=== PATIENT | male | born 1965 | race Hispanic/Latino ===

== ENCOUNTER 2019-06-24 09:41 | Outpatient (CLI) | payer BC ==
--- NOTE | 2019-06-24 11:56 | MRI ---
MRI LEFT SHOULDER PERFORMED WITHOUT CONTRAST ENHANCEMENT: Date: 06/24/19 HISTORY: Left shoulder pain. FINDINGS: There is mild arthrosis of the AC joint. There is a lower grade far anterior supraspinatus tendon tear and a very low grade undersurface tear near the junction of the supra and infraspinatus tendons. There is some mild tendinosis of the supras pinatus tendon also seen. Subscapularis muscle and tendon are normal. The biceps tendon is normal in position within the bicipi charisma groove. Slightly truncate appearance to the posterior and inferior labrum which may represent some mild degen erative fraying. There is some minimal increased signal change within the rotator cuff interval and a xillary pouch regions. This could suggest the presence of a mild capsulitis. IMPRESSION: 1. Low grade far anterior undersurface tear of the supraspinatus tendon, also with low grade undersu rface tearing near the junction of the supra and infraspinatus tendons. 2. Findings would suggest the possibility of a mild capsulitis. 3. Slightly truncate appearance to the posterior and inferior labrum. This could be on the basis of some degenerative fraying in this area. POS: TPC
== END 2019-06-24 09:42 | disposition home or self-care (01) ==
LOC: TBSIIMAG 09:41
PROVIDERS: ATTEND Orthopaedic Surgery
DX: M75.42 Impingement syndrome of left shoulder (principal); S46.812A Strain of other muscles, fascia and tendons at shoulder and upper arm level, left arm, initial encounter

== ENCOUNTER 2020-07-03 18:53 | Inpatient (IN) | payer BC ==
[~2020-07-03 18:53] MED LIST: Iopamidol-370 76% 500 ML 1 ML ONE
[2020-07-03 19:27] LABS: #Lymphocytes 1.1 thou/uL (1.20-3.40); #Monocytes 0.4 thou/uL (0.11-0.59); #Neutrophils 15.2 thou/uL (1.40-6.50); %Basophils 0.1 % (0.0-1.0); %Lymphocytes 6.4 % (21.0-51.0); %Monocytes 2.1 % (0.0-10.0); %Neutrophils 91.3 % (42.0-75.0); Hemoglobin 15.4 g/dL (14.0-18.0); Mean Corpuscular Hemoglobin 31.7 pg (27.0-31.0); Mean Corpuscular Volume 93.2 fL (78.0-98.0); Mean Platelet Volume 7.9 fL (7.4-10.4); Platelet Count 345 thou/uL (130-400); RBC Distribution Width 12.4 % (11.5-14.5); Red Blood Cell (RBC) Count 4.84 mill/uL (4.70-6.10); White Blood Cell (WBC) Count 16.7 thou/uL (4.8-10.8)
[2020-07-03 19:35] LABS: PTT 28.5 sec (22.9-36.1); Prothrombin Time 13.1 sec (12.0-14.7)
[2020-07-03 19:36] LABS: D-Dimer Test 1.93 *mcg/mL (0.27-0.43)
[2020-07-03 19:45] LABS: ALT (SGPT) 46 U/L (8-55); AST (SGOT) 33 U/L (5-34); Albumin 3.7 g/dL (3.5-5.0); Alkaline Phosphatase 212 U/L (40-110); Anion Gap 27 mmol/L (10-20); BUN (Urea Nitrogen) 49 mg/dL (8.4-25.7); Bilirubin, Total 0.4 mg/dL (0.2-1.2); Calc. Creatinine Clearance 0 mL/min (70-130); Calcium 9.1 mg/dL (7.8-10.44); Carbon Dioxide 19 mmol/L (22-29); Chloride 86 mmol/L (98-107); Globulin 5.5 g/dL (2.4-3.5); Glucose 547 mg/dL (70-105); Potassium 3.9 mmol/L (3.5-5.1); Protein, Total 9.2 g/dL (6.0-8.3); Sodium 128 mmol/L (136-145)
--- NOTE | 2020-07-03 20:14 | RAD ---
PORTABLE CHEST: Date: 07-03-2020 PROVIDED CLINICAL HISTORY: Shortness of breath, Covid positive. FINDINGS: Lungs are hyperinflated, limiting evaluation. The cardiac silhouette appears enlarged, like ly at least partially on the basis of portable technique. There is bilateral perihilar airspace disea se, left greater than right. No pleural fluid or pneumothorax apparent. IMPRESSION: Bilateral perihilar parenchymal opacity, changes can be seen in the setting of Covid pneumonia, but i s not specific. POS: RALPH
[2020-07-03] MEDS ORDERED: Cefepime 2 GM VIAL ONE (20:37)
--- NOTE | 2020-07-03 21:20 | CT ---
CT PULMONARY ANGIOGRAM WITH IV CONTRAST AND 3D MIP RECONSTRUCTIONS: Date: 07-03-2020 PROVIDED CLINICAL HISTORY: Shortness of breath FINDINGS: There is no evidence for central or segmental pulmonary embolus. There is fairly diffuse bilateral ground glass opacities. There is no consolidation, pleural fluid or pneumothorax apparent. The airway appears patent. There is no evidence for thoracic lymph node appar ent. Findings of fatty infiltration of the liver is demonstrated. The visualized portions of the upper abd omen appear otherwise unremarkable. The osseous structures demonstrate no concerning lytic or blastic lesions. IMPRESSION: 1. No evidence for central or segmental pulmonary embolus. 2. Diffuse bilateral ground glass opacities, compatible with inflammatory or atypical infectious pneu monitis. POS: RALPH
[2020-07-03] MEDS ORDERED: Metoclopramide HCl 10 MG/2 ML VIAL ONE (21:54)
[2020-07-03 22:19] LABS: Lactic Acid 1.9 mmol/L (0.5-2.2)
[2020-07-03 22:27] LABS: Troponin I Less than 0.010 ng/mL (< 0.028)
--- NOTE | 2020-07-03 22:41 | PDOC.FM ---
- Subjective Subjective: 54 yo M with HTN and DM here for worsening sxs. Sxs started 06/26. Tested positive on 06/28 at outside facility. No contacts or recent out of state toradol. Had fevers, chills, loss of taste and smell initially but since then those sxs have resolved. Due to worsening breathing and intractable hiccups for past two days he came into ER. He was placed on nasal cannula and is non hypoxic on 4L [place] - Objective Result Diagrams: 07/03/20 19:07 07/03/20 19:07 Dx/Plan (1) COVID-19 Code(s): U07.1 - COVID-19 Status: Acute (2) Diabetes Code(s): E11.9 - TYPE 2 DIABETES MELLITUS WITHOUT COMPLICATIONS Status: Acute (3) Hypertension Code(s): I10 - ESSENTIAL (PRIMARY) HYPERTENSION Status: Acute - Plan Plan: #Acute Hypoxic respiratory failure 2/2 COVID PNA -Sxs started 06/26, COVID+ on 06/28 -Requiring 4L O2 to maintain 95% saturation, mildly tachpneic, clinically stable otherwise -CTA neg for PE, but diffuse b/l ground glass opacities -Given vanc & cefepime in ER, will continue abx pending procal -Decadron, remdesivir & convalescent plasma -Admit to floor, monitor #Hyponatremia -2/2 WYATT vs. CKD -128, no changes in mentation -could be 2/2 renal injury, transient SIADH from acute process -Physiologic fluid resuscitation, recheck in AM #Intractable hiccups -Gabapentin, renally dosed #WYATT vs. CKD -baseline unknown but pt denies h/o this -Cr 3.11, gfr 21, electrolytes stable -Hold metformin & lisinopril -Will obtain urine studies -bolus & maintenance fluids, recheck in AM #Elevated lactic acid -3.4, downtrended to 1.9 #HTN -hold lisinopril, monitor BPs, can add PRNs if needed #DM2 -well controlled per patient, will check a1c -hold metformin due to WYATT/CKD -sliding scale pcp: ana admit: medical/inpt dvt ppx: 40 lovenox daily abx: none dispo: >48 hours
[2020-07-03] MEDS ORDERED: Dextrose 5% in Water 1,000 ML IV PRN (23:23)
[2020-07-03] MEDS ORDERED: Lactated Ringer's 1,000 ML IV SCH (23:30)
[2020-07-03] MEDS ORDERED: Dexamethasone 4 mg/ml Vial SLOW IVP SCH (23:30)
[2020-07-03] MEDS ORDERED: Dexamethasone 10 MG/ML VIAL ONE (23:46)
[2020-07-03] MEDS ORDERED: Gabapentin 300 MG CAP PO SCH (23:47)
[2020-07-03] MEDS ORDERED: Gabapentin 300 MG CAP PO PRN (23:48)
--- NOTE | 2020-07-03 23:55 | PDOC.FPRHP ---
- History of Present Illness Chief Complaint: breathing History of Present Illness: 54 yo M with HTN and DM here for worsening sxs. Sxs started 06/26. Tested positive on 06/28 at outside facility. No contacts or recent out of state toradol. Had fevers, chills, loss of taste and smell initially but since then those sxs have resolved. Due to worsening breathing and intractable hiccups for past two days he came into ER. He was placed on nasal cannula and is non hypoxic on 4L [place] ED Course: Given vanc, cefepime & reglan - Allergies/Adverse Reactions Allergies Allergy/AdvReac Type Severity Reaction Status Date / Time No Known Drug Allergies Allergy Verified 07/04/20 18:12 - History PMHx:DM2, HTN PSHx: denies FHx:n/c Social: Denies TAD - Review of Systems General: reports: fever/chills, weight/appetite/sleep changes ENT: denies: nasal congestion, rhinorrhea Respiratory: reports: cough, shortness of breath Cardiovascular: denies: chest pain Gastrointestinal: denies: nausea, vomiting, diarrhea, abdominal pain Skin: denies: rashes, lesions Musculoskeletal: denies: pain, tenderness Neurological: reports: weakness. denies: numbness, syncope, seizure - Vital signs BP: 139/88, MAP: 105, Pulse: 103, Resp: 24, Pain: 0, O2 sat: 93 on (4L Oxygen), Time: 07/03/2020 23:04. Wt: 104kg - Physical Exam Constitutional: NAD, awake, alert and oriented HEENT: normocephalic and atraumatic, EOMI, conjunctiva clear, MMM Neck: supple, FROM, trachea midline Chest: no-tender to palpation, no lesions Heart: normal S1/S2, no murmurs/rubs/gallops -Heart: tachycardic Lungs: no respiratory distress, good air movement, no wheezing -Lungs: mild bibasilar crackles Abdomen: soft, non-tender, bowel sounds present Musculoskeletal: normal structure, normal tone, ROM grossly normal Neurological: no focal deficit, CN II-XII intact Skin: no rash/lesions, good turgor, capillary refill <2 seconds Heme/Lymphatic: no unusual bruising or bleeding, no purpura Psychiatric: normal mood and affect, good judgment and insight FMR H&P: Results - Labs Result Diagrams: 07/04/20 05:43 07/04/20 05:43 Lab results: WBC 16.7 thou/uL (4.8-10.8) H 07/03/20 19:07 Hgb 15.4 g/dL (14.0-18.0) 07/03/20 19:07 Hct 45.2 % (42.0-52.0) 07/03/20 19:07 MCV 93.2 fL (78.0-98.0) 07/03/20 19:07 Plt Count 345 thou/uL (130-400) 07/03/20 19:07 Neutrophils % 91.3 % (42.0-75.0) H 07/03/20 19:07 Sodium 128 mmol/L (136-145) L 07/03/20 19:07 Potassium 3.9 mmol/L (3.5-5.1) 07/03/20 19:07 Chloride 86 mmol/L (98-107) L 07/03/20 19:07 Carbon Dioxide 19 mmol/L (22-29) L 07/03/20 19:07 BUN 49 mg/dL (8.4-25.7) H 07/03/20 19:07 Creatinine 3.11 mg/dL (0.7-1.3) H 07/03/20 19:07 Glucose 547 mg/dL (70-105) H 07/03/20 19:07 Lactic Acid 1.9 mmol/L (0.5-2.2) 07/03/20 21:49 Calcium 9.1 mg/dL (7.8-10.44) 07/03/20 19:07 Total Bilirubin 0.4 mg/dL (0.2-1.2) 07/03/20 19:07 AST 33 U/L (5-34) 07/03/20 19:07 ALT 46 U/L (8-55) 07/03/20 19:07 Alkaline Phosphatase 212 U/L (40-110) H 07/03/20 19:07 Serum Total Protein 9.2 g/dL (6.0-8.3) H 07/03/20 19:07 Albumin 3.7 g/dL (3.5-5.0) 12/28/20 19:07 - Radiology Interpretation Chest x-ray Status: image reviewed by me, report reviewed by me Additional comment: b/l perihilar parenchymal opacity CT scan - chest Status: report reviewed by me Additional comment: diffuse b/l ground glass opacities, no PE FMR H&P: A/P - Problem List (1) COVID-19 Current Visit: Yes Status: Acute Code(s): U07.1 - COVID-19 (2) Diabetes Current Visit: Yes Status: Acute Code(s): E11.9 - TYPE 2 DIABETES MELLITUS WITHOUT COMPLICATIONS (3) Hypertension Current Visit: Yes Status: Acute Code(s): I10 - ESSENTIAL (PRIMARY) HYPERTENSION - Plan #Acute Hypoxic respiratory failure 2/2 COVID PNA -Sxs started 06/26, COVID+ on 06/28 -Requiring 4L O2 to maintain 95% saturation, mildly tachpneic, clinically stable otherwise -CTA neg for PE, but diffuse b/l ground glass opacities -Given vanc & cefepime in ER, will continue abx pending procal -Decadron, remdesivir & convalescent plasma -Admit to floor, monitor #Hyponatremia -2/2 WYATT vs. CKD -128, no changes in mentation -could be 2/2 renal injury, transient SIADH from acute process -Physiologic fluid resuscitation, recheck in AM #Intractable hiccups -Gabapentin, renally dosed #WYATT vs. CKD -baseline unknown but pt denies h/o this -Cr 3.11, gfr 21, electrolytes stable -Hold metformin & lisinopril -Will obtain urine studies -bolus & maintenance fluids, recheck in AM #Elevated lactic acid -3.4, downtrended to 1.9 #HTN -hold lisinopril, monitor BPs, can add PRNs if needed #DM2 -well controlled per patient, will check a1c -hold metformin due to WYATT/CKD -sliding scale pcp: ana admit: medical/inpt dvt ppx: 40 lovenox daily abx: none dispo: >48 hours FMR H&P: Upper Level - Plan Date/Time: 07/03/20 3683 I, [], have evaluated this patient and agree with findings/plan as outlined by multicultural internship resident. Pertinent changes/additions are listed here. Addendum - Attending - Attending Attestation Date/Time: 07/04/202046 I personally evaluated the patient and discussed the management with Dr. Maradiaga and Clay last night in the ER. I agree with the History, Examination, Assessment and Plan documented above with any addition or exceptions noted below.
[2020-07-04] MEDS: Lactated Ringer's 1,000 ML IV SCH ×4 (00:59→20:57)
[2020-07-04 01:16] LABS: Hemoglobin A1c 10.6 % (4.0-6.0)
[2020-07-04 01:35] LABS: Troponin I Less than 0.010 ng/mL (< 0.028)
--- NOTE | 2020-07-04 05:42 | PDOC.FPRHP ---
- Allergies/Adverse Reactions Allergies Allergy/AdvReac Type Severity Reaction Status Date / Time No Known Drug Allergies Allergy Unverified 07/03/20 20:49 - History PMHx: PSHx: FHx: Social: - Vital signs BP: [] HR: [] RR: [] Tmax: [] Pox: []% on [] Wt: [] FMR H&P: Results - Labs Result Diagrams: 07/03/20 19:07 07/03/20 19:07 Lab results: WBC 16.7 thou/uL (4.8-10.8) H 07/03/20 19:07 Hgb 15.4 g/dL (14.0-18.0) 07/03/20 19:07 Hct 45.2 % (42.0-52.0) 07/03/20 19:07 MCV 93.2 fL (78.0-98.0) 07/03/20 19:07 Plt Count 345 thou/uL (130-400) 07/03/20 19:07 Neutrophils % 91.3 % (42.0-75.0) H 07/03/20 19:07 Sodium 128 mmol/L (136-145) L 07/03/20 19:07 Potassium 3.9 mmol/L (3.5-5.1) 07/03/20 19:07 Chloride 86 mmol/L (98-107) L 07/03/20 19:07 Carbon Dioxide 19 mmol/L (22-29) L 07/03/20 19:07 BUN 49 mg/dL (8.4-25.7) H 07/03/20 19:07 Creatinine 3.11 mg/dL (0.7-1.3) H 07/03/20 19:07 Glucose 547 mg/dL (70-105) H 07/03/20 19:07 Lactic Acid 1.9 mmol/L (0.5-2.2) 07/03/20 21:49 Calcium 9.1 mg/dL (7.8-10.44) 07/03/20 19:07 Total Bilirubin 0.4 mg/dL (0.2-1.2) 07/03/20 19:07 AST 33 U/L (5-34) 07/03/20 19:07 ALT 46 U/L (8-55) 07/03/20 19:07 Alkaline Phosphatase 212 U/L (40-110) H 07/03/20 19:07 C-Reactive Protein 30.44 mg/dL (= or < 0.5) H 07/04/20 00:55 Serum Total Protein 9.2 g/dL (6.0-8.3) H 07/03/20 19:07 Albumin 3.7 g/dL (3.5-5.0) 07/03/20 19:07 FMR H&P: A/P - Problem List (1) Acute respiratory failure with hypoxia Current Visit: Yes Status: Acute Code(s): J96.01 - ACUTE RESPIRATORY FAILURE WITH HYPOXIA (2) COVID-19 Current Visit: Yes Status: Acute Code(s): U07.1 - COVID-19 (3) Diabetes Current Visit: Yes Status: Acute Code(s): E11.9 - TYPE 2 DIABETES MELLITUS WITHOUT COMPLICATIONS (4) Hypertension Current Visit: Yes Status: Acute Code(s): I10 - ESSENTIAL (PRIMARY) HYPERTENSION - Plan #Acute Hypoxic respiratory failure 2/2 COVID PNA -Sxs started 06/26, COVID+ on 06/28 -Requiring 4L O2 to maintain 95% saturation, mildly tachpneic, clinically stable otherwise -CTA neg for PE, but diffuse b/l ground glass opacities -Given vanc & cefepime in ER, will continue abx as procal positive -Decadron, remdesivir & convalescent plasma -Admitted to medical, monitor #Hyponatremia -2/2 WYATT vs. CKD -128, no changes in mentation -could be 2/2 renal injury, transient SIADH from acute process -Physiologic fluid resuscitation #Intractable hiccups -Gabapentin, renally dosed #WYATT vs. CKD -baseline unknown but pt denies h/o this -Cr 3.11, gfr 21, electrolytes stable -Hold metformin & lisinopril -urine studies pending -bolus & maintenance fluids, recheck in AM #Elevated lactic acid -3.4, downtrended to 1.9 #HTN -hold lisinopril, monitor BPs, can add PRNs if needed #DM2 -A1C 10.6 -hold metformin due to WYATT/CKD -sliding scale pcp: ana admit: medical/inpt dvt ppx: 40 lovenox daily abx: none dispo: >48 hours FMR H&P: Upper Level - Plan Date/Time: 07/04/20 6095 I, [], have evaluated this patient and agree with findings/plan as outlined by internal controls manager resident. Pertinent changes/additions are listed here.
[2020-07-04 06:03] LABS: #Basophils 0.1 thou/uL (0.0-0.2); #Lymphocytes 0.5 thou/uL (1.20-3.40); #Monocytes 0.2 thou/uL (0.11-0.59); #Neutrophils 11.4 thou/uL (1.40-6.50); %Basophils 0.9 % (0.0-1.0); %Eosinophils 0.1 % (0.0-10.0); %Lymphocytes 4.4 % (21.0-51.0); %Monocytes 1.9 % (0.0-10.0); %Neutrophils 92.7 % (42.0-75.0); Hemoglobin 13.2 g/dL (14.0-18.0); Mean Corpuscular HGB CONC 32.5 g/dL (32.0-36.0); Mean Corpuscular Volume 92.3 fL (78.0-98.0); Mean Platelet Volume 7.5 fL (7.4-10.4); Platelet Count 365 thou/uL (130-400); RBC Distribution Width 12.3 % (11.5-14.5); Red Blood Cell (RBC) Count 4.39 mill/uL (4.70-6.10); White Blood Cell (WBC) Count 12.3 thou/uL (4.8-10.8)
[2020-07-04] MEDS ORDERED: HumaLOG 300 UNITS/3 ML VIAL ONE (06:04)
[2020-07-04 06:16] LABS: ALT (SGPT) 38 U/L (8-55); AST (SGOT) 31 U/L (5-34); Alkaline Phosphatase 153 U/L (40-110); Anion Gap 19 mmol/L (10-20); BUN (Urea Nitrogen) 45 mg/dL (8.4-25.7); Bilirubin, Total 0.4 mg/dL (0.2-1.2); Calc. Creatinine Clearance 0 mL/min (70-130); Calcium 8.2 mg/dL (7.8-10.44); Carbon Dioxide 21 mmol/L (22-29); Chloride 96 mmol/L (98-107); Globulin 4.5 g/dL (2.4-3.5); Glucose 459 mg/dL (70-105); Potassium 4.1 mmol/L (3.5-5.1); Protein, Total 7.5 g/dL (6.0-8.3); Sodium 132 mmol/L (136-145)
[2020-07-04] MEDS: HumaLOG 300 UNITS/3 ML VIAL SC PRN ×4 (06:25→20:08)
--- NOTE | 2020-07-04 06:53 | PDOC.FM ---
- Subjective Subjective: Patient reports that he feels better on the high flow than when he came in. He reports that his original symptoms improved and then worsened. - Objective Result Diagrams: 07/04/20 05:43 07/04/20 05:43 Phys Exam - Physical Examination Constitutional: NAD HEENT: moist MMs, sclera anicteric Neck: supple, full ROM Respiratory: no wheezing tachycardic Cardiovascular: RRR, no significant murmur Gastrointestinal: soft, non-tender Musculoskeletal: no edema, pulses present Neurological: non-focal, moves all 4 limbs Psychiatric: normal affect Skin: no rash Dx/Plan (1) Acute respiratory failure with hypoxia Code(s): J96.01 - ACUTE RESPIRATORY FAILURE WITH HYPOXIA Status: Acute (2) COVID-19 Code(s): U07.1 - COVID-19 Status: Acute (3) Diabetes Code(s): E11.9 - TYPE 2 DIABETES MELLITUS WITHOUT COMPLICATIONS Status: Acute (4) Hypertension Code(s): I10 - ESSENTIAL (PRIMARY) HYPERTENSION Status: Acute - Plan Plan: #Acute Hypoxic respiratory failure 2/2 COVID PNA -Sxs started 06/26, COVID+ on 06/28 -Reports improved COVID symptoms and then worsening, suspect possible bacterial super-infection -Requiring 40L @ 70% HFNC, mildly tachpneic, clinically stable otherwise -CTA neg for PE, but diffuse b/l ground glass opacities -Given vanc & cefepime in ER, will continue rocephin and azithro as procal positive -Decadron & convalescent plasma -No remdesivir due to kidney function -Admitted to medical, monitor #Hyponatremia, improved -2/2 WYATT vs. CKD -128 >132, no changes in mentation -could be 2/2 renal injury, transient SIADH from acute process -Physiologic fluid resuscitation appears to be helping #Intractable hiccups -Gabapentin, renally dosed #WYATT vs. CKD -baseline unknown but pt denies h/o this; reports decreased PO intake over the last several days due to coughing -Cr 3.11, GFR 21 > Cr 2.29, GFR 30; electrolytes stable -Hold metformin & lisinopril -urine studies pending -bolus & maintenance fluids, recheck in AM #Anion gap metabolic acidosis, improved -gap 23>15 -elevated lactic acid 3.4>1.9 -will continue to monitor with fluid resuscitation and glucose management #HTN -hold lisinopril, monitor BPs, can add PRNs if needed #DM2 -A1C 10.6 -hold metformin due to WYATT/CKD; reports he takes trulicity weekly, "maximum dose"; will med-rec -sliding scale, will add long-acting in am pending sliding scale requirements pcp: ana admit: medical/inpt dvt ppx: 40 lovenox daily dispo: >48 hours Addendum - Attending - Attending Attestation Date/Time: 07/04/20 [id number] I personally evaluated the patient and discussed the management with Dr. Cavazos. I agree with the History, Examination, Assessment and Plan documented above with any addition or exceptions noted below. Patient somewhat improved. Continue COVID care. Glucose control. Will initiate abx at this time given suspicion for possible superimposed bacterial infection.
[2020-07-04] MEDS ORDERED: Enoxaparin Sodium 40 MG/0.4 ML SYRINGE ONE (08:10)
[2020-07-04] MEDS ORDERED: Dexamethasone 10 MG/ML VIAL ONE (08:10)
[2020-07-04] MEDS: Enoxaparin Sodium 40 MG/0.4 ML SYRINGE SC SCH (08:21)
[2020-07-04 08:33] LABS: SARS-CoV-2 MS2 Positive; SARS-CoV-2 N Gene Positive; SARS-CoV-2 S Gene Positive; SARS-CoV-2 by NAA DETECTED (NotDetected); SARS-CoV-2 orf1ab Positive
[2020-07-04] MEDS ORDERED: Azithromycin 250 MG TAB PO SCH (09:00)
[2020-07-04] MEDS ORDERED: Enoxaparin Sodium 30 MG/0.3 ML SYRINGE SC SCH ×2 (09:00)
[2020-07-04] MEDS ORDERED: Dexamethasone 4 mg/ml Vial SLOW IVP SCH (09:00)
[2020-07-04] MEDS ORDERED: Azithromycin 500 MG in Sodium Chloride 0.9% 250 ML 250 ML IVPB SCH (09:30)
[2020-07-04] MEDS ORDERED: cefTRIAXone\\ROCEPHIN 1 GM VIAL ONE (10:57)
[2020-07-04] MEDS ORDERED: Azithromycin 250 MG TAB ONE (10:57)
[2020-07-04] MEDS: cefTRIAXone\\ROCEPHIN 1 GM in Sodium Chloride 0.9% 100 ML IVPB SCH (11:17)
[2020-07-04 18:12] LABS: Creatinine, Urine 49.3 mg/dL (63-166)
[2020-07-04 18:17] VITALS: BMI 33.8
[2020-07-04] MEDS: Mometasone 100 MCG/Formoterol 5 MCG 120 PUFF INHALER INH SCH (20:04)
[2020-07-05] MEDS ORDERED: Metoclopramide HCl 10 MG TAB PO SCH (00:15)
[2020-07-05] MEDS: guaiFENesin ER 600 MG TAB PO SCH ×3 (00:39→20:15)
[2020-07-05] MEDS: Mometasone 100 MCG/Formoterol 5 MCG 120 PUFF INHALER INH SCH ×2 (05:21→18:15)
[2020-07-05] MEDS: Benzonatate 100 MG CAP PO SCH ×3 (05:21→20:15)
[2020-07-05] MEDS: HumaLOG 300 UNITS/3 ML VIAL SC PRN ×4 (05:22→20:16)
[2020-07-05] MEDS: Lactated Ringer's 1,000 ML IV SCH ×3 (05:24→20:16)
--- NOTE | 2020-07-05 06:18 | PDOC.FM ---
- Subjective Subjective: Patient doing well this morning, reports his breathing has improved. States he was up all night with hiccups which makes his breathing more labored and makes it difficult to sleep. Endorses having an appetite this morning. - Objective Vital Signs & Weight: Vital Signs (12 hours) Temp Pulse Pulse Resp BP BP Pulse Ox 07/05/20 04:00 98.0 F 59 L 15 128/77 94 L 07/04/20 23:53 98.0 F 90 19 131/75 93 L 07/04/20 22:00 98.3 F 65 24 H 129/74 07/04/20 20:00 92 L 07/04/20 19:50 98 F 68 24 H 131/70 07/04/20 19:35 97.9 F 71 18 145/77 H Weight Weight 104 kg I&O: 07/03/20 07/04/20 07/05/20 06:59 06:59 06:59 Intake Total 840 Output Total 600 Balance 240 Result Diagrams: 07/05/20 07:47 07/05/20 07:47 Phys Exam - Physical Examination Constitutional: NAD HEENT: moist MMs, sclera anicteric Neck: supple, full ROM Respiratory: no wheezing decreased breath sounds throughout Cardiovascular: RRR, no significant murmur Gastrointestinal: soft, positive bowel sounds Musculoskeletal: no edema Neurological: non-focal, moves all 4 limbs Psychiatric: normal affect Skin: no rash, normal turgor Dx/Plan (1) Acute respiratory failure with hypoxia Code(s): J96.01 - ACUTE RESPIRATORY FAILURE WITH HYPOXIA Status: Acute (2) COVID-19 Code(s): U07.1 - COVID-19 Status: Acute (3) Diabetes Code(s): E11.9 - TYPE 2 DIABETES MELLITUS WITHOUT COMPLICATIONS Status: Acute (4) Hypertension Code(s): I10 - ESSENTIAL (PRIMARY) HYPERTENSION Status: Acute - Plan Plan: #Acute Hypoxic respiratory failure 2/2 COVID PNA -Sxs started 06/26, COVID+ on 06/28 -Reports improved COVID symptoms and then worsening, suspect possible bacterial super-infection -Despite nursing documentation overnight, patient still requiring HFNC, 30L @ 75%; will continue to wean as possible -CTA neg for PE, but diffuse b/l ground glass opacities -Given vanc & cefepime in ER, will continue rocephin and azithro as procal positive -Continue Decadron, + protonix for GI support -S/P convalescent plasma -No remdesivir due to kidney function -Admitted to medical, monitor #Hyponatremia, improved -2/2 WYATT vs. CKD -128 >132>135, no changes in mentation -could be 2/2 renal injury, transient SIADH from acute process -Physiologic fluid resuscitation appears to be helping #Intractable hiccups -will try to michi gabapentin today as this has helped with hiccups, and reglan prn (both renally dosed) #WYATT on CKD -baseline unknown but pt denies h/o this; reports decreased PO intake over the last several days due to coughing -Cr 3.11, GFR 21 > Cr 2.29, GFR 30 > Cr 1.69, GFR 43; electrolytes stable -Hold metformin & lisinopril -urine studies demonstrate an intrinsic disease process -maintenance fluids, will wean today as patient increases po intake #Anion gap metabolic acidosis, improved -gap 23>15 -elevated lactic acid 3.4>1.9 -will continue to monitor with fluid resuscitation and glucose management #HTN -hold lisinopril, monitor BPs, can add PRNs if needed #DM2 -A1C 10.6 -hold metformin due to WYATT/CKD; reports he takes trulicity weekly, "maximum dose"; will med-rec -sliding scale, will start 25u lantus this am and titrate accordingly pcp: ana admit: medical/inpt dvt ppx: 40 lovenox daily dispo: >48 hours, respiratory support and DM management Addendum - Attending - Attending Attestation Date/Time: 07/05/20 5619 I personally evaluated the patient and discussed the management with Dr. Cavazos. I agree with the History, Examination, Assessment and Plan documented above with any addition or exceptions noted below.
[2020-07-05] MEDS: Azithromycin 250 MG TAB PO SCH (08:16)
[2020-07-05] MEDS: Enoxaparin Sodium 40 MG/0.4 ML SYRINGE SC SCH (08:17)
[2020-07-05] MEDS: Gabapentin 300 MG CAP PO SCH ×2 (08:19→20:15)
[2020-07-05 08:44] LABS: #Lymphocytes 0.9 thou/uL (1.20-3.40); #Monocytes 0.7 thou/uL (0.11-0.59); #Neutrophils 10.9 thou/uL (1.40-6.50); %Basophils 0.1 % (0.0-1.0); %Eosinophils 0.1 % (0.0-10.0); %Lymphocytes 7.5 % (21.0-51.0); %Monocytes 5.2 % (0.0-10.0); %Neutrophils 87.2 % (42.0-75.0); Hemoglobin 12.3 g/dL (14.0-18.0); Mean Corpuscular HGB CONC 33.5 g/dL (32.0-36.0); Mean Corpuscular Hemoglobin 30.7 pg (27.0-31.0); Mean Corpuscular Volume 91.6 fL (78.0-98.0); Mean Platelet Volume 7.5 fL (7.4-10.4); Platelet Count 397 thou/uL (130-400); RBC Distribution Width 12.2 % (11.5-14.5); Red Blood Cell (RBC) Count 4.01 mill/uL (4.70-6.10); White Blood Cell (WBC) Count 12.6 thou/uL (4.8-10.8)
[2020-07-05 08:57] LABS: ALT (SGPT) 31 U/L (8-55); AST (SGOT) 20 U/L (5-34); Alkaline Phosphatase 138 U/L (40-110); Anion Gap 19 mmol/L (10-20); BUN (Urea Nitrogen) 42 mg/dL (8.4-25.7); Bilirubin, Total 0.3 mg/dL (0.2-1.2); Calc. Creatinine Clearance 75 mL/min (70-130); Carbon Dioxide 22 mmol/L (22-29); Chloride 98 mmol/L (98-107); Globulin 3.1 g/dL (2.4-3.5); Glucose 457 mg/dL (70-105); Potassium 3.8 mmol/L (3.5-5.1); Protein, Total 6.1 g/dL (6.0-8.3); Sodium 135 mmol/L (136-145)
[2020-07-05] MEDS ORDERED: Azithromycin 250 MG in Sodium Chloride 0.9% 250 ML 250 ML IVPB SCH (09:00)
[2020-07-05] MEDS ORDERED: Insulin Glargine 25 UNITS in Pre-Filled Syringe 1 EACH SC SCH (09:00)
[2020-07-05] MEDS ORDERED: Insulin Glargine 20 UNITS in Pre-Filled Syringe 1 EACH SC SCH (09:00)
[2020-07-05] MEDS: Dexamethasone 4 MG TAB PO SCH (09:43)
[2020-07-05] MEDS: cefTRIAXone\\ROCEPHIN 1 GM in Sodium Chloride 0.9% 100 ML IVPB SCH (11:49)
[2020-07-05] MEDS: Prochlorperazine Maleate 5 MG TAB PO SCH ×3 (11:49→22:31)
[2020-07-05] MEDS: Melatonin 3 MG TAB PO PRN ×2 (20:15→22:31)
[2020-07-06] MEDS: Mometasone 100 MCG/Formoterol 5 MCG 120 PUFF INHALER INH SCH ×2 (05:15→17:03)
[2020-07-06] MEDS: HumaLOG 300 UNITS/3 ML VIAL SC PRN ×4 (05:15→20:39)
[2020-07-06] MEDS: Prochlorperazine Maleate 5 MG TAB PO SCH ×4 (05:15→20:26)
--- NOTE | 2020-07-06 05:58 | PDOC.FM ---
- Subjective Subjective: Patient reports he feels better this morning. Still continues to cough, but hiccups were greatly improved yesterday. - Objective Vital Signs & Weight: Vital Signs (12 hours) Temp Pulse Resp BP Pulse Ox 07/06/20 05:02 98.0 F 75 18 136/87 93 L 07/06/20 00:00 98.3 F 72 18 130/76 92 L 07/05/20 22:45 89 L 07/05/20 20:00 98.3 F 83 18 137/82 Weight Admit Weight 104.009 kg Weight 104 kg I&O: 07/04/20 07/05/20 07/06/20 06:59 06:59 06:59 Intake Total 3140 Output Total 600 Balance 2540 Result Diagrams: 07/06/20 05:56 07/06/20 05:56 Phys Exam - Physical Examination Constitutional: NAD HEENT: moist MMs, sclera anicteric Neck: supple, full ROM decreased breath sounds LIZETH Cardiovascular: RRR, no significant murmur Gastrointestinal: soft, non-tender Musculoskeletal: no edema, pulses present Neurological: non-focal, moves all 4 limbs Psychiatric: normal affect Skin: no rash, normal turgor Dx/Plan (1) Acute respiratory failure with hypoxia Code(s): J96.01 - ACUTE RESPIRATORY FAILURE WITH HYPOXIA Status: Acute (2) COVID-19 Code(s): U07.1 - COVID-19 Status: Acute (3) Diabetes Code(s): E11.9 - TYPE 2 DIABETES MELLITUS WITHOUT COMPLICATIONS Status: Acute (4) Hypertension Code(s): I10 - ESSENTIAL (PRIMARY) HYPERTENSION Status: Acute - Plan Plan: #Acute Hypoxic respiratory failure 2/2 COVID PNA -Sxs started 06/26, COVID+ on 06/28 -Reports improved COVID symptoms and then worsening, suspect possible bacterial super-infection -Despite nursing documentation overnight, patient still requiring HFNC, 30L @ 73% but was satting mid-80s this morning and will likely require an increase today (called nursing to contact RT); will continue to wean as possible -CTA neg for PE, but diffuse b/l ground glass opacities -Given vanc & cefepime in ER, will continue rocephin (07/04) and azithro (07/04) as procal positive -procal 2.42>0.35 -Continue Decadron, + protonix for GI support -S/P convalescent plasma -No remdesivir due to kidney function -Admitted to medical, monitor #Hyponatremia, improved -2/2 WYATT vs. CKD -128 >132>135, no changes in mentation -could be 2/2 renal injury, transient SIADH from acute process -Physiologic fluid resuscitation appears to be helping #Intractable hiccups -Continue michi gabapentin -Compazine michi and this appears to help, will increase to 10mg #WYATT on CKD, improved -baseline unknown but pt denies h/o this; reports decreased PO intake over the last several days due to coughing -Cr 3.11, GFR 21 > Cr 1.44, GFR 52 electrolytes stable -Hold metformin & lisinopril -urine studies demonstrate an intrinsic disease process -maintenance fluids, will wean today as patient increases po intake #Hypokalemia -potassium 3.3 -will replete and recheck #Anion gap metabolic acidosis, resolved -gap 23>10 -elevated lactic acid 3.4>1.9 -will continue to monitor with fluid resuscitation and glucose management #HTN -hold lisinopril, monitor BPs, can add PRNs if needed #DM2 -A1C 10.6 -hold metformin due to WYATT/CKD; reports he takes trulicity weekly, "maximum dose"; will med-rec -sliding scale, will increase lantus to 40u this am and titrate accordingly pcp: ana admit: medical/inpt dvt ppx: 40 lovenox daily dispo: >48 hours, respiratory support and DM management Addendum - Attending - Attending Attestation Date/Time: 07/06/20 1327 I personally evaluated the patient and discussed the management with Dr. Cavazos. I agree with the History, Examination, Assessment and Plan documented above with any addition or exceptions noted below. Patient improved. Continue HFNC and usual COVID therapy. His hiccups are improved on Compazine. Continue that as it leads to improved respiration.
[2020-07-06 06:36] LABS: #Lymphocytes 0.9 thou/uL (1.20-3.40); #Monocytes 0.8 thou/uL (0.11-0.59); #Neutrophils 13.4 thou/uL (1.40-6.50); %Basophils 0.1 % (0.0-1.0); %Lymphocytes 6.2 % (21.0-51.0); %Monocytes 5.2 % (0.0-10.0); %Neutrophils 88.5 % (42.0-75.0); Hemoglobin 11.8 g/dL (14.0-18.0); Mean Corpuscular HGB CONC 33.3 g/dL (32.0-36.0); Mean Corpuscular Hemoglobin 30.6 pg (27.0-31.0); Mean Platelet Volume 7.2 fL (7.4-10.4); Platelet Count 346 thou/uL (130-400); RBC Distribution Width 11.9 % (11.5-14.5); Red Blood Cell (RBC) Count 3.85 mill/uL (4.70-6.10); White Blood Cell (WBC) Count 15.1 thou/uL (4.8-10.8)
[2020-07-06 07:03] LABS: ALT (SGPT) 26 U/L (8-55); AST (SGOT) 20 U/L (5-34); Albumin 2.9 g/dL (3.5-5.0); Alkaline Phosphatase 124 U/L (40-110); Anion Gap 13 mmol/L (10-20); BUN (Urea Nitrogen) 37 mg/dL (8.4-25.7); Bilirubin, Total 0.3 mg/dL (0.2-1.2); Calc. Creatinine Clearance 88 mL/min (70-130); Calcium 8.1 mg/dL (7.8-10.44); Carbon Dioxide 25 mmol/L (22-29); Chloride 100 mmol/L (98-107); Globulin 3.7 g/dL (2.4-3.5); Glucose 319 mg/dL (70-105); Potassium 3.3 mmol/L (3.5-5.1); Protein, Total 6.6 g/dL (6.0-8.3); Sodium 135 mmol/L (136-145)
[2020-07-06] MEDS: Dexamethasone 4 MG TAB PO SCH (08:37)
[2020-07-06] MEDS: Benzonatate 100 MG CAP PO SCH ×3 (08:38→20:23)
[2020-07-06] MEDS: Gabapentin 300 MG CAP PO SCH ×2 (08:38→20:23)
[2020-07-06] MEDS: guaiFENesin ER 600 MG TAB PO SCH ×2 (08:38→20:23)
[2020-07-06] MEDS: Enoxaparin Sodium 40 MG/0.4 ML SYRINGE SC SCH (08:38)
[2020-07-06] MEDS: Azithromycin 250 MG TAB PO SCH (08:38)
[2020-07-06] MEDS ORDERED: Prochlorperazine Maleate 5 MG TAB PO SCH (08:45)
[2020-07-06] MEDS ORDERED: Potassium Chloride 20 MEQ TAB PO SCH (09:00)
[2020-07-06] MEDS ORDERED: Insulin Glargine 40 UNITS in Pre-Filled Syringe 1 EACH SC SCH (09:00)
[2020-07-06] MEDS: cefTRIAXone\\ROCEPHIN 1 GM in Sodium Chloride 0.9% 100 ML IVPB SCH (10:17)
[2020-07-07] MEDS: Prochlorperazine Maleate 5 MG TAB PO SCH ×5 (02:20→23:30)
[2020-07-07] MEDS: HumaLOG 300 UNITS/3 ML VIAL SC PRN ×4 (05:27→20:34)
[2020-07-07] MEDS: Mometasone 100 MCG/Formoterol 5 MCG 120 PUFF INHALER INH SCH ×2 (05:47→18:14)
[2020-07-07] MEDS ORDERED: Insulin Glargine 60 UNITS in Pre-Filled Syringe 1 EACH SC SCH ×2 (05:48→09:00)
--- NOTE | 2020-07-07 05:54 | PDOC.FM ---
- Subjective Subjective: Patient doing okay this morning, reports his symptoms are about the same. States medications help with his hiccups but wear off quickly. Continues to have cough. - Objective Vital Signs & Weight: Vital Signs (12 hours) Temp Pulse Resp BP BP Pulse Ox 07/07/20 05:29 79 20 151/76 H 95 07/07/20 01:46 93 L 07/07/20 01:10 20 154/80 H 93 L 07/06/20 20:30 98.2 F 81 18 145/84 H 87 L Weight Admit Weight 104.009 kg Weight 104 kg I&O: 07/05/20 07/06/20 07/07/20 06:59 06:59 06:59 Intake Total 3140 Output Total 600 Balance 2540 Result Diagrams: 07/07/20 06:08 07/07/20 06:08 Phys Exam - Physical Examination Constitutional: NAD HEENT: moist MMs, sclera anicteric Neck: supple, full ROM coarse breath sounds throughout Cardiovascular: RRR, no significant murmur Gastrointestinal: soft, no distention Musculoskeletal: no edema Neurological: non-focal, moves all 4 limbs Psychiatric: normal affect Skin: no rash Dx/Plan (1) Acute respiratory failure with hypoxia Code(s): J96.01 - ACUTE RESPIRATORY FAILURE WITH HYPOXIA Status: Acute (2) COVID-19 Code(s): U07.1 - COVID-19 Status: Acute (3) Diabetes Code(s): E11.9 - TYPE 2 DIABETES MELLITUS WITHOUT COMPLICATIONS Status: Acute (4) Hypertension Code(s): I10 - ESSENTIAL (PRIMARY) HYPERTENSION Status: Acute - Plan Plan: #Acute Hypoxic respiratory failure 2/2 COVID PNA -Sxs started 06/26, COVID+ on 06/28 -Reports improved COVID symptoms and then worsening, suspect possible bacterial super-infection -Required increasing HFNC yesterday to 60L @ 60%; will continue to wean as pos sible -Controlling hiccups appears to help with respiratory function -CTA neg for PE, but diffuse b/l ground glass opacities -Given vanc & cefepime in ER, will continue rocephin (07/04) and azithro (07/04) (today is day 4) as procal positive -procal 2.42>0.35>0.27 -Continue Decadron, + protonix for GI support -S/P convalescent plasma -No remdesivir due to kidney function -Admitted to medical, monitor #Hyponatremia, improved -2/2 WYATT vs. CKD -128 >132>135, no changes in mentation -could be 2/2 renal injury, transient SIADH from acute process -Physiologic fluid resuscitation appears to be helping #Intractable hiccups -Continue michi gabapentin -Compazine michi and this appears to help #WYATT on CKD, likely resolved -baseline unknown but pt denies h/o this; reports decreased PO intake over the last several days due to coughing -Cr 3.11, GFR 21 > Cr 1.12, GFR 69 -Hold metformin -urine studies demonstrate an intrinsic disease process -maintenance fluids, will wean today as patient increases po intake #Hypokalemia -potassium 3.4 -will replete and recheck #Anion gap metabolic acidosis, resolved -gap 23>10 -elevated lactic acid 3.4>1.9 -will continue to monitor with fluid resuscitation and glucose management #HTN -will restart lisinopril/HCTZ #DM2 -A1C 10.6 -hold metformin due to WYATT/CKD; reports he takes trulicity weekly, "maximum dose"; will med-rec -sliding scale, will increase lantus to 60u this am and titrate accordingly pcp: ana admit: medical/inpt dvt ppx: 40 lovenox daily dispo: >48 hours, respiratory support and DM management Addendum - Attending - Attending Attestation Date/Time: 07/07/20 1111 I personally evaluated the patient and discussed the management with Dr. Cavazos. I agree with the History, Examination, Assessment and Plan documented above with any addition or exceptions noted below. Patient overall stable. Escalating insulin regimen to help with glycemic control. Increase Compazine for his hiccups that are a large cause of his respiratory decompensation. Continue to wean HFNC as tolerated.
[2020-07-07 06:35] LABS: #Basophils 0.1 thou/uL (0.0-0.2); #Lymphocytes 1.2 thou/uL (1.20-3.40); #Monocytes 0.5 thou/uL (0.11-0.59); #Neutrophils 13.5 thou/uL (1.40-6.50); %Basophils 0.8 % (0.0-1.0); %Eosinophils 0.3 % (0.0-10.0); Hemoglobin 12.5 g/dL (14.0-18.0); Mean Corpuscular Hemoglobin 31.3 pg (27.0-31.0); Mean Platelet Volume 7.2 fL (7.4-10.4); Platelet Count 240 thou/uL (130-400); RBC Distribution Width 11.9 % (11.5-14.5); White Blood Cell (WBC) Count 15.3 thou/uL (4.8-10.8)
[2020-07-07 07:02] LABS: ALT (SGPT) 27 U/L (8-55); AST (SGOT) 21 U/L (5-34); Albumin 2.9 g/dL (3.5-5.0); Alkaline Phosphatase 118 U/L (40-110); Anion Gap 17 mmol/L (10-20); BUN (Urea Nitrogen) 24 mg/dL (8.4-25.7); Bilirubin, Total 0.6 mg/dL (0.2-1.2); Calc. Creatinine Clearance 113 mL/min (70-130); Calcium 7.9 mg/dL (7.8-10.44); Carbon Dioxide 22 mmol/L (22-29); Chloride 99 mmol/L (98-107); Globulin 3.4 g/dL (2.4-3.5); Glucose 195 mg/dL (70-105); Potassium 3.4 mmol/L (3.5-5.1); Protein, Total 6.3 g/dL (6.0-8.3); Sodium 135 mmol/L (136-145)
[2020-07-07] MEDS ORDERED: Potassium Chloride 20 MEQ TAB PO SCH (08:45)
[2020-07-07] MEDS: Dexamethasone 4 MG TAB PO SCH (09:25)
[2020-07-07] MEDS: Enoxaparin Sodium 40 MG/0.4 ML SYRINGE SC SCH (09:26)
[2020-07-07] MEDS: Azithromycin 250 MG TAB PO SCH (09:26)
[2020-07-07] MEDS: guaiFENesin ER 600 MG TAB PO SCH ×2 (09:26→20:33)
[2020-07-07] MEDS: Benzonatate 100 MG CAP PO SCH ×3 (09:26→20:33)
[2020-07-07] MEDS: Gabapentin 300 MG CAP PO SCH (09:26)
[2020-07-07] MEDS: cefTRIAXone\\ROCEPHIN 1 GM in Sodium Chloride 0.9% 100 ML IVPB SCH (12:12)
[2020-07-07] MEDS: Lisinopril/Hydrochlorothiazide 20/25 mg Tablet PO SCH (12:13)
--- NOTE | 2020-07-08 05:37 | PDOC.FM ---
- Subjective Subjective: Doing okay this morning. Oxygen 99% while on his stomach, then desats when he sits up. Hiccups have improved greatly since increasing the compazine. - Objective Vital Signs & Weight: Vital Signs (12 hours) Temp Pulse Resp BP BP Pulse Ox 07/08/20 04:59 97.7 F 81 18 143/89 H 86 L 07/08/20 00:25 83 20 147/85 H 89 L 07/08/20 00:06 92 L 07/07/20 21:05 98.1 F 87 18 144/83 H 92 L Weight Admit Weight 104.009 kg Weight 104 kg I&O: 07/06/20 07/07/20 07/08/20 06:59 06:59 06:59 Intake Total 500 Output Total 650 Balance -150 Result Diagrams: 07/08/20 05:50 07/08/20 05:50 Phys Exam - Physical Examination Constitutional: NAD HEENT: moist MMs, sclera anicteric Neck: supple, full ROM Respiratory: no wheezing distant breath sounds Cardiovascular: RRR, no significant murmur Gastrointestinal: soft, no distention Musculoskeletal: no edema Neurological: non-focal, moves all 4 limbs Psychiatric: normal affect Skin: no rash Dx/Plan (1) Acute respiratory failure with hypoxia Code(s): J96.01 - ACUTE RESPIRATORY FAILURE WITH HYPOXIA Status: Acute (2) COVID-19 Code(s): U07.1 - COVID-19 Status: Acute (3) Diabetes Code(s): E11.9 - TYPE 2 DIABETES MELLITUS WITHOUT COMPLICATIONS Status: Acute (4) Hypertension Code(s): I10 - ESSENTIAL (PRIMARY) HYPERTENSION Status: Acute - Plan Plan: #Acute Hypoxic respiratory failure 2/2 COVID PNA -Sxs started 06/26, COVID+ on 06/28 -Reports improved COVID symptoms and then worsening, suspect possible bacterial super-infection -Required increasing HFNC yesterday to 60L @ 73% (does well when proned); will continue to wean as possible -Controlling hiccups appears to help with respiratory function -CTA neg for PE, but diffuse b/l ground glass opacities -Given vanc & cefepime in ER, will continue rocephin (07/04) and azithro (07/04) (today is day 5) as procal positive -procal 2.42>0.35>0.27 -Continue Decadron, + protonix for GI support -S/P convalescent plasma -No remdesivir due to kidney function -Admitted to medical, monitor #Hyponatremia, improved -2/2 WYATT vs. CKD -128 >132>135>130, no changes in mentation -could be 2/2 renal injury, transient SIADH from acute process #Intractable hiccups -Continue michi gabapentin -Compazine michi and this appears to help #WYATT on CKD, likely resolved -baseline unknown but pt denies h/o this; reports decreased PO intake over the last several days due to coughing -Cr 3.11, GFR 21 > Cr 1.24, GFR 61 -Hold metformin -urine studies demonstrate an intrinsic disease process -maintenance fluids, will wean today as patient increases po intake #Hypokalemia, resolved -potassium 3.4>3,8 -will replete and recheck #Anion gap metabolic acidosis, resolved -gap 23>10 -elevated lactic acid 3.4>1.9 -will continue to monitor with fluid resuscitation and glucose management #HTN -will restart lisinopril/HCTZ #DM2 -A1C 10.6 -hold metformin due to WYATT/CKD; reports he takes trulicity weekly, "maximum dose"; will med-rec -sliding scale, will increase lantus to 70u this am and titrate accordingly pcp: ana admit: medical/inpt dvt ppx: 40 lovenox daily dispo: respiratory support and DM management Addendum - Attending - Attending Attestation Date/Time: 07/08/20 9343 I personally evaluated the patient and discussed the management with Dr. Cavazos. I agree with the History, Examination, Assessment and Plan documented above with any addition or exceptions noted below. Patient overall stable. Hiccups improved, continue Compazine. Continue to wean from HFNC as tolerated. Will repeat CXR today. Needs to increase ambulation. Increasing insulin regimen for his uncontrolled T2DM.
[2020-07-08] MEDS: Mometasone 100 MCG/Formoterol 5 MCG 120 PUFF INHALER INH SCH ×2 (05:42→18:01)
[2020-07-08] MEDS: Prochlorperazine Maleate 5 MG TAB PO SCH ×3 (05:42→18:01)
[2020-07-08] MEDS: HumaLOG 300 UNITS/3 ML VIAL SC PRN ×3 (06:05→21:17)
[2020-07-08 06:12] LABS: #Lymphocytes 0.9 thou/uL (1.20-3.40); #Monocytes 0.5 thou/uL (0.11-0.59); #Neutrophils 13.8 thou/uL (1.40-6.50); %Basophils 0.1 % (0.0-1.0); %Eosinophils 0.3 % (0.0-10.0); %Lymphocytes 5.6 % (21.0-51.0); %Monocytes 3.5 % (0.0-10.0); %Neutrophils 90.6 % (42.0-75.0); Hemoglobin 12.2 g/dL (14.0-18.0); Mean Corpuscular HGB CONC 32.9 g/dL (32.0-36.0); Mean Corpuscular Hemoglobin 30.3 pg (27.0-31.0); Mean Corpuscular Volume 92.1 fL (78.0-98.0); Mean Platelet Volume 8.1 fL (7.4-10.4); Platelet Count 255 thou/uL (130-400); RBC Distribution Width 11.8 % (11.5-14.5); Red Blood Cell (RBC) Count 4.02 mill/uL (4.70-6.10); White Blood Cell (WBC) Count 15.3 thou/uL (4.8-10.8)
[2020-07-08 06:36] LABS: ALT (SGPT) 42 U/L (8-55); AST (SGOT) 19 U/L (5-34); Albumin 2.8 g/dL (3.5-5.0); Alkaline Phosphatase 115 U/L (40-110); Anion Gap 16 mmol/L (10-20); BUN (Urea Nitrogen) 24 mg/dL (8.4-25.7); Bilirubin, Total 0.5 mg/dL (0.2-1.2); Calc. Creatinine Clearance 103 mL/min (70-130); Calcium 8.1 mg/dL (7.8-10.44); Carbon Dioxide 23 mmol/L (22-29); Chloride 95 mmol/L (98-107); Globulin 3.7 g/dL (2.4-3.5); Glucose 407 mg/dL (70-105); Potassium 3.8 mmol/L (3.5-5.1); Protein, Total 6.5 g/dL (6.0-8.3); Sodium 130 mmol/L (136-145)
[2020-07-08] MEDS ORDERED: Gabapentin 300 MG CAP PO SCH (08:39)
[2020-07-08] MEDS ORDERED: Insulin Glargine 70 UNITS in Pre-Filled Syringe 1 EACH SC SCH (09:00)
[2020-07-08] MEDS: Benzonatate 100 MG CAP PO SCH ×3 (09:19→21:17)
[2020-07-08] MEDS: Dexamethasone 4 MG TAB PO SCH (09:19)
[2020-07-08] MEDS: Lisinopril/Hydrochlorothiazide 20/25 mg Tablet PO SCH (09:19)
[2020-07-08] MEDS: Azithromycin 250 MG TAB PO SCH (09:19)
[2020-07-08] MEDS: guaiFENesin ER 600 MG TAB PO SCH ×2 (09:20→21:17)
[2020-07-08] MEDS: Enoxaparin Sodium 40 MG/0.4 ML SYRINGE SC SCH (09:21)
[2020-07-08] MEDS: cefTRIAXone\\ROCEPHIN 1 GM in Sodium Chloride 0.9% 100 ML IVPB SCH (09:54)
--- NOTE | 2020-07-08 14:40 | RAD ---
Chest one view HISTORY: COVID pneumonia. Follow-up. COMPARISON: 07/03/2020. FINDINGS: Cardiac silhouette is magnified by projection and partially obscured by increasingly dense bilateral infiltrates scattered throughout each lung. Shallow inspiration accentuates pulmonary markings. Vasculature engorged. No evidence of pneumothorax. IMPRESSION : Radiographic worsening of bilateral infiltrates, consistent with COVID pneumonia.
--- NOTE | 2020-07-08 16:57 | EKG ---
Test Reason : Blood Pressure : / mmHG Vent. Rate : 137 BPM Atrial Rate : 137 BPM P-R Int : 134 ms QRS Dur : 090 ms QT Int : 280 ms P-R-T Axes : 041 -48 064 degrees QTc Int : 422 ms Sinus tachycardia Left anterior fascicular block Abnormal ECG Confirmed by MAHENDRA COLLINS ([id number]), make up editor YOU CLARK ([id number]) on 07/08/2020 4:56:41 PM Referred By: Confirmed By:MAHENDRA Fonseca
[2020-07-09] MEDS ORDERED: Benzonatate 100 MG CAP PO SCH (03:45)
[2020-07-09] MEDS ORDERED: hydrOXYzine 10 MG TAB PO SCH ×2 (03:45→09:33)
[2020-07-09] MEDS ORDERED: Insulin Glargine 80 UNITS in Pre-Filled Syringe 1 EACH SC SCH (05:44)
[2020-07-09] MEDS: Mometasone 100 MCG/Formoterol 5 MCG 120 PUFF INHALER INH SCH ×2 (05:45→18:06)
[2020-07-09] MEDS: Prochlorperazine Maleate 5 MG TAB PO SCH ×5 (05:45→23:25)
[2020-07-09] MEDS: HumaLOG 300 UNITS/3 ML VIAL SC PRN ×4 (05:45→21:31)
--- NOTE | 2020-07-09 05:52 | PDOC.FM ---
- Subjective Subjective: Patient did not sleep much last night due to coughing. Reports his hiccups are much better. Has been trying to sleep on his stomach. Reports that he has had some issues with urinary retention, and will have the urge to urinate but not be able to go. - Objective Vital Signs & Weight: Vital Signs (12 hours) Temp Pulse Resp BP Pulse Ox 07/09/20 03:43 98.1 F 92 42 H 125/80 94 L 07/08/20 23:45 98.2 F 88 40 H 161/98 H 94 L 07/08/20 19:41 97.6 F 90 42 H 147/88 H 94 L Weight Admit Weight 104.009 kg Weight 104 kg I&O: 07/07/20 07/08/20 07/09/20 06:59 06:59 06:59 Intake Total 500 1200 1240 Output Total 650 1700 1750 Balance -150 -500 -510 Result Diagrams: 07/09/20 05:41 07/09/20 05:41 Phys Exam - Physical Examination Constitutional: NAD HEENT: moist MMs, sclera anicteric Neck: supple, full ROM shallow breathing, tachypnea, coarse breath sounds throughout Cardiovascular: RRR, no significant murmur Gastrointestinal: soft, no distention Musculoskeletal: no edema Neurological: non-focal, moves all 4 limbs Psychiatric: normal affect Skin: no rash Dx/Plan (1) Acute respiratory failure with hypoxia Code(s): J96.01 - ACUTE RESPIRATORY FAILURE WITH HYPOXIA Status: Acute (2) COVID-19 Code(s): U07.1 - COVID-19 Status: Acute (3) Diabetes Code(s): E11.9 - TYPE 2 DIABETES MELLITUS WITHOUT COMPLICATIONS Status: Acute (4) Hypertension Code(s): I10 - ESSENTIAL (PRIMARY) HYPERTENSION Status: Acute - Plan Plan: #Acute Hypoxic respiratory failure 2/2 COVID PNA -Sxs started 06/26, COVID+ on 06/28 -Reports improved COVID symptoms and then worsening, suspected possible bacterial super-infection -Required increasing HFNC to 60L @ 73% (does well when proned); will continue to wean as possible -Controlling hiccups appears to help with respiratory function -CTA neg for PE, but diffuse b/l ground glass opacities -CXR 1/2 demonstrates worsening COVID pna and vascular congestion -Given vanc & cefepime in ER, continued rocephin (07/04-07/08) and azithro (07/04- 07/08) as procal positive -procal 2.42>0.35>0.27>1.1, will re-evaluate in the am for need for further abx -Continue Decadron, + protonix for GI support -S/P convalescent plasma -No remdesivir due to kidney function -Admitted to medical, monitor #Hyponatremia, improved -2/2 WYATT vs. CKD -128 >132>135>130>132, no changes in mentation -could be 2/2 renal injury, transient SIADH from acute process #Intractable hiccups -Continue michi gabapentin -Compazine michi and this appears to help #WYATT on CKD, likely resolved -baseline unknown but pt denies h/o this; reports decreased PO intake over the last several days due to coughing -Cr 3.11, GFR 21 > Cr 1.03, GFR 76 -Hold metformin -urine studies demonstrate an intrinsic disease process -maintenance fluids, will wean today as patient increases po intake #Hypokalemia -potassium 3.3 -will replete and recheck #Anion gap metabolic acidosis, resolved -gap 23>10 -elevated lactic acid 3.4>1.9 -will continue to monitor with fluid resuscitation and glucose management #HTN -will restart lisinopril/HCTZ #DM2 -A1C 10.6 -hold metformin due to WYATT/CKD; reports he takes trulicity weekly, "maximum dose"; will med-rec -sliding scale, will increase lantus to 80u + 3u humalog TID this am and titrate accordingly pcp: ana admit: medical/inpt dvt ppx: 40 lovenox daily dispo: respiratory support and DM management Addendum - Attending - Attending Attestation Date/Time: 07/09/20 7486 I personally evaluated the patient and discussed the management with Dr. Cavazos. I agree with the History, Examination, Assessment and Plan documented above with any addition or exceptions noted below. Patient overall stable. CXR showed worsening of infiltrates related to COVID, this is likely why he is not making much progress. Continues on HFNC. Continues on steroids, has completed Remdesevir and plasma. Continue insulin augmentation for his uncontrolled DM that is made worse by steroid use.
[2020-07-09 06:24] LABS: #Basophils 0.1 thou/uL (0.0-0.2); #Eosinphils 0.1 thou/uL (0.0-0.7); #Monocytes 0.6 thou/uL (0.11-0.59); %Basophils 0.4 % (0.0-1.0); %Eosinophils 0.3 % (0.0-10.0); %Lymphocytes 6.4 % (21.0-51.0); %Monocytes 4.1 % (0.0-10.0); %Neutrophils 88.8 % (42.0-75.0); Hemoglobin 12.6 g/dL (14.0-18.0); Mean Corpuscular HGB CONC 31.5 g/dL (32.0-36.0); Mean Corpuscular Hemoglobin 28.7 pg (27.0-31.0); Mean Corpuscular Volume 91.3 fL (78.0-98.0); Mean Platelet Volume 8.2 fL (7.4-10.4); Platelet Count 372 thou/uL (130-400); RBC Distribution Width 12.2 % (11.5-14.5); White Blood Cell (WBC) Count 15.7 thou/uL (4.8-10.8)
[2020-07-09 06:51] LABS: ALT (SGPT) 32 U/L (8-55); AST (SGOT) 14 U/L (5-34); Alkaline Phosphatase 116 U/L (40-110); Anion Gap 15 mmol/L (10-20); BUN (Urea Nitrogen) 23 mg/dL (8.4-25.7); Bilirubin, Total 0.4 mg/dL (0.2-1.2); Calc. Creatinine Clearance 123 mL/min (70-130); Calcium 8.5 mg/dL (7.8-10.44); Carbon Dioxide 26 mmol/L (22-29); Chloride 94 mmol/L (98-107); Globulin 4.1 g/dL (2.4-3.5); Glucose 197 mg/dL (70-105); Potassium 3.3 mmol/L (3.5-5.1); Protein, Total 7.1 g/dL (6.0-8.3); Sodium 132 mmol/L (136-145)
[2020-07-09] MEDS ORDERED: Furosemide 20 MG/2 ML VIAL SLOW IVP SCH (09:15)
[2020-07-09] MEDS: Tamsulosin HCl 0.4 MG CAP PO SCH (09:31)
[2020-07-09] MEDS: Dexamethasone 4 MG TAB PO SCH (09:31)
[2020-07-09] MEDS: Benzonatate 100 MG CAP PO SCH ×3 (09:31→21:32)
[2020-07-09] MEDS: Lisinopril/Hydrochlorothiazide 20/25 mg Tablet PO SCH (09:31)
[2020-07-09] MEDS: guaiFENesin ER 600 MG TAB PO SCH ×2 (09:31→21:43)
[2020-07-09] MEDS: HumaLOG 300 UNITS/3 ML VIAL SC SCH ×3 (09:32→16:55)
[2020-07-09] MEDS: Enoxaparin Sodium 40 MG/0.4 ML SYRINGE SC SCH (09:33)
[2020-07-09] MEDS: Potassium Chloride 20 MEQ TAB PO SCH ×2 (09:33→15:49)
[2020-07-09] MEDS ORDERED: Potassium Bicarbonate/Cit Ac 20 MEQ TAB PO SCH (16:15)
[2020-07-09] MEDS ORDERED: guaiFENesin/DM ER PO SCH ×2 (21:30→22:00)
[2020-07-10] MEDS: Mometasone 100 MCG/Formoterol 5 MCG 120 PUFF INHALER INH SCH ×2 (05:10→16:56)
[2020-07-10] MEDS: Acetaminophen 325 MG TAB PO PRN ×2 (05:10→08:16)
[2020-07-10] MEDS: Prochlorperazine Maleate 5 MG TAB PO SCH ×3 (05:10→16:58)
[2020-07-10] MEDS: HumaLOG 300 UNITS/3 ML VIAL SC PRN ×4 (05:11→21:32)
--- NOTE | 2020-07-10 05:26 | PDOC.FM ---
- Subjective Subjective: Patient reports his breathing is better this morning and is no longer having urinary hesitancy. Continues to have episodes of anxiety. - Objective Vital Signs & Weight: Vital Signs (12 hours) Temp Pulse Resp BP Pulse Ox 07/10/20 03:39 97.9 F 93 44 H 129/86 95 07/09/20 23:32 97.9 F 99 40 H 129/86 95 07/09/20 19:41 97.5 F L 107 H 42 H 125/76 96 Weight Admit Weight 104.009 kg Weight 104 kg I&O: 07/08/20 07/09/20 07/10/20 06:59 06:59 06:59 Intake Total 1200 2450 2480 Output Total 1700 3200 3225 Balance -003 -136 -713 Result Diagrams: 07/10/20 06:38 07/10/20 14:25 Phys Exam - Physical Examination Constitutional: NAD HEENT: moist MMs, sclera anicteric Neck: supple, full ROM Respiratory: no wheezing, no rales shallow breathing Cardiovascular: RRR, no significant murmur Gastrointestinal: soft, non-tender Musculoskeletal: no edema Neurological: non-focal, moves all 4 limbs Psychiatric: normal affect Skin: no rash Dx/Plan (1) Acute respiratory failure with hypoxia Code(s): J96.01 - ACUTE RESPIRATORY FAILURE WITH HYPOXIA Status: Acute (2) COVID-19 Code(s): U07.1 - COVID-19 Status: Acute (3) Diabetes Code(s): E11.9 - TYPE 2 DIABETES MELLITUS WITHOUT COMPLICATIONS Status: Acute (4) Hypertension Code(s): I10 - ESSENTIAL (PRIMARY) HYPERTENSION Status: Acute - Plan Plan: #Acute Hypoxic respiratory failure 2/2 COVID PNA -Sxs started 06/26, COVID+ on 06/28 -Reports improved COVID symptoms and then worsening, suspected possible bacterial super-infection -Able to decrease HFNC to 55L @ 70% (does well when proned); will continue to wean as possible -Controlling hiccups appears to help with respiratory function -CTA neg for PE, but diffuse b/l ground glass opacities -CXR 07/08 demonstrates worsening COVID pna and vascular congestion, added one dose 20mg lasix IV 07/09 -Given vanc & cefepime in ER, continued rocephin (07/04-07/08) and azithro (07/04- 07/08) as procal positive -procal 2.42>0.35>0.27>1.1>0.63, as procal is downtrending will hold off on additional abx at this time -Continue Decadron, + protonix for GI support -S/P convalescent plasma -No remdesivir due to kidney function -Admitted to medical, monitor #Hyponatremia, improved -2/2 WYATT vs. CKD -128 >133, no changes in mentation -could be 2/2 renal injury, transient SIADH from acute process #Intractable hiccups -Continue michi gabapentin -Compazine michi and this appears to help #WYATT on CKD, likely resolved -baseline unknown but pt denies h/o this; reports decreased PO intake over the last several days due to coughing -Cr 3.11, GFR 21 > Cr 1.22, GFR 62 -Hold metformin -urine studies demonstrate an intrinsic disease process -maintenance fluids, will wean today as patient increases po intake #Hypokalemia -potassium 3.3>3.0; patient refused potassium yesterday -will replete and recheck #Anion gap metabolic acidosis, resolved -gap 23>10 -elevated lactic acid 3.4>1.9 -will continue to monitor with fluid resuscitation and glucose management #HTN -continue lisinopril/HCTZ #DM2 -A1C 10.6 -hold metformin due to WYATT/CKD; reports he takes trulicity weekly, "maximum dose" -sliding scale, will increase lantus to 80u + 6u humalog TID this am and titrate accordingly pcp: ana admit: medical/inpt dvt ppx: 40 lovenox daily dispo: respiratory support and DM management Addendum - Attending - Attending Attestation Date/Time: 07/10/20 0751 I personally evaluated the patient and discussed the management with Dr. Louis I agree with the History, Examination, Assessment and Plan documented above with any addition or exceptions noted below. 54 yo male admitted for acute respiratory failure due to COVID PNA Slowly improving. O2 sats continue to improve with prone positioning and O2 support. Continue to trend Na/K. Repeat ddimer in am. Repeat procal in AM. If continues to be less than 1 stop tr ending. No need to add back antibx. ABrayMD
[2020-07-10] MEDS ORDERED: hydrOXYzine 10 MG TAB PO SCH (05:30)
[2020-07-10 07:11] LABS: #Basophils 0.1 thou/uL (0.0-0.2); #Eosinphils 0.2 thou/uL (0.0-0.7); #Lymphocytes 1.4 thou/uL (1.20-3.40); #Monocytes 0.7 thou/uL (0.11-0.59); %Basophils 0.3 % (0.0-1.0); %Eosinophils 1.2 % (0.0-10.0); %Lymphocytes 9.5 % (21.0-51.0); Hemoglobin 12.6 g/dL (14.0-18.0); Mean Corpuscular Hemoglobin 29.3 pg (27.0-31.0); Mean Corpuscular Volume 91.7 fL (78.0-98.0); Mean Platelet Volume 7.8 fL (7.4-10.4); Platelet Count 440 thou/uL (130-400); RBC Distribution Width 12.1 % (11.5-14.5); White Blood Cell (WBC) Count 14.3 thou/uL (4.8-10.8)
[2020-07-10 07:23] LABS: ALT (SGPT) 29 U/L (8-55); AST (SGOT) 15 U/L (5-34); Alkaline Phosphatase 88 U/L (40-110); Anion Gap 15 mmol/L (10-20); BUN (Urea Nitrogen) 25 mg/dL (8.4-25.7); Bilirubin, Total 0.5 mg/dL (0.2-1.2); Calc. Creatinine Clearance 104 mL/min (70-130); Calcium 8.4 mg/dL (7.8-10.44); Carbon Dioxide 29 mmol/L (22-29); Chloride 92 mmol/L (98-107); Globulin 3.7 g/dL (2.4-3.5); Glucose 138 mg/dL (70-105); Protein, Total 6.7 g/dL (6.0-8.3); Sodium 133 mmol/L (136-145)
[2020-07-10] MEDS: Tamsulosin HCl 0.4 MG CAP PO SCH (08:17)
[2020-07-10] MEDS: Lisinopril/Hydrochlorothiazide 20/25 mg Tablet PO SCH (08:17)
[2020-07-10] MEDS: Dexamethasone 4 MG TAB PO SCH (08:17)
[2020-07-10] MEDS: Benzonatate 100 MG CAP PO SCH ×3 (08:17→21:30)
[2020-07-10] MEDS: guaiFENesin/DM ER PO SCH ×2 (08:17→21:31)
[2020-07-10] MEDS: HumaLOG 300 UNITS/3 ML VIAL SC SCH ×3 (08:18→16:54)
[2020-07-10] MEDS: Enoxaparin Sodium 40 MG/0.4 ML SYRINGE SC SCH (08:18)
[2020-07-10] MEDS: Insulin Glargine 40 UNITS in Pre-Filled Syringe 1 EACH SC SCH (08:19)
--- NOTE | 2020-07-10 08:54 | RAD ---
Chest one view HISTORY: Pneumonia. Follow-up. COMPARISON: 07/08/2020. FINDINGS: Cardiac silhouette is magnified by projection. Partially obscured by dense bilateral airspa ce disease. Shallow inspiration accentuates pulmonary markings. Vasculature is engorged. No evidence of pneumothorax. IMPRESSION : Dense bilateral infiltrates and other findings are stable.
[2020-07-10] MEDS ORDERED: Potassium Chloride 20 MEQ TAB PO SCH (09:15)
[2020-07-10] MEDS ORDERED: hydrOXYzine 25 MG TAB PO SCH (09:15)
[2020-07-10 14:52] LABS: Phosphorus 4.6 mg/dL (2.3-4.7)
[2020-07-10 14:54] LABS: Anion Gap 16 mmol/L (10-20); BUN (Urea Nitrogen) 28 mg/dL (8.4-25.7); Calc. Creatinine Clearance 96 mL/min (70-130); Calcium 8.5 mg/dL (7.8-10.44); Carbon Dioxide 27 mmol/L (22-29); Chloride 95 mmol/L (98-107); Glucose 230 mg/dL (70-105); Magnesium 1.5 mg/dL (1.6-2.6); Potassium 3.9 mmol/L (3.5-5.1); Sodium 134 mmol/L (136-145)
[2020-07-10] MEDS: Melatonin 3 MG TAB PO PRN (21:30)
[2020-07-10] MEDS: Magnesium Oxide 400 MG TAB PO SCH (21:30)
[2020-07-11] MEDS: Prochlorperazine Maleate 5 MG TAB PO SCH ×4 (00:11→17:39)
[2020-07-11] MEDS: Acetaminophen 325 MG TAB PO PRN ×4 (02:23→21:42)
[2020-07-11] MEDS: Mometasone 100 MCG/Formoterol 5 MCG 120 PUFF INHALER INH SCH ×2 (06:13→17:39)
[2020-07-11] MEDS: HumaLOG 300 UNITS/3 ML VIAL SC PRN ×2 (06:14→16:54)
[2020-07-11 07:02] LABS: Anion Gap 16 mmol/L (10-20); BUN (Urea Nitrogen) 27 mg/dL (8.4-25.7); Calc. Creatinine Clearance 113 mL/min (70-130); Calcium 8.7 mg/dL (7.8-10.44); Carbon Dioxide 27 mmol/L (22-29); Chloride 95 mmol/L (98-107); Glucose 172 mg/dL (70-105); Magnesium 1.5 mg/dL (1.6-2.6); Potassium 3.6 mmol/L (3.5-5.1); Sodium 134 mmol/L (136-145)
[2020-07-11] MEDS: Dexamethasone 4 MG TAB PO SCH (08:12)
[2020-07-11] MEDS: Tamsulosin HCl 0.4 MG CAP PO SCH (08:12)
[2020-07-11] MEDS: Lisinopril/Hydrochlorothiazide 20/25 mg Tablet PO SCH (08:12)
[2020-07-11] MEDS: Magnesium Oxide 400 MG TAB PO SCH (08:12)
[2020-07-11] MEDS: Benzonatate 100 MG CAP PO SCH ×3 (08:12→21:42)
[2020-07-11] MEDS: guaiFENesin/DM ER PO SCH ×2 (08:13→21:42)
[2020-07-11] MEDS: HumaLOG 300 UNITS/3 ML VIAL SC SCH ×3 (08:15→16:55)
[2020-07-11] MEDS: Insulin Glargine 40 UNITS in Pre-Filled Syringe 1 EACH SC SCH ×2 (09:13→09:14)
--- NOTE | 2020-07-11 09:31 | PDOC.FM ---
- Subjective Subjective: Patient doing well this morning. Reports his breathing is improved from yesterday. His coughing and hiccups have improved. - Objective Vital Signs & Weight: Vital Signs (12 hours) Temp Pulse Resp BP Pulse Ox 07/11/20 08:12 89 07/11/20 08:00 97.8 F 64 20 132/81 100 07/11/20 03:39 97.5 F L 89 44 H 136/87 93 L 07/11/20 00:20 97.5 F L 85 44 H 131/81 94 L Weight Admit Weight 104.009 kg Weight 104 kg I&O: 07/10/20 07/11/20 07/12/20 06:59 06:59 06:59 Intake Total 2480 750 Output Total 3225 2450 Balance -745 -1700 Result Diagrams: 07/10/20 06:38 07/11/20 06:05 Phys Exam - Physical Examination Constitutional: NAD HEENT: moist MMs, sclera anicteric Neck: supple, full ROM shallow breathing Cardiovascular: RRR, no significant murmur Gastrointestinal: soft, non-tender Musculoskeletal: no edema, pulses present Neurological: non-focal, moves all 4 limbs Psychiatric: normal affect Skin: no rash Dx/Plan (1) Acute respiratory failure with hypoxia Code(s): J96.01 - ACUTE RESPIRATORY FAILURE WITH HYPOXIA Status: Acute (2) COVID-19 Code(s): U07.1 - COVID-19 Status: Acute (3) Diabetes Code(s): E11.9 - TYPE 2 DIABETES MELLITUS WITHOUT COMPLICATIONS Status: Acute (4) Hypertension Code(s): I10 - ESSENTIAL (PRIMARY) HYPERTENSION Status: Acute - Plan Plan: #Acute Hypoxic respiratory failure 2/2 COVID PNA -Sxs started 06/26, COVID+ on 06/28 -Reports improved COVID symptoms and then worsening, suspected possible bacterial super-infection -Able to decrease HFNC to 50L @ 50%; will continue to wean as possible -Controlling hiccups appears to help with respiratory function -CTA neg for PE, but diffuse b/l ground glass opacities -CXR 07/08 demonstrates worsening COVID pna and vascular congestion, added one dose 20mg lasix IV 07/09 -Given vanc & cefepime in ER, continued rocephin (07/04-07/08) and azithro (07/04- 07/08) as procal positive -procal 2.42>0.35>0.27>1.1>0.63>0.3, as procal is downtrending will hold off on additional abx at this time -Continue Decadron, + protonix for GI support -S/P convalescent plasma -No remdesivir due to kidney function -Admitted to medical, monitor #Hyponatremia, improved -2/2 WYATT vs. CKD -128 >134, no changes in mentation -could be 2/2 renal injury, transient SIADH from acute process #Intractable hiccups -Continue michi gabapentin -Compazine michi and this appears to help #WYATT on CKD, likely resolved -baseline unknown but pt denies h/o this; reports decreased PO intake over the last several days due to coughing -Cr 3.11, GFR 21 > Cr 1.12, GFR 69 -Hold metformin -urine studies demonstrate an intrinsic disease process -maintenance fluids, will wean today as patient increases po intake #Hypokalemia, resolved -potassium 3.3>3.0; patient refused potassium yesterday -will replete and recheck #Hypomagnesemia -mag 1.5, will replete and monitor #Anion gap metabolic acidosis, resolved -gap 23>10 -elevated lactic acid 3.4>1.9 -will continue to monitor with fluid resuscitation and glucose management #HTN -continue lisinopril/HCTZ #DM2 -A1C 10.6 -hold metformin due to WYATT/CKD; reports he takes trulicity weekly, "maximum dose" -sliding scale, will increase lantus to 80u + 8u humalog TID this am and titrate accordingly pcp: ana admit: medical/inpt dvt ppx: 40 lovenox daily dispo: respiratory support and DM management Addendum - Attending - Attending Attestation Date/Time: 07/11/20 1212 I personally evaluated the patient and discussed the management with Dr. Cavazos. I agree with the History, Examination, Assessment and Plan documented above with any addition or exceptions noted below. Patient reports feeling improved today. He is actually eager to get out of bed and to chair, which he did during my encounter. Reports shortness of breath with exertion, but improved. His sats are improved on diminished HFNC settings. Continue steroids and wean HFNC as tolerated. He has completed other therapies for COVID. Increase ambulation.
[2020-07-11] MEDS ORDERED: Magnesium 2 GM/50 ML 2 GM in Premix Bag 1 BAG IVPB SCH (09:45)
[2020-07-11] MEDS: Enoxaparin Sodium 40 MG/0.4 ML SYRINGE SC SCH (10:13)
[2020-07-11] MEDS ORDERED: hydrOXYzine 25 MG TAB PO SCH ×2 (15:02→16:45)
[2020-07-11] MEDS: Melatonin 3 MG TAB PO PRN (21:42)
[2020-07-12] MEDS: Prochlorperazine Maleate 5 MG TAB PO SCH ×5 (01:20→23:43)
[2020-07-12] MEDS: Acetaminophen 325 MG TAB PO PRN (05:11)
[2020-07-12] MEDS: Mometasone 100 MCG/Formoterol 5 MCG 120 PUFF INHALER INH SCH ×2 (05:53→18:25)
--- NOTE | 2020-07-12 06:17 | PDOC.FM ---
- Objective Vital Signs & Weight: Vital Signs (12 hours) Temp Pulse Resp BP Pulse Ox 07/11/20 20:00 97.9 F 75 20 120/72 98 Weight Admit Weight 104.009 kg Weight 104 kg I&O: 07/10/20 07/11/20 07/12/20 06:59 06:59 06:59 Intake Total 2480 750 Output Total 3225 2450 1250 Balance -015 -6096 -1250 Result Diagrams: 07/10/20 06:38 07/11/20 06:05 Dx/Plan (1) Acute respiratory failure with hypoxia Code(s): J96.01 - ACUTE RESPIRATORY FAILURE WITH HYPOXIA Status: Acute (2) COVID-19 Code(s): U07.1 - COVID-19 Status: Acute (3) Diabetes Code(s): E11.9 - TYPE 2 DIABETES MELLITUS WITHOUT COMPLICATIONS Status: Acute (4) Hypertension Code(s): I10 - ESSENTIAL (PRIMARY) HYPERTENSION Status: Acute - Plan Plan: #Acute Hypoxic respiratory failure 2/2 COVID PNA -Sxs started 06/26, COVID+ on 06/28 -Reports improved COVID symptoms and then worsening, suspected possible bacterial super-infection -Able to decrease HFNC to 45L @ 47%; will continue to wean as possible -Controlling hiccups appears to help with respiratory function -CTA neg for PE, but diffuse b/l ground glass opacities -CXR 07/08 demonstrates worsening COVID pna and vascular congestion, added one dose 20mg lasix IV 07/09 -Given vanc & cefepime in ER, continued rocephin (07/04-07/08) and azithro (07/04- 07/08) as procal positive -procal 2.42>0.35>0.27>1.1>0.63>0.3, as procal is downtrending will hold off on additional abx at this time -Continue Decadron, + protonix for GI support -S/P convalescent plasma -No remdesivir due to kidney function -Admitted to medical, monitor #Hyponatremia, improved -2/2 WYATT vs. CKD -128 >134, no changes in mentation -could be 2/2 renal injury, transient SIADH from acute process #Intractable hiccups -Continue michi gabapentin -Compazine michi and this appears to help #WYATT on CKD, likely resolved -baseline unknown but pt denies h/o this; reports decreased PO intake over the last several days due to coughing -Cr 3.11, GFR 21 > Cr 1.12, GFR 69 -Hold metformin -urine studies demonstrate an intrinsic disease process -maintenance fluids, will wean today as patient increases po intake #Hypokalemia, resolved -potassium 3.3>3.0; patient refused potassium yesterday -will replete and recheck #Hypomagnesemia -mag 1.5, will replete and monitor #Anion gap metabolic acidosis, resolved -gap 23>10 -elevated lactic acid 3.4>1.9 -will continue to monitor with fluid resuscitation and glucose management #HTN -continue lisinopril/HCTZ #DM2 -A1C 10.6 -hold metformin due to WYATT/CKD; reports he takes trulicity weekly, "maximum dose" -sliding scale, continue lantus to 80u + 8u humalog TID this am and titrate accordingly pcp: ana admit: medical/inpt dvt ppx: 40 lovenox daily dispo: respiratory support and DM management
[2020-07-12 07:04] LABS: #Eosinphils 0.2 thou/uL (0.0-0.7); #Lymphocytes 1.7 thou/uL (1.20-3.40); #Neutrophils 10.2 thou/uL (1.40-6.50); %Basophils 0.1 % (0.0-1.0); %Eosinophils 1.7 % (0.0-10.0); %Lymphocytes 13.1 % (21.0-51.0); %Monocytes 7.8 % (0.0-10.0); %Neutrophils 77.2 % (42.0-75.0); Hemoglobin 12.3 g/dL (14.0-18.0); Mean Corpuscular HGB CONC 33.1 g/dL (32.0-36.0); Mean Corpuscular Hemoglobin 30.8 pg (27.0-31.0); Platelet Count 589 thou/uL (130-400); RBC Distribution Width 12.2 % (11.5-14.5); Red Blood Cell (RBC) Count 3.99 mill/uL (4.70-6.10); White Blood Cell (WBC) Count 13.2 thou/uL (4.8-10.8)
[2020-07-12 07:26] LABS: Anion Gap 14 mmol/L (10-20); BUN (Urea Nitrogen) 21 mg/dL (8.4-25.7); Calc. Creatinine Clearance 113 mL/min (70-130); Calcium 8.4 mg/dL (7.8-10.44); Carbon Dioxide 27 mmol/L (22-29); Chloride 97 mmol/L (98-107); Glucose 191 mg/dL (70-105); Magnesium 1.7 mg/dL (1.6-2.6); Phosphorus 4.2 mg/dL (2.3-4.7); Potassium 3.6 mmol/L (3.5-5.1); Sodium 134 mmol/L (136-145)
--- NOTE | 2020-07-12 07:56 | PDOC.FM ---
- Subjective Subjective: Mr. Celaya has felt increasingly short of breath at time. Nursing staff notes this is often associated with anxiety. He reports good PO intake, normal urine output. Denies fever, chills. Is feeling well apart from dyspnea. - Objective Vital Signs & Weight: Vital Signs (12 hours) Temp Pulse Resp BP Pulse Ox 07/11/20 20:00 97.9 F 75 20 120/72 98 Weight Admit Weight 104.009 kg Weight 104 kg I&O: 07/11/20 07/12/20 07/13/20 06:59 06:59 06:59 Intake Total 750 Output Total 2450 1250 Balance -1700 -1250 Result Diagrams: 07/12/20 06:18 07/12/20 06:18 Phys Exam - Physical Examination Constitutional: NAD HEENT: moist MMs good air movement in all lung zabala, mild wheeze Cardiovascular: no significant murmur tachycardic Gastrointestinal: soft, non-tender Musculoskeletal: no edema Neurological: non-focal Psychiatric: normal affect Skin: normal turgor Dx/Plan - Plan Plan: #Acute Hypoxic respiratory failure 2/2 COVID PNA -Sxs started 06/26, COVID+ on 06/28 -Reports improved COVID symptoms and then worsening -Able to decrease HFNC to 50L @ 50%; will continue to wean as possible -Controlling hiccups appears to help with respiratory function -CTA neg for PE, but diffuse b/l ground glass opacities -CXR 07/08 demonstrates worsening COVID pna and vascular congestion, added one dose 20mg lasix IV 07/09 -Given vanc & cefepime in ER, given rocephin (07/04-07/08) and azithro (07/04- 07/08). -procal 2.42>0.35>0.27>1.1>0.63>0.3, as procal downtrended, abx discontinued -Continue Decadron, + protonix for GI support -S/P convalescent plasma, No remdesivir due to kidney function -Admitted to medical, monitor #Anxiety - attributing to intermittent tachycardia, added hydroxyzine prn, considered low dose benzo prn if not well controlled #Hyponatremia, improved -2/2 WYATT vs. CKD -128 >134, no changes in mentation -could be 2/2 renal injury, transient SIADH from acute process #Intractable hiccups -Continue michi gabapentin -Compazine michi and this appears to help #WYATT on CKD, likely resolved -baseline unknown but pt denies h/o this; reports decreased PO intake over the last several days due to coughing -Cr 3.11, GFR 21 > Cr 1.12, GFR 69 -Hold metformin -urine studies demonstrate an intrinsic disease process #Hypokalemia, resolved #Hypomagnesemia, resolved #Anion gap metabolic acidosis, resolved -gap 23>10 -elevated lactic acid 3.4>1.9 -will continue to monitor with fluid resuscitation and glucose management #HTN -continue lisinopril/HCTZ #DM2 -A1C 10.6 -hold metformin due to WYATT/CKD; reports he takes trulicity weekly, "maximum dose" -sliding scale, will increase lantus to 85u + 8u humalog TID this am and titrate accordingly pcp: ana admit: medical/inpt dvt ppx: 40 lovenox daily dispo: continue respiratory support with HFNC Addendum - Attending - Attending Attestation Date/Time: 07/12/20 9498 I personally evaluated the patient and discussed the management with Dr. Patel. I agree with the History, Examination, Assessment and Plan documented above with any addition or exceptions noted below. Patient overall stable. Continue to wean HFNC as tolerated. Increase and encourage ambulation. Glycemic control improved.
[2020-07-12] MEDS: Dexamethasone 4 MG TAB PO SCH (09:02)
[2020-07-12] MEDS: Benzonatate 100 MG CAP PO SCH ×3 (09:03→20:09)
[2020-07-12] MEDS: Tamsulosin HCl 0.4 MG CAP PO SCH (09:03)
[2020-07-12] MEDS: HumaLOG 300 UNITS/3 ML VIAL SC SCH ×3 (09:04→16:33)
[2020-07-12] MEDS: Enoxaparin Sodium 40 MG/0.4 ML SYRINGE SC SCH ×2 (09:05→18:26)
[2020-07-12] MEDS: Lisinopril/Hydrochlorothiazide 20/25 mg Tablet PO SCH (09:05)
[2020-07-12] MEDS: Insulin Glargine 40 UNITS in Pre-Filled Syringe 1 EACH SC SCH ×2 (09:05→09:08)
[2020-07-12] MEDS: hydrOXYzine 25 MG TAB PO PRN ×3 (09:07→23:43)
[2020-07-12] MEDS: guaiFENesin/DM ER PO SCH ×2 (09:10→20:09)
[2020-07-12] MEDS ORDERED: Lorazepam 0.5 MG TAB PO PRN (13:39)
[2020-07-12] MEDS: Lorazepam 0.5 MG TAB PO PRN ×2 (13:46→20:46)
[2020-07-12] MEDS: Melatonin 3 MG TAB PO PRN (20:46)
[2020-07-13] MEDS: Lorazepam 0.5 MG TAB PO PRN ×3 (03:35→20:47)
[2020-07-13] MEDS: Acetaminophen 325 MG TAB PO PRN ×2 (04:39→10:20)
[2020-07-13] MEDS: Prochlorperazine Maleate 5 MG TAB PO SCH ×4 (05:33→23:22)
[2020-07-13] MEDS: Mometasone 100 MCG/Formoterol 5 MCG 120 PUFF INHALER INH SCH ×2 (06:21→18:07)
--- NOTE | 2020-07-13 06:27 | PDOC.FM ---
- Subjective Subjective: Patient was resting comfortably, eating breakfast at the time of evaluation. Patient denied any acute overnight events, particularly with regard to chest pain, SOB or worsening anxiety or palpitations. No acute overnight events were reported by the Resident Night Team or Nursing Staff. - Objective Vital Signs & Weight: Vital Signs (12 hours) Temp Pulse Resp BP Pulse Ox 07/13/20 04:00 98.4 F 99 20 104/70 96 07/13/20 00:00 98 20 96 07/12/20 21:56 97 07/12/20 20:00 98.0 F 113 H 22 H 156/94 H 97 Weight Admit Weight 104.009 kg Weight 104 kg I&O: 07/11/20 07/12/20 07/13/20 06:59 06:59 06:59 Intake Total 750 1890 Output Total 2450 1250 2245 Balance -1700 -1250 -355 Result Diagrams: 07/12/20 06:18 07/12/20 06:18 Phys Exam - Physical Examination Constitutional: NAD HEENT: moist MMs Neck: supple, full ROM Respiratory: no wheezing, no rales, no rhonchi, clear to auscultation bilateral Cardiovascular: RRR, no significant murmur, no rub Gastrointestinal: soft, non-tender, no distention, positive bowel sounds Musculoskeletal: no edema, pulses present Neurological: moves all 4 limbs Psychiatric: normal affect Dx/Plan (1) CKD (chronic kidney disease) Code(s): N18.9 - CHRONIC KIDNEY DISEASE, UNSPECIFIED Status: Chronic (2) Acute respiratory failure with hypoxia Code(s): J96.01 - ACUTE RESPIRATORY FAILURE WITH HYPOXIA Status: Acute (3) COVID-19 Code(s): U07.1 - COVID-19 Status: Acute (4) Diabetes Code(s): E11.9 - TYPE 2 DIABETES MELLITUS WITHOUT COMPLICATIONS Status: Chronic (5) Hypertension Code(s): I10 - ESSENTIAL (PRIMARY) HYPERTENSION Status: Chronic - Plan Plan: Patient is a 54 y/o male who presented to the ER for evaluation of SOB. #Acute Hypoxic Respiratory Failure 2/2 COVID-19 PNA -Patient reports fluctuating symptoms that started on 06/26 - COVID(+) test on 06/28 -CXR: Worsening COVID PNA with vascular congestion -CTA: Negative for PE, but diffuse ground glass opacities noted -Currently on HFNC with RT to wean as tolerated - 45/45 on 07/13 -Dexamethasone 6 mg IV daily -s/p Convalescent Plasma - unable to give Remdesivir due to CKD -Lovenox 40 mg SC QAM for anticoagulation -s/p Vanc & Cefepime in ER, Ceftriaxone (07/04-07/08) and Azithromycin (07/04-07/08) -Procal: 2.42 > 0.3 - ABx were dc'd as Procal downtrended -D-Dimer: 1.93 > 6.2 on 07/11 -Anti-Factor Xa: Pending #Anxiety -Like due to SOB - manifests with intermittent tachycardia and feelings of air hunger - much improved since addition of PRN medications -Hydroxyzine PRN -Lorazepam PRN #Hyponatremia, improved -Likely 2/2 WYATT on CKD, although transient SIADH is possible -Na: 128 > 134, no changes in mentation or evidence of seizure activity -Will continue to monitor closely with AM Labs #Intractable Hiccups, improving -Gabapentin RADHA -Compazine RADHA #WYATT on CKD, likely resolved -Baseline unknown but patient denies known Hx of CKD - reports decreased PO inta ke over the last several days due to coughing -Cr: 3.11 > 1.12 -GFR: 21 > 69 -Currently holding Metformin -Urine studies demonstrate an intrinsic disease process #Hypokalemia, resolved -K: 3.0 > 3.6 #Hypomagnesemia, resolved -M.5 > 1.7 #AG Metabolic Acidosis, resolved -Gap: 23 > 10 -Lactic Acid: 3.4 > 1.9 -Will continue to monitor #HTN -Continue Lisinopril/HCTZ #DM2 -A1C: 10.6 -Currently holding Metformin due to WYATT/CKD; reports he takes trulicity weekly, "maximum dose" -Lantus 85 u SC -Humalog 8u SC TID - will increase to 10u SC PCP: Claude Code: Full Diet: Consistent Carb w/ Glucerna Shakes Activity: Ad burke VTE PPx: Lovenox 40 mg SC QAM Dispo: Patient is currently stable and admitted to the Medical Floor for ongoing treatment of AHRF due to COVID-19 PNA. Patient is currently s/p Convalescent Plasma - will continue steroids and anticoagulation as per above with possible titration based on Anti-Factor Xa Assay. Will continue to monitor patient's POC Glucose readings and adjust insulin regimen as required. Expected LOS > 48H. Addendum - Attending - Attending Attestation Date/Time: 07/13/20 6722 I personally evaluated the patient and discussed the management with Dr. Pinto. I agree with the History, Examination, Assessment and Plan documented above with any addition or exceptions noted below. Patient overall making slow improvements. His O2 status is improved on lower levels of HFNC, wean as tolerated. Continue steroids and glycemic control. Hopeful for trial of NC in the coming days.
[2020-07-13] MEDS: Dexamethasone 4 MG TAB PO SCH (09:05)
[2020-07-13] MEDS: HumaLOG 300 UNITS/3 ML VIAL SC SCH ×3 (09:06→16:30)
[2020-07-13] MEDS: Benzonatate 100 MG CAP PO SCH ×3 (09:06→20:47)
[2020-07-13] MEDS: guaiFENesin/DM ER PO SCH ×2 (09:08→20:49)
[2020-07-13] MEDS: Lisinopril/Hydrochlorothiazide 20/25 mg Tablet PO SCH (09:08)
[2020-07-13] MEDS: Tamsulosin HCl 0.4 MG CAP PO SCH (09:08)
[2020-07-13] MEDS: Insulin Glargine 40 UNITS in Pre-Filled Syringe 1 EACH SC SCH (09:09)
[2020-07-13] MEDS: Insulin Glargine 45 UNITS in Pre-Filled Syringe 1 EACH SC SCH (09:09)
[2020-07-13] MEDS: Enoxaparin Sodium 40 MG/0.4 ML SYRINGE SC SCH (09:10)
[2020-07-13] MEDS: hydrOXYzine 25 MG TAB PO PRN ×2 (18:07→23:22)
[2020-07-13] MEDS: Melatonin 3 MG TAB PO PRN (20:47)
[2020-07-13] MEDS: HumaLOG 300 UNITS/3 ML VIAL SC PRN (20:48)
[2020-07-14] MEDS: Lorazepam 0.5 MG TAB PO PRN ×4 (03:20→20:04)
[2020-07-14] MEDS: Acetaminophen 325 MG TAB PO PRN ×2 (03:30→15:12)
[2020-07-14] MEDS: Prochlorperazine Maleate 5 MG TAB PO SCH ×4 (05:42→23:35)
[2020-07-14] MEDS: hydrOXYzine 25 MG TAB PO PRN ×3 (06:00→17:41)
--- NOTE | 2020-07-14 06:29 | PDOC.FM ---
- Subjective Subjective: Patient was resting in the prone position at the time of evaluation. Patient continued to endorse SOB with movement, but stated that he was otherwise comfortable. No acute overnight events were reported by the Resident Night Team or Nursing Staff. - Objective Vital Signs & Weight: Vital Signs (12 hours) Temp Pulse Resp BP Pulse Ox 07/14/20 04:00 92 20 94 L 07/14/20 00:00 88 20 95 07/13/20 20:26 94 L 07/13/20 20:16 98.5 F 91 17 135/83 94 L Weight Admit Weight 104.009 kg Weight 104 kg I&O: 07/12/20 07/13/20 07/14/20 06:59 06:59 06:59 Intake Total 1890 650 Output Total 1250 3995 1100 Balance -1250 -355 -450 Result Diagrams: 07/12/20 06:18 07/12/20 06:18 Phys Exam - Physical Examination Constitutional: NAD Neck: supple, full ROM Respiratory: no wheezing, no rales, no rhonchi, clear to auscultation bilateral Cardiovascular: RRR, no significant murmur, no rub Gastrointestinal: soft, non-tender, positive bowel sounds Musculoskeletal: no edema, pulses present Neurological: moves all 4 limbs Psychiatric: normal affect Dx/Plan (1) CKD (chronic kidney disease) Code(s): N18.9 - CHRONIC KIDNEY DISEASE, UNSPECIFIED Status: Chronic (2) Acute respiratory failure with hypoxia Code(s): J96.01 - ACUTE RESPIRATORY FAILURE WITH HYPOXIA Status: Acute (3) COVID-19 Code(s): U07.1 - COVID-19 Status: Acute (4) Diabetes Code(s): E11.9 - TYPE 2 DIABETES MELLITUS WITHOUT COMPLICATIONS Status: Chronic (5) Hypertension Code(s): I10 - ESSENTIAL (PRIMARY) HYPERTENSION Status: Chronic - Plan Plan: Patient is a 54 y/o male who presented to the ER for evaluation of SOB. #Acute Hypoxic Respiratory Failure 2/2 COVID-19 PNA -Patient reports fluctuating symptoms that started on 06/26 - COVID(+) test on 06/28 -CXR: Worsening COVID PNA with vascular congestion -CTA: Negative for PE, but diffuse ground glass opacities noted -Currently on 4L O2 via NC after down-titration from HFNC - will continue to wean as tolerated and encourage physical activity -Dexamethasone 6 mg IV daily -s/p Convalescent Plasma - unable to give Remdesivir due to WYATT/CKD -Will increase anticoagulation to Lovenox 40 mg SC BID based on Anti-Factor Xa and improved renal function -s/p Vanc & Cefepime in ER, Ceftriaxone (07/04-07/08) and Azithromycin (07/04-07/08) -Procal: 2.42 > 0.3 - ABx were dc'd as Procal downtrended -D-Dimer: 1.93 > 6.2 on 07/11 -Anti-Factor Xa: <0.1 #Anxiety -Like due to SOB - manifests with intermittent tachycardia and feelings of air hunger - much improved since addition of PRN medications -Hydroxyzine PRN -Lorazepam PRN #Hyponatremia, improved -Likely 2/2 WYATT on CKD, although transient SIADH is possible -Na: 128 > 134, no changes in mentation or evidence of seizure activity -Will continue to monitor closely with AM Labs #Intractable Hiccups, improving -Gabapentin RADHA -Compazine RADHA #WYATT on CKD, likely resolved -Baseline unknown but patient denies known Hx of CKD - reports decreased PO intake over the last several days due to coughing -Cr: 3.11 > 1.12 -GFR: 21 > 69 -Currently holding Metformin -Urine studies demonstrate an intrinsic disease process #Hypokalemia, resolved -K: 3.0 > 3.6 #Hypomagnesemia, resolved -M.5 > 1.7 #AG Metabolic Acidosis, resolved -Gap: 23 > 10 -Lactic Acid: 3.4 > 1.9 -Will continue to monitor #HTN -BP currently at goal -Continue Lisinopril/HCTZ #DM2 -A1C: 10.6 -Currently holding Metformin due to WYATT/CKD; reports he takes trulicity weekly, "maximum dose" -Lantus 85 u SC -Humalog 10u SC TID - will increase to 12u SC -Steroids are likely contributing to elevated POC Glucose readings -Will DC with weight-based long-acting insulin and encourage close follow-up with PCP in order to titrate appropriately following dc of steroids PCP: Claude Code: Full Diet: Consistent Carb w/ Glucerna Shakes Activity: Ad burke VTE PPx: Lovenox 40 mg SC BID Dispo: Patient is currently stable and admitted to the Medical Floor for ongoing treatment of AHRF due to COVID-19 PNA. Patient is currently s/p Convalescent Plasma - will continue steroids and anticoagulation as per above. Will continue to monitor patient's POC Glucose readings and continue to adjust insulin regimen as required. As patient's respiratory status is improving, will consult Case Management for assistance with home O2 which may aid in DC. Expected LOS < 48H. Addendum - Attending - Attending Attestation Date/Time: 07/14/20 1102 I personally evaluated the patient and discussed the management with Dr. Pinot. I agree with the History, Examination, Assessment and Plan documented above with any addition or exceptions noted below. Patient improved. He is now having good sats on NC. Continue to wean as tolerated. Continue steroids. Continue glycemic control. If doing well today and tomorrow, hopefully nearing discharge with likely outpatient O2 therapy.
[2020-07-14] MEDS: Mometasone 100 MCG/Formoterol 5 MCG 120 PUFF INHALER INH SCH ×2 (06:35→18:13)
[2020-07-14] MEDS: Dexamethasone 4 MG TAB PO SCH (08:09)
[2020-07-14] MEDS: Lisinopril/Hydrochlorothiazide 20/25 mg Tablet PO SCH (08:09)
[2020-07-14] MEDS: Benzonatate 100 MG CAP PO SCH ×3 (08:09→20:04)
[2020-07-14] MEDS: Tamsulosin HCl 0.4 MG CAP PO SCH (08:09)
[2020-07-14] MEDS: HumaLOG 300 UNITS/3 ML VIAL SC SCH ×3 (08:11→17:31)
[2020-07-14] MEDS: Enoxaparin Sodium 40 MG/0.4 ML SYRINGE SC SCH ×2 (08:28→20:03)
[2020-07-14] MEDS: Insulin Glargine 40 UNITS in Pre-Filled Syringe 1 EACH SC SCH (09:33)
[2020-07-14] MEDS: Insulin Glargine 45 UNITS in Pre-Filled Syringe 1 EACH SC SCH (09:33)
[2020-07-14] MEDS: guaiFENesin/DM ER PO SCH ×2 (09:33→20:04)
[2020-07-14] MEDS: Melatonin 3 MG TAB PO PRN (20:04)
[2020-07-14] MEDS: HumaLOG 300 UNITS/3 ML VIAL SC PRN (20:05)
[2020-07-14] MEDS ORDERED: Lorazepam 1 MG TAB PO SCH (23:30)
[2020-07-15] MEDS: hydrOXYzine 25 MG TAB PO PRN ×2 (02:15→08:55)
[2020-07-15] MEDS ORDERED: Melatonin 3 MG TAB PO PRN (02:53)
[2020-07-15] MEDS ORDERED: hydrOXYzine 25 MG TAB PO SCH ×3 (03:00→11:00)
[2020-07-15] MEDS: Mometasone 100 MCG/Formoterol 5 MCG 120 PUFF INHALER INH SCH ×2 (05:09→18:30)
[2020-07-15] MEDS: Prochlorperazine Maleate 5 MG TAB PO SCH ×4 (05:09→23:54)
[2020-07-15] MEDS: Acetaminophen 325 MG TAB PO PRN ×4 (05:10→23:50)
--- NOTE | 2020-07-15 06:07 | PDOC.FM ---
- Subjective Subjective: Upon arrival to the room, patient is sitting up in bed repeating "Don't leave me alone" and appears anxious. He reports increased anxiety and says he cannot get in a comfortable position. He was encouraged to lay supine due to improved O2 saturation but will only remain in place for ~30 seconds before saying it is too uncomfortable. O2 sats were initially 75% on 4L with tachypnea. Breathing techniques were practiced with the patient and saturations improved to 93% on 4L. Tachypnea resolved. Patient was also tachycardic with HR 140s that improved to 100s. Patient reported improvement of anxiety and appeared more calm. + SOB during anxiety episode that resolved. Patient agreed to starting daily anti- anxiety medication in addition to current regimen. Denies headache, vision changes, chest pain, nausea and abdominal pain. - Objective MAR Reviewed: Yes Vital Signs & Weight: Vital Signs (12 hours) Temp Pulse Resp BP Pulse Ox 07/15/20 05:47 98.1 F 99 20 119/77 98 07/15/20 00:01 97.4 F L 123 H 20 123/80 96 07/14/20 21:00 98.7 F 117 H 20 128/80 97 07/14/20 20:00 98.2 F 107 H 20 124/80 97 Weight Admit Weight 104.009 kg Weight 104 kg I&O: 07/13/20 07/14/20 07/15/20 06:59 06:59 06:59 Intake Total 1890 650 480 Output Total 2245 1100 600 Balance -355 -450 -120 Result Diagrams: 07/12/20 06:18 07/12/20 06:18 Phys Exam - Physical Examination Constitutional: NAD HEENT: moist MMs, sclera anicteric Neck: full ROM Respiratory: no wheezing, no rales, no rhonchi, clear to auscultation bilateral Saturing 75% on 4L, improved to 93% after breathing techniques Cardiovascular: RRR, no significant murmur Gastrointestinal: soft, non-tender, positive bowel sounds Musculoskeletal: no edema Neurological: non-focal Deviation from normal: Anxious upon arrival to room, more calm when leaving Skin: no rash Dx/Plan - Plan Plan: Patient is a 54 y/o male who presented to the ER for evaluation of SOB. #Acute Hypoxic Respiratory Failure 2/2 COVID-19 PNA -Patient reports fluctuating symptoms that started on 06/26 - COVID(+) test on 06/28 -CXR: Worsening COVID PNA with vascular congestion -CTA: Negative for PE, but diffuse ground glass opacities noted -Dexamethasone 6 mg IV daily -s/p Convalescent Plasma - unable to give Remdesivir due to WYATT/CKD -Continue anticoagulation at Lovenox 40 mg SC BID based on Anti-Factor Xa and improved renal function -s/p Vanc & Cefepime in ER, Ceftriaxone (07/04-07/08) and Azithromycin (07/04-07/08) -Procal: 2.42 > 0.3 - ABx were dc'd as Procal downtrended -Currently on 4L O2 via NC after down-titration from HFNC - will continue to wean as tolerated and encourage physical activity #Anxiety Manifests with intermittent tachycardia and feelings of air hunger - improved since addition of anxiety medications. Likely due to feelings of isolation and SOB related to COVID infection. -Hydroxyzine 25mg Q6H PRN -> 50mg Q6H scheduled -Lorazepam 0.5 mg Q6H PRN -> 0.5mg Q6H scheduled -Start fluoxetine 20mg daily #Hyponatremia, improved -Likely 2/2 WYATT on CKD, although transient SIADH is possible -Na: 128 > 134, no changes in mentation or evidence of seizure activity -Will continue to monitor closely with AM Labs #Intractable Hiccups, resolved -Gabapentin RADHA -Compazine RADHA #WYATT on CKD, likely resolved -Baseline unknown but patient denies known Hx of CKD - reports decreased PO intake over the several days prior to admission due to coughing -Cr: 3.11 > 1.12 -GFR: 21 > 69 -Currently holding Metformin -Urine studies demonstrate an intrinsic disease process #Hypokalemia, resolved -K: 3.0 > 3.6 #Hypomagnesemia, resolved -M.5 > 1.7 #AG Metabolic Acidosis, resolved -Gap: 23 > 10 -Lactic Acid: 3.4 > 1.9 -Will continue to monitor #HTN -BP currently at goal -Continue Lisinopril/HCTZ #DM2 -A1C: 10.6 -Currently holding Metformin due to WYATT/CKD; reports he takes trulicity weekly, "maximum dose" -Lantus 40 in am, 45 in pm -Humalog 12 u TID -Steroids are likely contributing to elevated POC Glucose readings -Will DC with weight-based long-acting insulin and encourage close follow-up with PCP in order to titrate appropriately following dc of steroids PCP: Claude Code: Full Diet: Consistent Carb w/ Glucerna Shakes Activity: Ad burke VTE PPx: Lovenox 40 mg SC BID Dispo: Patient is currently stable and admitted to the Medical Floor for ongoing treatment of AHRF due to COVID-19 PNA. Patient is currently s/p Convalescent Plasma - will continue steroids and anticoagulation as per above. Will continue to monitor patient's POC Glucose readings and continue to adjust insulin regimen as required. As patient's respiratory status is improving, will consult Case Management for assistance with home O2 which may aid in DC Addendum - Attending - Attending Attestation Date/Time: 07/15/20 0608 I personally evaluated the patient and discussed the management with Dr. Randolph I agree with the History, Examination, Assessment and Plan documented above with any addition or exceptions noted below.Patient with marked anxiety reassurance schedule rx advance activity as tolerated.
[2020-07-15] MEDS: Lorazepam 0.5 MG TAB PO PRN (06:24)
[2020-07-15] MEDS: Lisinopril/Hydrochlorothiazide 20/25 mg Tablet PO SCH (08:45)
[2020-07-15] MEDS: Enoxaparin Sodium 40 MG/0.4 ML SYRINGE SC SCH ×2 (08:45→19:45)
[2020-07-15] MEDS: Dexamethasone 4 MG TAB PO SCH (08:45)
[2020-07-15] MEDS: Insulin Glargine 45 UNITS in Pre-Filled Syringe 1 EACH SC SCH (08:46)
[2020-07-15] MEDS: Benzonatate 100 MG CAP PO SCH ×3 (08:46→19:48)
[2020-07-15] MEDS: Insulin Glargine 40 UNITS in Pre-Filled Syringe 1 EACH SC SCH (08:46)
[2020-07-15] MEDS: Tamsulosin HCl 0.4 MG CAP PO SCH (08:46)
[2020-07-15] MEDS: guaiFENesin/DM ER PO SCH ×2 (08:46→19:48)
[2020-07-15] MEDS: HumaLOG 300 UNITS/3 ML VIAL SC SCH ×3 (08:47→16:36)
[2020-07-15] MEDS: Lorazepam 0.5 MG TAB PO SCH ×3 (10:21→21:02)
[2020-07-15] MEDS: hydrOXYzine 25 MG TAB PO SCH ×2 (14:32→19:49)
[2020-07-16] MEDS: Lorazepam 0.5 MG TAB PO SCH ×2 (03:23→08:53)
[2020-07-16] MEDS: hydrOXYzine 25 MG TAB PO SCH ×4 (03:23→20:40)
[2020-07-16] MEDS: Prochlorperazine Maleate 5 MG TAB PO SCH ×3 (05:16→18:20)
[2020-07-16] MEDS: Acetaminophen 325 MG TAB PO PRN (05:16)
--- NOTE | 2020-07-16 06:17 | PDOC.FM ---
- Subjective Subjective: Per nursing report, patient was anxious upon entering the room this am with tachycardia, tachypnea and sat in 80s. Patient was increased to 6L then transitioned to NRB with reported resolution of his anxiety. During morning rounds, patient reported improvement of SOB compared to yesterday. Denies headache, chest pain, palpitations, abdominal pain and edema. Reported improvement of anxiety with scheduled medications. MIRIAM FRIAS called at 0930. Upon arrival, patient was tachycardic (HR 180s), tachypneic, hypotensive (BP 90s/60s), hypoxic (sat 80s). Reported severe anxiety. Given 1mg ativan with improvement of anxiety. Continued to be tachypneic, although improved. Tachycardia improved to HR 150s. O2 sat improved to low 90s. CBC, BMP, CRP, TSH ordered. ABG completed and showed respiratory alkalosis. CTA Chest ordered to r/o pulmonary embolism. Patient transitioned to HFNC. He will be transferred to floor where closer monitoring is available. - Objective MAR Reviewed: Yes Vital Signs & Weight: Vital Signs (12 hours) Temp Pulse Resp BP Pulse Ox 07/16/20 03:54 98.5 F 108 H 22 H 111/70 93 L 07/16/20 00:30 98.8 F 103 H 20 106/71 95 07/15/20 20:00 97 07/15/20 19:59 98.1 F 98 20 118/80 97 Weight Admit Weight 104.009 kg Weight 104 kg I&O: 07/14/20 07/15/20 07/16/20 06:59 06:59 06:59 Intake Total 650 480 480 Output Total 1100 600 650 Balance -450 -120 -170 Result Diagrams: 07/16/20 09:45 07/16/20 09:45 Phys Exam - Physical Examination Constitutional: NAD HEENT: moist MMs, sclera anicteric Neck: full ROM Respiratory: clear to auscultation bilateral Cardiovascular: RRR, no significant murmur Gastrointestinal: soft, non-tender, positive bowel sounds Musculoskeletal: no edema Neurological: non-focal Psychiatric: normal affect, A&O x 3 Skin: no rash Dx/Plan - Plan Plan: Patient is a 54 y/o male who presented to the ER for evaluation of SOB. #Acute Hypoxic Respiratory Failure 2/2 COVID-19 PNA -Patient reports fluctuating symptoms that started on 06/26 - COVID(+) test on 06/28 -CXR: Worsening COVID PNA with vascular congestion -CTA: Negative for PE, but diffuse ground glass opacities noted -Dexamethasone 6 mg IV daily -s/p Convalescent Plasma - unable to give Remdesivir due to WYATT/CKD -Continue anticoagulation at Lovenox 40 mg SC BID based on Anti-Factor Xa and improved renal function -s/p Vanc & Cefepime in ER, Ceftriaxone (07/04-07/08) and Azithromycin (07/04-07/08) -Procal: 2.42 > 0.3 - ABx were dc'd as Procal downtrended -Post CODE GREEN on 07/16 am: sat'ing 95% on HFNC. Will wean as tolerated -F/u CBC, BMP, TSH, CRP -F/u CTA Chest -Bed check after transfer to new floor #Anxiety Manifests with intermittent tachycardia, tachypnea and feelings of air hunger - improved since addition of anxiety medications. Likely due to feelings of isolation and SOB related to COVID infection. -Hydroxyzine 50mg Q6H scheduled -Lorazepam 0.5mg Q6H scheduled -Continue fluoxetine 20mg daily #Hyponatremia, improved -Likely 2/2 WYATT on CKD, although transient SIADH is possible -Na: 128 > 134 > 135, no changes in mentation or evidence of seizure activity -Will continue to monitor with am labs #Intractable Hiccups, resolved -Gabapentin RADHA -Compazine RADHA #WYATT on CKD, likely resolved -Baseline unknown but patient denies known Hx of CKD - reports decreased PO intake over the several days prior to admission due to coughing -Cr: 3.11 > 1.12 > 1.34 -GFR: 21 > 69 -Currently holding Metformin -Urine studies demonstrate an intrinsic disease process #Hypokalemia, resolved -K: 3.0 > 3.6 > 4.1 #Hypomagnesemia, resolved -M.5 > 1.7 #AG Metabolic Acidosis, resolved -Gap: 23 > 10 -Lactic Acid: 3.4 > 1.9 -Will continue to monitor #HTN -BP currently at goal -Continue Lisinopril/HCTZ #DM2 -A1C: 10.6 -Currently holding Metformin due to WYATT/CKD; reports he takes trulicity weekly, "maximum dose" -Lantus 40 in am, 45 in pm -Humalog 12 u TID -Steroids are likely contributing to elevated POC Glucose readings -Will DC with weight-based long-acting insulin and encourage close follow-up with PCP in order to titrate appropriately following dc of steroids PCP: Claude Code: Full Diet: Consistent Carb w/ Glucerna Shakes Activity: Ad burke VTE PPx: Lovenox 40 mg SC BID Dispo: Patient admitted to the Medical Floor for ongoing treatment of AHRF due to COVID-19 PNA. Patient is currently s/p Convalescent Plasma - will continue steroids and anticoagulation as per above. Will continue to monitor patient's POC Glucose readings and continue to adjust insulin regimen as required. As patient's respiratory status is improving, will consult Case Management for assistance with home O2 which may aid in DC Addendum - Attending - Attending Attestation Date/Time: 07/16/20 2548 I personally evaluated the patient and discussed the management with Dr. Randolph I agree with the History, Examination, Assessment and Plan documented above with any addition or exceptions noted below. Patient has been challenge with extreme anxiety and requiring disproportionate amount of isolated floor nursing care. Today patient with change in status desaturating to 70s he was diaphoretic tachypneic and marked tachycardia with rates to 170 and still in 140 despite sedation with ativan. ABGs On Non- rebreather c/w hyperventilation borderline oxygenation. Concern with worsening COVD PNA r/o thrombotic event will obtain CTA and transfer to higher level of care and keep family notified of status change.
[2020-07-16] MEDS: Mometasone 100 MCG/Formoterol 5 MCG 120 PUFF INHALER INH SCH ×2 (06:23→20:10)
[2020-07-16] MEDS: Enoxaparin Sodium 40 MG/0.4 ML SYRINGE SC SCH ×2 (08:19→20:46)
[2020-07-16] MEDS: Benzonatate 100 MG CAP PO SCH ×3 (08:19→20:39)
[2020-07-16] MEDS: Dexamethasone 4 MG TAB PO SCH (08:20)
[2020-07-16] MEDS: FLUoxetine HCl 20 MG CAP PO SCH (08:21)
[2020-07-16] MEDS: Lisinopril/Hydrochlorothiazide 20/25 mg Tablet PO SCH (08:21)
[2020-07-16] MEDS: Tamsulosin HCl 0.4 MG CAP PO SCH (08:21)
[2020-07-16] MEDS ORDERED: Iopamidol-370 76% 500 ML 1 ML ONE (08:37)
[2020-07-16] MEDS: guaiFENesin/DM ER PO SCH ×2 (08:49→20:40)
[2020-07-16] MEDS ORDERED: Lorazepam 2 MG/ML VIAL ONE ×2 (09:33→10:52)
[2020-07-16 10:06] LABS: Actual Bicarbonate (HCO3a) 23.3 mEq/L (22-28); Base Excess (BEa) -0.1 mEq/L (-2.0 to +3.0); Calcium, Ionized (arterial) 1.18 mmol/L (1.12-1.30); Carboxyhemoglobin (COHb) 0.9 gm% (0.0-3.0); Hemoglobin (Hb) 13.8 g/dL (14.0-18.0); Potassium - ABG Lab 3.77 mmol/L (3.70-5.30); pH, Arterial 7.45 (7.35-7.45)
[2020-07-16 10:07] LABS: Puncture Site LRA
[2020-07-16 10:22] LABS: Hemoglobin 13.5 g/dL (14.0-18.0); Mean Corpuscular HGB CONC 32.7 g/dL (32.0-36.0); Mean Corpuscular Hemoglobin 30.9 pg (27.0-31.0); Mean Corpuscular Volume 94.6 fL (78.0-98.0); Mean Platelet Volume 6.8 fL (7.4-10.4); Platelet Count 664 thou/uL (130-400); RBC Distribution Width 12.6 % (11.5-14.5); Red Blood Cell (RBC) Count 4.36 mill/uL (4.70-6.10); White Blood Cell (WBC) Count 24.6 thou/uL (4.8-10.8)
[2020-07-16 10:35] LABS: Anion Gap 17 mmol/L (10-20); BUN (Urea Nitrogen) 29 mg/dL (8.4-25.7); CRP (Inflammatory) 27.34 mg/dL (= or < 0.5); Calc. Creatinine Clearance 95 mL/min (70-130); Calcium 9.4 mg/dL (7.8-10.44); Carbon Dioxide 23 mmol/L (22-29); Chloride 99 mmol/L (98-107); Glucose 128 mg/dL (70-105); Potassium 4.1 mmol/L (3.5-5.1); Sodium 135 mmol/L (136-145)
[2020-07-16 11:16] LABS: Lymphocytes 9 % (21-51); MDiff Complete? YES; Monocytes 6 % (0-10); Neutrophil 85 % (42-75); Platelet Morphology Comment Appears Increased; RBC Morphology Normal
[2020-07-16] MEDS ORDERED: Propofol 1,000 MG/100 ML VIAL IV ONE (11:19)
[2020-07-16] MEDS: HumaLOG 300 UNITS/3 ML VIAL SC SCH ×2 (11:20→17:31)
[2020-07-16] MEDS: Insulin Glargine 40 UNITS in Pre-Filled Syringe 1 EACH SC SCH (11:21)
[2020-07-16] MEDS: Insulin Glargine 45 UNITS in Pre-Filled Syringe 1 EACH SC SCH (11:21)
--- NOTE | 2020-07-16 12:05 | CT ---
CTA CHEST WITH CONTRAST: Date: 07/16/2020 Axial tomograms obtained with multiplanar reconstruction following angio protocol with multiplanar re construction and 3D postprocessing. INDICATION: COVID pneumonia. Shortness of breath. Assess for pulmonary embolus. Correlation made to CTA chest 07/03/2020. FINDINGS: The patient was unable to follow breathing instructions and unable to hold breath, and therefore alisha on artifact degrades exam. There is no evidence of proximal pulmonary embolus to the segmental level. Peripheral pulmonary arter ies are degraded due to artifact. Thoracic aorta unremarkable. Nonspecific mediastinal and hilar cassandra opathy. Review of the lung zabala show diffuse confluent infiltrates throughout both lungs. These infiltrates have progressed when compared to 07/03/2020 and now show more dense consolidation where as previousl y they had a more ground-glass appearance. IMPRESSION: 1. Degraded exam; however, no evidence of pulmonary embolus identified. 2. Bilateral diffuse confluent infiltrates with increasing consolidation when compared to 07/03/2020 . POS: AGW
[2020-07-16] MEDS ORDERED: Dextrose 50% Abboject 50 ML SYRINGE ONE ×2 (13:25→14:26)
[2020-07-16] MEDS ORDERED: Lorazepam 2 MG/ML VIAL SLOW IVP SCH (13:45)
[2020-07-16] MEDS: Dextrose 50% Abboject 50 ML SYRINGE SLOW IVP PRN ×2 (14:33→17:02)
[2020-07-16] MEDS ORDERED: Propofol BOLUS 1,000 MG/100 ML VIAL IV PRN (15:00)
[2020-07-16] MEDS ORDERED: DISCONTINUE PREVIOUS NARCOTIC PAIN MEDICATIONS AND BENZODIAZEPINES FS SCH (15:00)
[2020-07-16] MEDS ORDERED: Fentanyl BOLUS 250 ML IVPB PRN (15:00)
[2020-07-16 15:14] LABS: Glucose POC Confirmation Less than 7 mg/dl (70-105)
[2020-07-16] MEDS ORDERED: Rocuronium Bromide 10 MG/ML (10ML VIAL) IVP SCH (15:15)
[2020-07-16] MEDS: fentaNYL Citrate/PF 2,000 MCG in Sodium Chloride 0.9% 60 ML IV SCH (15:30)
[2020-07-16] MEDS: Lorazepam 2 MG/ML VIAL SLOW IVP PRN (15:42)
[2020-07-16] MEDS: Propofol 1,000 MG/100 ML VIAL IV PRN ×2 (15:42→18:28)
[2020-07-16 16:33] LABS: Glucose 70 mg/dL (70-105)
--- NOTE | 2020-07-16 16:37 | PRG ---
DATE OF SERVICE: 07/16/2020 SUBJECTIVE: Pavan Celaya is a 54-year-old male, who has been in the hospital with COVID. Per my discussion with the attending and respiratory therapist, he has been dealing mainly with anxiety, but was improving to a point where everyone felt he might be going home today. Apparently, today, he had a rapid decompensation leading to intubation. CT pulmonary angiogram showed a dense diffuse alveolar infiltrates that are contrast to a chest radiograph few days back. PAST MEDICAL HISTORY: Remarkable for: 1. Hypertension. 2. Diabetes. His symptoms started 06/26 and tested positive on 06/28 reportedly, so he is over 20 days into this illness. FAMILY HISTORY: Negative for lung disease in early age. SOCIAL HISTORY: He is not a daily smoker or drinker. Does not use drugs. REVIEW OF SYSTEMS: Not obtainable. PHYSICAL EXAMINATION: VITAL SIGNS: Heart rate is 112, FiO2 is 80%, blood pressure 198/82, respiratory rates in the 30s. HEAD AND NECK: Unremarkable. Nurses preparing to flip him to prone. LUNGS: Remarkable for equal breath sounds. HEART: Regular rhythm. ABDOMEN: Soft. EXTREMITIES: Without asymmetry. LABORATORY DATA: White count 24.6, hemoglobin 13.5, and platelets 664. Electrolytes are unremarkable. Creatinine is 1.34. IMPRESSION: COVID pneumonia. He has certainly been in the hospital long enough where he could have a secondary bacterial infection with acute respiratory distress syndrome leading to his decompensation. I think, he should be cultured and have broad antimicrobial therapy initiated. We will follow. Job ID: [id number]
[2020-07-16] MEDS: Vecuronium 10 MG VIAL IV PRN (17:31)
[2020-07-16] MEDS: Meropenem 2 GM, Admixture Fee 1 EACH in Sodium Chloride 0.9% 100 ML IVPB SCH (18:17)
[2020-07-16] MEDS: Norepinephrine 8 MG in Dextrose 5% in Water 242 ML IVPB PRN ×2 (18:57→22:02)
--- NOTE | 2020-07-16 19:04 | RAD ---
PORTABLE CHEST: History: Intubation Comparison: 07-10-2020 FINDINGS: Endotracheal and NG tubes are in satisfactory position. There has been a significant worsening of the infiltrative lung changes as compared to the most recent chest radiograph of 07-10-2020. IMPRESSION: 1. Worsening bilateral infiltrates. 2. Endotracheal and NG tubes in satisfactory position. POS: RADHA
--- NOTE | 2020-07-16 19:43 | PDOC.CNTRL ---
Central Line Procedure Note - Procedure Date: 07/16/20 Time: 19:00 - PreProcedure Diagnosis: Acute hypoxic respiratory failure 2/2 COVID PNA - PostProcedure Diagnosis: Acute hypoxic respiratory failure 2/2 COVID PNA - Description Focused site: internal jugular: Right Ultrasound guidance: Yes Patient tolerated procedure: no complications Procedure in Details: INDICATION: IV access required for administration of Levophed and larger amounts of IVF for the management of recurrent hypotension in the setting of sedation due to intubation. PROCEDURE BRICK AND BLOCKER AID LABOR: Sanna Cartagena MD / Ayana Shaver MD ATTENDING PHYSICIAN: Adria Bassett MD was in attendance and providing guidance throughout the procedure. CONSENT: Consent was obtained from the patient's (Phylicia) prior to the procedure. Indications, risks, and benefits were explained at length. The procedure was performed urgently. PROCEDURE SUMMARY: The procedure started with the first hand sanitization prior to starting sterile technique. A time out was performed. My hands were washed immediately prior to the procedure. I wore an N95 and surgical mask with face shield, full gown and sterile gloves on top of droplet precaution gown and gloves throughout the procedure. The patient was placed in Trendelenburg position. The right chest region was prepped using chlorhexidine scrub and draped in sterile fashion using a full drape and sterile probe cover employed. The medial and lateral heads of the sternocleidomastoid muscle were identified as was the carotid pulse. The Internal Jugular vein was identified using the ultrasound. Anesthesia was not required due to patient being sedated and intubated. Using real-time out of plane guidance, the introducer needle was inserted into the Internal Jugular vein under direct ultrasound visualization. Venous blood was withdrawn. The syringe was removed and a guidewire was advanced into the introducer needle. The guidewire was visualized in the Internal Jugular Vein by ultrasound. A small incision was made at the skin surface with a scalpel and the introducer needle was exchanged for a dilator over the guidewire. After appropriate dilation was obtained, the dilator was exchanged over the wire for a central venous catheter. The wire was removed and the catheter was sutured in place at 15 cm. A sterile sorbaview shield was placed over the catheter at the insertion site. The patient tolerated the procedure without any hemodynamic compromise. At time of procedure completion, all ports were aspirated and flushed properly. Post-procedure chest x-ray confirmed correct placement of the catheter. Estimated blood loss is 10mL. ATTENDING ADDENDUM: I was present for and supervised the entire procedure. I agree with the above documentation.
--- NOTE | 2020-07-16 20:35 | RAD ---
RADIOGRAPH CHEST 1 VIEW: Date: 07-16-2020 Time: 7:39 P.M. HISTORY: 54-year-old male status post central line placement. COMPARISON: 07-16-2020 at 11:55 a.m. FINDINGS: There is a new central vascular catheter descending from the right supraclavicular neck, with distal tip overlying SVC/right atrial junction. Endotracheal tube and esophogastric tube remain. Severe bilateral airspace disease, left worse than right. The infiltrates on the right appear slightl y improved since the prior study. Supine imaging makes this insensitive for pneumothorax detection. IMPRESSION: 1. Status post right sided central vascular catheter placement. 2. Severe bilateral infiltrates, appear minimally improved, especially on the right. JN POS: JIN
[2020-07-17] MEDS: Dextrose 10% in Water 1,000 ML IV SCH ×2 (01:00→03:42)
[2020-07-17] MEDS: Prochlorperazine Maleate 5 MG TAB PO SCH ×5 (01:01→18:03)
[2020-07-17] MEDS: Meropenem 2 GM, Admixture Fee 1 EACH in Sodium Chloride 0.9% 100 ML IVPB SCH ×3 (01:22→18:56)
[2020-07-17] MEDS: hydrOXYzine 25 MG TAB PO SCH ×4 (03:59→20:37)
[2020-07-17 04:06] LABS: #Basophils 0.1 thou/uL (0.0-0.2); #Lymphocytes 1.6 thou/uL (1.20-3.40); #Monocytes 1.5 thou/uL (0.11-0.59); #Neutrophils 17.9 thou/uL (1.40-6.50); %Basophils 0.3 % (0.0-1.0); %Eosinophils 0.1 % (0.0-10.0); %Lymphocytes 7.4 % (21.0-51.0); %Monocytes 6.9 % (0.0-10.0); %Neutrophils 85.2 % (42.0-75.0); Hemoglobin 10.6 g/dL (14.0-18.0); Mean Corpuscular HGB CONC 32.6 g/dL (32.0-36.0); Mean Corpuscular Volume 95.1 fL (78.0-98.0); Platelet Count 598 thou/uL (130-400); RBC Distribution Width 12.5 % (11.5-14.5); Red Blood Cell (RBC) Count 3.41 mill/uL (4.70-6.10)
[2020-07-17 04:28] LABS: Anion Gap 14 mmol/L (10-20); BUN (Urea Nitrogen) 25 mg/dL (8.4-25.7); Calc. Creatinine Clearance 109 mL/min (70-130); Calcium 8.1 mg/dL (7.8-10.44); Carbon Dioxide 25 mmol/L (22-29); Chloride 101 mmol/L (98-107); Glucose 178 mg/dL (70-105); Potassium 4.6 mmol/L (3.5-5.1); Sodium 135 mmol/L (136-145)
--- NOTE | 2020-07-17 05:46 | PDOC.FM ---
- Subjective Subjective: Patient was intubated and sedated at the time of evaluation. Per the Resident Night Team, the patient was intubated following a CODE GREEN that was notable for diminishing respiratory status, hypoglycemia and hypotension. - Objective Vital Signs & Weight: Vital Signs (12 hours) Temp Pulse Resp Pulse Ox 07/17/20 04:00 20 07/17/20 02:08 96 07/17/20 02:00 20 07/17/20 00:00 98.7 F 20 07/16/20 22:56 85 07/16/20 22:00 20 07/16/20 20:10 112 H 07/16/20 20:00 20 100 07/16/20 18:00 20 Weight Admit Weight 96.5 kg Weight 104 kg Most Recent Monitor Data Heart Rate from ECG 92 NIBP 105/76 NIBP BP-Mean 85 Respiration from ECG 20 SpO2 100 I&O: 07/15/20 07/16/20 07/17/20 06:59 06:59 06:59 Intake Total 919 030 3866.3 Output Total 600 1250 2450 Balance -120 -320 1151.3 Result Diagrams: 07/17/20 05:53 07/17/20 05:53 Phys Exam - Physical Examination Constitutional: NAD HEENT: moist MMs Neck: no nodes, supple Respiratory: no wheezing, no rales, no rhonchi, clear to auscultation bilateral Cardiovascular: RRR, no significant murmur, no rub Gastrointestinal: soft, non-tender, no distention, positive bowel sounds Musculoskeletal: no edema, pulses present Neurological: non-focal Deviation from normal: Intubated and sedated Dx/Plan (1) CKD (chronic kidney disease) Code(s): N18.9 - CHRONIC KIDNEY DISEASE, UNSPECIFIED Status: Chronic (2) Acute respiratory failure with hypoxia Code(s): J96.01 - ACUTE RESPIRATORY FAILURE WITH HYPOXIA Status: Acute (3) COVID-19 Code(s): U07.1 - COVID-19 Status: Acute (4) Diabetes Code(s): E11.9 - TYPE 2 DIABETES MELLITUS WITHOUT COMPLICATIONS Status: Chroni c (5) Hypertension Code(s): I10 - ESSENTIAL (PRIMARY) HYPERTENSION Status: Chronic - Plan Plan: Patient is a 54 y/o male who presented to the ER for evaluation of SOB. #Acute Hypoxic Respiratory Failure 2/2 COVID-19 PNA -Patient reports fluctuating symptoms that started on 06/26 - COVID(+) test on 06/28 -CXR: Worsening COVID PNA with vascular congestion -CTA Chest: Negative for PE, but diffuse ground glass opacities noted -Dexamethasone 6 mg IV daily -s/p Convalescent Plasma - unable to give Remdesivir due to WYATT/CKD -Initially on Lovenox 40 mg SC daily due to renal function - transitioned to BID dosing based on Anti-Factor Xa and improved renal function -Repeat Anti-Factor Xa: Pending -s/p Vanc & Cefepime in ER, Ceftriaxone (07/04-07/08) and Azithromycin (07/04-07/08) -Procal: 2.42 > 0.3 - ABx initially dc'd as Procal downtrended - will repeat this AM based on rapid decline -s/p CODE GREEN on 07/16 for worsening respiratory status, hypoglycemia and hypotension -Currently intubated and requiring BP support with Leveophed gtt -Pulmonology: Consulted, recs appreciated - Meropenem started #Anxiety -Intermittent throughout hospitalization - manifests with intermittent tachycardia, tachypnea and feelings of air hunger -Hydroxyzine 50mg Q6H scheduled -Lorazepam 0.5mg Q6H scheduled -Continue Fluoxetine 20mg daily #Hyponatremia, improved -Likely 2/2 WYATT on CKD, although transient SIADH is possible -Na: 128 > 134 > 135, no changes in mentation or evidence of seizure activity -Will continue to monitor with AM Labs #Intractable Hiccups, resolved -Gabapentin RADHA -Compazine RADHA #WYATT on CKD, likely resolved -Baseline unknown but patient denies known Hx of CKD - reports decreased PO intake over the several days prior to admission due to coughing -Cr: 3.11 > 1.12 > 1.34 -GFR: 21 > 69 -Currently holding Metformin -Urine studies demonstrate an intrinsic disease process #Hypokalemia, resolved -K: 3.0 > 3.6 > 4.1 #Hypomagnesemia, resolved -M.5 > 1.7 #AG Metabolic Acidosis, resolved -Gap: 23 > 10 -Lactic Acid: 3.4 > 1.9 -Will continue to monitor #HTN -Initially on Lisinopril/HCTZ -Will hold antihypertensive regimen pending weaning of Levophed gtt #DM2 -A1C: 10.6 -Currently holding Metformin due to WYATT/CKD; reports he takes Trulicity weekly at "maximum dose" -Lantus 40u QAM, 45u QPM -Humalog 12u TID -Steroids are likely contributing to elevated POC Glucose readings -Will DC with weight-based long-acting insulin and encourage close follow-up with PCP in order to titrate appropriately following dc of steroids PCP: Claude Code: Full Diet: NPO Activity: Bed Rest VTE PPx: Lovenox 40 mg SC BID GI PPx: Protonix Dispo: Patient is currently in critical condition in the ICU s/p intubation on 07/16 due to AHRF 2/2 COVID-19 Pneumonia. Will continue Dexamethasone, Levophed and Lovenox as per above. Pulmonology consulted, recs appreciated. Will continue to monitor patient's POC Glucose readings and continue to adjust insulin regimen as required. Expected LOS > 48H. Addendum - Attending - Attending Attestation Date/Time: 07/17/20 1498 I personally evaluated the patient and discussed the management with Dr. Pinto. I agree with the History, Examination, Assessment and Plan documented above with any addition or exceptions noted below.
[2020-07-17 06:09] LABS: #Lymphocytes 1.6 thou/uL (1.20-3.40); #Monocytes 1.5 thou/uL (0.11-0.59); #Neutrophils 17.2 thou/uL (1.40-6.50); %Basophils 0.2 % (0.0-1.0); %Eosinophils 0.1 % (0.0-10.0); %Lymphocytes 7.8 % (21.0-51.0); %Monocytes 7.5 % (0.0-10.0); %Neutrophils 84.3 % (42.0-75.0); Hemoglobin 10.6 g/dL (14.0-18.0); Mean Corpuscular HGB CONC 31.2 g/dL (32.0-36.0); Mean Corpuscular Hemoglobin 29.5 pg (27.0-31.0); Mean Corpuscular Volume 94.6 fL (78.0-98.0); Mean Platelet Volume 6.7 fL (7.4-10.4); Platelet Count 605 thou/uL (130-400); RBC Distribution Width 12.6 % (11.5-14.5); Red Blood Cell (RBC) Count 3.59 mill/uL (4.70-6.10); White Blood Cell (WBC) Count 20.4 thou/uL (4.8-10.8)
[2020-07-17] MEDS: Propofol 1,000 MG/100 ML VIAL IV PRN ×5 (06:31→22:44)
[2020-07-17 06:36] LABS: ALT (SGPT) 233 U/L (8-55); AST (SGOT) 99 U/L (5-34); Albumin 2.6 g/dL (3.5-5.0); Alkaline Phosphatase 262 U/L (40-110); Anion Gap 13 mmol/L (10-20); BUN (Urea Nitrogen) 23 mg/dL (8.4-25.7); Bilirubin, Total 0.4 mg/dL (0.2-1.2); Calc. Creatinine Clearance 113 mL/min (70-130); Calcium 8.1 mg/dL (7.8-10.44); Carbon Dioxide 22 mmol/L (22-29); Chloride 101 mmol/L (98-107); Globulin 3.6 g/dL (2.4-3.5); Glucose 209 mg/dL (70-105); Potassium 4.3 mmol/L (3.5-5.1); Protein, Total 6.2 g/dL (6.0-8.3); Sodium 132 mmol/L (136-145)
[2020-07-17] MEDS: Lorazepam 2 MG/ML VIAL SLOW IVP PRN ×2 (07:32→09:08)
[2020-07-17] MEDS: Vecuronium 10 MG VIAL IV PRN ×3 (07:32→15:21)
[2020-07-17] MEDS: HumaLOG 300 UNITS/3 ML VIAL SC SCH ×3 (08:00→17:00)
[2020-07-17] MEDS: Mometasone 100 MCG/Formoterol 5 MCG 120 PUFF INHALER INH SCH ×2 (08:01→18:58)
--- NOTE | 2020-07-17 08:17 | PRG ---
DATE OF SERVICE: 07/17/2020 SUBJECTIVE: Mr. Celaya still has a FiO2 of 80%. OBJECTIVE: VITAL SIGNS: Blood pressure is 108/71, heart rate is 90, respiratory rate is 20. LUNGS: Remarkable for equal breath sounds. HEART: Regular rate and rhythm. ABDOMEN: Soft. EXTREMITIES: Without asymmetry. LABORATORY DATA: White count 21, hemoglobin 10.6, and platelets 598. Sodium 132, potassium 4.3, chloride 101, bicarb 22, BUN 23, creatinine 1.12. Liver enzymes are elevated. IMPRESSION: Respiratory failure initially improving with COVID, but then rapidly decompensated, bringing up the possibility of nosocomial bacterial infection. Antimicrobial coverage was started. We will continue with ventilatory support. Critical care time 30 min. Job ID: [id number] MTDD
[2020-07-17] MEDS: guaiFENesin/DM ER PO SCH ×2 (09:00→20:37)
[2020-07-17] MEDS: Dexamethasone 4 MG TAB PO SCH (09:48)
[2020-07-17] MEDS: FLUoxetine HCl 20 MG CAP PO SCH (09:48)
[2020-07-17] MEDS: Tamsulosin HCl 0.4 MG CAP PO SCH (09:48)
[2020-07-17] MEDS: Enoxaparin Sodium 40 MG/0.4 ML SYRINGE SC SCH ×2 (09:49→20:36)
[2020-07-17] MEDS: Benzonatate 100 MG CAP PO SCH ×3 (09:49→20:36)
[2020-07-17] MEDS: Lisinopril/Hydrochlorothiazide 20/25 mg Tablet PO SCH (09:50)
[2020-07-17] MEDS: Insulin Glargine 45 UNITS in Pre-Filled Syringe 1 EACH SC SCH (09:59)
[2020-07-17] MEDS: Insulin Glargine 40 UNITS in Pre-Filled Syringe 1 EACH SC SCH (09:59)
[2020-07-17] MEDS: Morphine 2 MG/ML VIAL SLOW IVP PRN ×2 (10:59→15:21)
[2020-07-17] MEDS ORDERED: Norepinephrine 8 MG/0.9% NS 8 MG in Premix Bag 1 BAG IVPB PRN (14:30)
[2020-07-17] MEDS: fentaNYL Citrate/PF 2,000 MCG in Sodium Chloride 0.9% 60 ML IV SCH (15:10)
[2020-07-17] MEDS: Lactated Ringer's 1,000 ML IV SCH (18:08)
[2020-07-17] MEDS: HumaLOG 300 UNITS/3 ML VIAL SC PRN (21:25)
[2020-07-18] MEDS: Meropenem 2 GM, Admixture Fee 1 EACH in Sodium Chloride 0.9% 100 ML IVPB SCH ×3 (00:19→17:49)
[2020-07-18] MEDS: Morphine 2 MG/ML VIAL SLOW IVP PRN (00:21)
[2020-07-18] MEDS: Vecuronium 10 MG VIAL IV PRN (00:21)
[2020-07-18] MEDS: Prochlorperazine Maleate 5 MG TAB PO SCH ×5 (01:57→22:44)
[2020-07-18] MEDS: hydrOXYzine 25 MG TAB PO SCH ×5 (03:01→22:44)
[2020-07-18] MEDS: Propofol 1,000 MG/100 ML VIAL IV PRN ×4 (03:08→15:27)
[2020-07-18] MEDS ORDERED: Fentanyl CADD 100 ML ONE ×2 (04:59→17:44)
[2020-07-18 05:05] LABS: #Lymphocytes 1.8 thou/uL (1.20-3.40); #Monocytes 1.2 thou/uL (0.11-0.59); #Neutrophils 13.4 thou/uL (1.40-6.50); %Basophils 0.2 % (0.0-1.0); %Eosinophils 0.2 % (0.0-10.0); %Lymphocytes 10.9 % (21.0-51.0); %Monocytes 7.5 % (0.0-10.0); %Neutrophils 81.2 % (42.0-75.0); Hemoglobin 10.4 g/dL (14.0-18.0); Mean Corpuscular HGB CONC 32.5 g/dL (32.0-36.0); Mean Corpuscular Hemoglobin 30.6 pg (27.0-31.0); Mean Corpuscular Volume 94.1 fL (78.0-98.0); Mean Platelet Volume 6.8 fL (7.4-10.4); Platelet Count 612 thou/uL (130-400); RBC Distribution Width 12.4 % (11.5-14.5); White Blood Cell (WBC) Count 16.5 thou/uL (4.8-10.8)
[2020-07-18] MEDS: Lactated Ringer's 1,000 ML IV SCH ×4 (05:06→22:44)
[2020-07-18 05:30] LABS: ALT (SGPT) 143 U/L (8-55); AST (SGOT) 21 U/L (5-34); Albumin 2.6 g/dL (3.5-5.0); Alkaline Phosphatase 255 U/L (40-110); Anion Gap 11 mmol/L (10-20); BUN (Urea Nitrogen) 15 mg/dL (8.4-25.7); Bilirubin, Total 0.4 mg/dL (0.2-1.2); Calc. Creatinine Clearance 125 mL/min (70-130); Calcium 8.7 mg/dL (7.8-10.44); Carbon Dioxide 28 mmol/L (22-29); Chloride 100 mmol/L (98-107); Globulin 3.9 g/dL (2.4-3.5); Glucose 181 mg/dL (70-105); Potassium 4.3 mmol/L (3.5-5.1); Protein, Total 6.5 g/dL (6.0-8.3); Sodium 135 mmol/L (136-145)
[2020-07-18] MEDS: Mometasone 100 MCG/Formoterol 5 MCG 120 PUFF INHALER INH SCH ×2 (07:56→18:51)
[2020-07-18] MEDS: Benzonatate 100 MG CAP PO SCH ×3 (10:07→20:16)
[2020-07-18] MEDS: Lisinopril/Hydrochlorothiazide 20/25 mg Tablet PO SCH ×2 (10:07→10:49)
[2020-07-18] MEDS: guaiFENesin/DM ER PO SCH ×2 (10:07→20:17)
[2020-07-18] MEDS: Dexamethasone 4 MG TAB PO SCH (10:08)
[2020-07-18] MEDS: Enoxaparin Sodium 40 MG/0.4 ML SYRINGE SC SCH ×2 (10:08→20:17)
[2020-07-18] MEDS: Tamsulosin HCl 0.4 MG CAP PO SCH (10:11)
[2020-07-18] MEDS: FLUoxetine HCl 20 MG CAP PO SCH (10:11)
[2020-07-18] MEDS: Pantoprazole 40 MG VIAL IVP SCH (10:15)
[2020-07-18] MEDS: Insulin Glargine 40 UNITS in Pre-Filled Syringe 1 EACH SC SCH (10:18)
[2020-07-18] MEDS: HumaLOG 300 UNITS/3 ML VIAL SC SCH ×2 (10:18→11:27)
[2020-07-18] MEDS: Insulin Glargine 45 UNITS in Pre-Filled Syringe 1 EACH SC SCH (10:18)
--- NOTE | 2020-07-18 14:02 | PDOC.FM ---
- Subjective Subjective: Patient was intubated and sedated that the time of evaluation. No acute overnight events were reported by the Resident Night Team, and the patient's POC Glucose readings appear to have remained above previous hypoglycemic ranges. - Objective Vital Signs & Weight: Vital Signs (12 hours) Temp Pulse Resp BP 07/18/20 12:00 97.5 F L 07/18/20 11:53 88 111/63 07/18/20 10:49 89 137/92 H 07/18/20 10:00 07/18/20 08:00 96.8 F L 07/18/20 07:54 89 137/92 H 07/18/20 07:50 20 07/18/20 06:00 20 07/18/20 04:00 99.4 F 20 07/18/20 02:16 77 Weight Admit Weight 96.5 kg Weight 104 kg Most Recent Monitor Data Heart Rate from ECG 95 NIBP 128/89 NIBP BP-Mean 102 Respiration from ECG 16 SpO2 97 I&O: 07/17/20 07/18/20 07/19/20 06:59 06:59 06:59 Intake Total 5163.2 3101.7 784.9 Output Total 2530 3180 365 Balance 2633.2 -78.3 419.9 Result Diagrams: 07/19/20 04:20 07/19/20 03:30 Phys Exam - Physical Examination Constitutional: NAD HEENT: moist MMs Neck: no nodes, supple Course breath sounds Cardiovascular: RRR, no significant murmur, no rub Gastrointestinal: soft, non-tender, no distention, positive bowel sounds Musculoskeletal: no edema, pulses present Deviation from normal: Intubated and sedated Dx/Plan (1) CKD (chronic kidney disease) Code(s): N18.9 - CHRONIC KIDNEY DISEASE, UNSPECIFIED Status: Chronic (2) Acute respiratory failure with hypoxia Code(s): J96.01 - ACUTE RESPIRATORY FAILURE WITH HYPOXIA Status: Acute (3) COVID-19 Code(s): U07.1 - COVID-19 Status: Acute (4) Diabetes Code(s): E11.9 - TYPE 2 DIABETES MELLITUS WITHOUT COMPLICATIONS Status: Chronic (5) Hypertension Code(s): I10 - ESSENTIAL (PRIMARY) HYPERTENSION Status: Chronic (6) Bacterial pneumonia, unspecified Code(s): J15.9 - UNSPECIFIED BACTERIAL PNEUMONIA Status: Acute - Plan Plan: Patient is a 54 y/o male who presented to the ER for evaluation of SOB. #Acute Hypoxic Respiratory Failure 2/2 COVID-19 PNA, possible Bacterial PNA -Patient reports fluctuating symptoms that started on 06/26 - COVID(+) test on 06/28 -CXR: Worsening COVID PNA with vascular congestion -CTA Chest: Negative for PE, but diffuse ground glass opacities noted -Dexamethasone 6 mg IV daily -s/p Convalescent Plasma - unable to give Remdesivir due to WYATT/CKD -Initially on Lovenox 40 mg SC daily due to renal function - transitioned to BID dosing based on Anti-Factor Xa and improved renal function -s/p Vanc & Cefepime in ER, Ceftriaxone (07/04-07/08) and Azithromycin (07/04-07/08) -Procal: 2.42 with subsequent downward trend and spike to 4.23 on 07/17 after CODE GREEN -ABx initially dc'd as Procal downtrended - now on Meropenem -s/p CODE GREEN on 07/16 for worsening respiratory status, hypoglycemia and hypotension -Currently intubated and requiring BP support with Leveophed gtt - attempting to wean cautiously -Pulmonology: Consulted, recs appreciated - Meropenem started as per above following CODE GREEN -Respiratory Sputum Cx: Pending -Repeat BCx: Pending #Anxiety -Intermittent throughout hospitalization - manifests with intermittent tachycardia, tachypnea and feelings of air hunger -Hydroxyzine 50mg Q6H scheduled -Lorazepam 0.5mg Q6H scheduled -Continue Fluoxetine 20mg daily -Will attempt to optimize sedation in order to avoid hypotension #Hyponatremia, improved -Likely 2/2 WYATT on CKD, although transient SIADH is possible -Na: 128 > 134 > 135, no changes in mentation or evidence of seizure activity -Will continue to monitor with AM Labs #Intractable Hiccups, resolved -Gabapentin RADHA - currently held based on intubation -Compazine RDAHA - currently held based on intubation #WYATT on CKD, likely resolved -Baseline unknown but patient denies known Hx of CKD - reports decreased PO intake over the several days prior to admission due to coughing -Cr: 3.11 > 1.02 -GFR: 21 > 77 -Currently holding Metformin -Urine studies demonstrate an intrinsic disease process #Hypokalemia, resolved -K: 3.0 > 4.3 #Hypomagnesemia, resolved -M.5 > 1.7 #AG Metabolic Acidosis, resolved -Gap: 23 > 10 -Lactic Acid: 3.4 > 1.9 -Will continue to monitor #HTN -Initially on Lisinopril/HCTZ -Will hold antihypertensive regimen pending weaning of Levophed gtt #DM2 -A1C: 10.6 -Currently holding Metformin due to WYATT/CKD; reports he takes Trulicity weekly at "maximum dose" -Lantus 40u QAM, 45u QPM -SSI -Steroids are likely contributing to elevated POC Glucose readings -Will DC with weight-based long-acting insulin and encourage close follow-up with PCP in order to titrate appropriately following dc of steroids -Now that patient has resumed Tube Feedings, with continue to titrate insulin regimen PCP: Claude Code: Full Diet: Tube Feeds Activity: Bed Rest VTE PPx: Lovenox 40 mg SC BID GI PPx: Protonix Dispo: Patient is currently in critical condition in the ICU s/p intubation on 07/16 due to AHRF 2/2 COVID-19 Pneumonia with suspected bacterial component. Will continue Dexamethasone, Levophed and Lovenox as per above. Pulmonology consulted, recs appreciated. Will continue to monitor patient's POC Glucose readings and continue to adjust insulin regimen as required. Expected LOS > 48H. Addendum - Attending - Attending Attestation Date/Time: 07/19/20 0720 I personally evaluated the patient and discussed the management with Dr. Pinto yesterday. I agree with the History, Examination, Assessment and Plan documented above with any addition or exceptions noted below.
--- NOTE | 2020-07-18 16:30 | PRG ---
DATE OF SERVICE: 07/18/2020 OBJECTIVE: VITAL SIGNS: Mr. Celaya's heart rate is 60, blood pressure 104/74, FiO2 is at 40%. Intake and output is -78. LUNGS: Remarkable for equal breath sounds. HEART: Regular rate and rhythm. ABDOMEN: Soft. LABORATORY DATA: White count 16.5, hemoglobin 10.4, platelets 612. Electrolytes are unremarkable. IMPRESSION: 1. COVID pneumonia. 2. Respiratory failure. 3. Superimposed bacterial pneumonia? PLAN: Continue supportive care. weanable at this time. Critical care time 30 min. Job ID: [id number] MTDD
[2020-07-18] MEDS: HumaLOG 300 UNITS/3 ML VIAL SC PRN ×2 (17:49→21:12)
[2020-07-19] MEDS: Propofol 1,000 MG/100 ML VIAL IV PRN ×5 (00:17→16:44)
[2020-07-19] MEDS: Meropenem 2 GM, Admixture Fee 1 EACH in Sodium Chloride 0.9% 100 ML IVPB SCH ×3 (00:41→18:01)
[2020-07-19 05:43] LABS: ALT (SGPT) 90 U/L (8-55); AST (SGOT) 19 U/L (5-34); Albumin 2.3 g/dL (3.5-5.0); Alkaline Phosphatase 190 U/L (40-110); Anion Gap 12 mmol/L (10-20); BUN (Urea Nitrogen) 23 mg/dL (8.4-25.7); Bilirubin, Total 0.3 mg/dL (0.2-1.2); Calc. Creatinine Clearance 140 mL/min (70-130); Calcium 8.4 mg/dL (7.8-10.44); Carbon Dioxide 30 mmol/L (22-29); Chloride 98 mmol/L (98-107); Globulin 3.6 g/dL (2.4-3.5); Glucose 170 mg/dL (70-105); Potassium 4.6 mmol/L (3.5-5.1); Protein, Total 5.9 g/dL (6.0-8.3); Sodium 135 mmol/L (136-145)
[2020-07-19] MEDS ORDERED: Fentanyl CADD 100 ML ONE ×2 (06:19→20:26)
[2020-07-19] MEDS: HumaLOG 300 UNITS/3 ML VIAL SC PRN ×3 (06:25→21:40)
[2020-07-19] MEDS: Prochlorperazine Maleate 5 MG TAB PO SCH (06:32)
[2020-07-19] MEDS: Lactated Ringer's 1,000 ML IV SCH ×4 (06:32→18:01)
[2020-07-19 06:53] LABS: #Lymphocytes 1.7 thou/uL (1.20-3.40); #Neutrophils 12.3 thou/uL (1.40-6.50); %Basophils 0.3 % (0.0-1.0); %Eosinophils 0.3 % (0.0-10.0); %Lymphocytes 11.2 % (21.0-51.0); %Monocytes 6.8 % (0.0-10.0); %Neutrophils 81.4 % (42.0-75.0); Hemoglobin 9.8 g/dL (14.0-18.0); Mean Corpuscular HGB CONC 32.5 g/dL (32.0-36.0); Mean Corpuscular Hemoglobin 30.7 pg (27.0-31.0); Mean Corpuscular Volume 94.2 fL (78.0-98.0); Mean Platelet Volume 7.2 fL (7.4-10.4); Platelet Count 541 thou/uL (130-400); RBC Distribution Width 12.4 % (11.5-14.5); Red Blood Cell (RBC) Count 3.18 mill/uL (4.70-6.10); White Blood Cell (WBC) Count 15.1 thou/uL (4.8-10.8)
[2020-07-19] MEDS: Mometasone 100 MCG/Formoterol 5 MCG 120 PUFF INHALER INH SCH ×2 (07:36→18:44)
--- NOTE | 2020-07-19 07:54 | RAD ---
XR Chest 1 View Portable History: Ventilated patient Comparison: Radiograph 3 days prior Findings: Endotracheal tube tip at the clavicular level. Enteric tube tip below diaphragm although ou t of field of view. Airspace consolidation is similar. No pneumothorax. Impression: Similar examination of the chest without improved lung aeration. No pneumothorax or pneum omediastinum. Relative to the July 08, 2020 exam findings are also unchanged.
[2020-07-19] MEDS: Insulin Glargine 45 UNITS in Pre-Filled Syringe 1 EACH SC SCH (09:00)
[2020-07-19] MEDS: Insulin Glargine 40 UNITS in Pre-Filled Syringe 1 EACH SC SCH (09:00)
[2020-07-19] MEDS: Enoxaparin Sodium 40 MG/0.4 ML SYRINGE SC SCH ×2 (09:39→21:25)
[2020-07-19] MEDS: Dexamethasone 4 MG TAB PO SCH (09:39)
[2020-07-19] MEDS: FLUoxetine HCl 20 MG CAP PO SCH (09:39)
[2020-07-19] MEDS: Tamsulosin HCl 0.4 MG CAP PO SCH (09:39)
[2020-07-19] MEDS: hydrOXYzine 25 MG TAB PO SCH (09:40)
[2020-07-19] MEDS: Pantoprazole 40 MG VIAL IVP SCH (09:41)
[2020-07-19] MEDS: Lisinopril/Hydrochlorothiazide 20/25 mg Tablet PO SCH (09:45)
[2020-07-19] MEDS: Lorazepam 2 MG/ML VIAL SLOW IVP PRN (09:46)
[2020-07-19] MEDS: Benzonatate 100 MG CAP PO SCH (09:46)
[2020-07-19] MEDS: guaiFENesin/DM ER PO SCH ×2 (09:46→21:26)
--- NOTE | 2020-07-19 10:53 | PDOC.FM ---
- Subjective Subjective: Patient was intubated and sedated at the time of evaluation. Per Resident Night Team, patient's POC Glucose readings were elevated above goal, but stable and without episodes of severe hypoglycemia. - Objective Vital Signs & Weight: Vital Signs (12 hours) Temp Pulse Resp BP 07/19/20 10:35 73 07/19/20 09:45 59 L 83/47 L 07/19/20 07:37 61 07/19/20 06:00 20 07/19/20 05:13 56 L 07/19/20 04:00 99.1 F 20 07/19/20 02:00 20 07/19/20 00:39 68 07/19/20 00:00 99 F 07/18/20 22:55 63 Weight Admit Weight 96.5 kg Weight 104 kg Most Recent Monitor Data Heart Rate from ECG 67 NIBP 108/78 NIBP BP-Mean 88 Respiration from ECG 20 SpO2 98 I&O: 07/18/20 07/19/20 07/20/20 06:59 06:59 06:59 Intake Total 3101.7 3504.6 Output Total 3180 1475 Balance -78.3 2029.6 Result Diagrams: 07/19/20 04:20 07/19/20 03:30 Phys Exam - Physical Examination Constitutional: NAD HEENT: moist MMs Neck: supple Course breath sounds Cardiovascular: RRR, no significant murmur, no rub Gastrointestinal: soft, non-tender, no distention, positive bowel sounds Musculoskeletal: no edema, pulses present Intubated and sedated Dx/Plan (1) CKD (chronic kidney disease) Code(s): N18.9 - CHRONIC KIDNEY DISEASE, UNSPECIFIED Status: Chronic (2) Acute respiratory failure with hypoxia Code(s): J96.01 - ACUTE RESPIRATORY FAILURE WITH HYPOXIA Status: Acute (3) COVID-19 Code(s): U07.1 - COVID-19 Status: Acute (4) Diabetes Code(s): E11.9 - TYPE 2 DIABETES MELLITUS WITHOUT COMPLICATIONS Status: Chronic (5) Hypertension Code(s): I10 - ESSENTIAL (PRIMARY) HYPERTENSION Status: Chronic (6) Bacterial pneumonia, unspecified Code(s): J15.9 - UNSPECIFIED BACTERIAL PNEUMONIA Status: Acute - Plan Plan: Patient is a 54 y/o male who presented to the ER for evaluation of SOB. #AHRF 2/2 COVID-19 PNA, possible Bacterial PNA -Patient reports fluctuating symptoms that started on 06/26 - COVID(+) test on 06/28 -CXR: Worsening COVID PNA with vascular congestion -CTA Chest: Negative for PE, but diffuse ground glass opacities noted -Dexamethasone 6 mg IV daily -s/p Convalescent Plasma - unable to give Remdesivir due to WYATT/CKD -Initially on Lovenox 40 mg SC daily due to renal function - transitioned to BID dosing based on Anti-Factor Xa and improved renal function -s/p Vanc & Cefepime in ER, Ceftriaxone (07/04-07/08) and Azithromycin (07/04-07/08) -Procal: 2.42 with subsequent downward trend and spike to 4.23 on 07/17 after CODE GREEN -ABx initially dc'd as Procal downtrended - now on Meropenem -s/p CODE GREEN on 07/16 for worsening respiratory status, hypoglycemia and hypotension -Currently intubated and requiring BP support with Leveophed gtt - attempting to wean cautiously -Pulmonology: Consulted, recs appreciated - Meropenem started as per above following CODE GREEN -Respiratory Sputum Cx: Pending -Repeat BCx: Pending #Anxiety -Intermittent throughout hospitalization - manifests with intermittent tachycardia, tachypnea and feelings of air hunger -Hydroxyzine 50mg Q6H scheduled -Lorazepam 0.5mg Q6H scheduled -Continue Fluoxetine 20mg daily -Will attempt to optimize sedation in order to avoid hypotension #Hyponatremia, improved -Likely 2/2 WYATT on CKD, although transient SIADH is possible -Na: 128 > 134 > 135, no changes in mentation or evidence of seizure activity -Will continue to monitor with AM Labs #Intractable Hiccups, resolved -Gabapentin RADHA - currently held based on intubation -Compazine RADHA - currently held based on intubation #WYATT on CKD, likely resolved -Baseline unknown but patient denies known Hx of CKD - reports decreased PO intake over the several days prior to admission due to coughing -Cr: 3.11 > 1.02 -GFR: 21 > 77 -Currently holding Metformin -Urine studies demonstrate an intrinsic disease process #Hypokalemia, resolved -K: 3.0 > 4.3 #Hypomagnesemia, resolved -M.5 > 1.7 #AG Metabolic Acidosis, resolved -Gap: 23 > 10 -Lactic Acid: 3.4 > 1.9 -Will continue to monitor #HTN -Initially on Lisinopril/HCTZ -Will hold antihypertensive regimen pending weaning of Levophed gtt - currently running @ 2 mcg/min #DM2 -A1C: 10.6 -Currently holding Metformin due to WYATT/CKD; reports he takes Trulicity weekly at "maximum dose" -Previously on Lantus 40u QAM, 45u QPM - although this has been held at times based on episodes of hypoglycemia -Will gently restart Lantus @ 40u SC daily -Mild SSI -Q4H Accuchecks -Steroids are likely contributing to elevated POC Glucose readings although patient's DM2 is likely poorly controlled at baseline -Will DC with weight-based long-acting insulin and encourage close follow-up with PCP in order to titrate appropriately following dc of steroids PCP: Claude Code: Full Diet: Tube Feeds Activity: Bed Rest VTE PPx: Lovenox 40 mg SC BID GI PPx: Protonix Dispo: Patient is currently in critical condition in the ICU s/p intubation on 07/16 due to AHRF 2/2 COVID-19 Pneumonia with suspected bacterial component. Will continue Dexamethasone, Levophed and Lovenox as per above. Pulmonology consulted, recs appreciated. Will continue to monitor patient's POC Glucose readings and continue to adjust insulin regimen as required. Expected LOS > 48H. Addendum - Attending - Attending Attestation Date/Time: 07/19/20 [id number] I personally evaluated the patient and discussed the management with Dr. Pinto. I agree with the History, Examination, Assessment and Plan documented above with any addition or exceptions noted below.
--- NOTE | 2020-07-19 20:49 | PRG ---
DATE OF SERVICE: 07/19/2020 OBJECTIVE: VITAL SIGNS: Pavan Celaya was afebrile, respiratory rate is 22, oximetry is 97, FiO2 is down 40%, blood pressure 104/70. LUNGS: Remarkable for equal breath sounds. HEART: Regular rhythm. ABDOMEN: Soft. EXTREMITIES: Without edema. LABORATORY DATA: White count 15.1, hemoglobin 9.8, platelets 541. Sodium 135, potassium 4.6, chloride 98, bicarb 30, BUN 23, creatinine 0.9, glucose 170. IMPRESSION: Coronavirus disease pneumonia with respiratory failure with probable superimposed nosocomial infection leading to a rapid clinical decompensation. Chest radiograph today is unchanged. Overall, he appears to be clinically stabilizing more as the day he was intubated. He appeared to be progressing to a point where he would not survive. We will continue current care. CRITICAL CARE TIME: 30 minutes. Job ID: [id number]
[2020-07-20] MEDS: Meropenem 2 GM, Admixture Fee 1 EACH in Sodium Chloride 0.9% 100 ML IVPB SCH ×3 (01:23→17:52)
[2020-07-20 04:24] LABS: #Eosinphils 0.1 thou/uL (0.0-0.7); #Monocytes 0.8 thou/uL (0.11-0.59); #Neutrophils 10.9 thou/uL (1.40-6.50); %Basophils 0.2 % (0.0-1.0); %Eosinophils 0.7 % (0.0-10.0); %Lymphocytes 14.6 % (21.0-51.0); %Monocytes 5.9 % (0.0-10.0); %Neutrophils 78.6 % (42.0-75.0); Hemoglobin 10.3 g/dL (14.0-18.0); Mean Corpuscular HGB CONC 32.8 g/dL (32.0-36.0); Mean Corpuscular Hemoglobin 30.8 pg (27.0-31.0); Mean Corpuscular Volume 93.9 fL (78.0-98.0); Mean Platelet Volume 6.8 fL (7.4-10.4); Platelet Count 526 thou/uL (130-400); RBC Distribution Width 12.4 % (11.5-14.5); Red Blood Cell (RBC) Count 3.34 mill/uL (4.70-6.10); White Blood Cell (WBC) Count 13.9 thou/uL (4.8-10.8)
[2020-07-20] MEDS: Lorazepam 2 MG/ML VIAL SLOW IVP PRN (04:59)
[2020-07-20 05:36] LABS: ALT (SGPT) 60 U/L (8-55); AST (SGOT) 14 U/L (5-34); Albumin 2.3 g/dL (3.5-5.0); Alkaline Phosphatase 176 U/L (40-110); Anion Gap 13 mmol/L (10-20); BUN (Urea Nitrogen) 25 mg/dL (8.4-25.7); Bilirubin, Total 0.3 mg/dL (0.2-1.2); Calc. Creatinine Clearance 122 mL/min (70-130); Calcium 8.5 mg/dL (7.8-10.44); Carbon Dioxide 30 mmol/L (22-29); Chloride 97 mmol/L (98-107); Globulin 3.7 g/dL (2.4-3.5); Glucose 219 mg/dL (70-105); Potassium 4.3 mmol/L (3.5-5.1); Sodium 136 mmol/L (136-145)
[2020-07-20] MEDS: Lactated Ringer's 1,000 ML IV SCH ×2 (05:55→15:31)
[2020-07-20] MEDS: Mometasone 100 MCG/Formoterol 5 MCG 120 PUFF INHALER INH SCH ×2 (07:50→18:48)
--- NOTE | 2020-07-20 08:43 | PDOC.FM ---
- Subjective Subjective: Patient was intubated and sedated at the time of evaluation. No acute overnight events reported by Resident Night Team or Nursing Staff. - Objective Vital Signs & Weight: Vital Signs (12 hours) Temp Pulse Resp BP Pulse Ox 07/20/20 08:00 20 07/20/20 07:50 62 20 92 L 07/20/20 07:44 63 93/63 07/20/20 06:00 21 H 07/20/20 04:00 97.3 F L 20 07/20/20 02:00 20 07/20/20 01:25 52 L 07/20/20 00:00 97.6 F 20 07/19/20 22:35 49 L 07/19/20 22:00 20 Weight Admit Weight 96.5 kg Weight 104 kg Most Recent Monitor Data Heart Rate from ECG 74 NIBP 119/79 NIBP BP-Mean 92 Respiration from ECG 20 SpO2 94 I&O: 07/19/20 07/20/20 07/21/20 06:59 06:59 06:59 Intake Total 3504.6 3864.2 Output Total 1475 1980 Balance 2029.6 1884.2 Result Diagrams: 07/20/20 04:00 07/20/20 04:00 Phys Exam - Physical Examination Constitutional: NAD Non-purposeful movements HEENT: moist MMs Neck: supple Respiratory: no wheezing, no rales, no rhonchi, clear to auscultation bilateral Cardiovascular: RRR, no significant murmur, no rub Gastrointestinal: soft, non-tender, no distention, positive bowel sounds Musculoskeletal: no edema, pulses present Neurological: non-focal, moves all 4 limbs Dx/Plan (1) CKD (chronic kidney disease) Code(s): N18.9 - CHRONIC KIDNEY DISEASE, UNSPECIFIED Status: Chronic (2) Acute respiratory failure with hypoxia Code(s): J96.01 - ACUTE RESPIRATORY FAILURE WITH HYPOXIA Status: Acute (3) COVID-19 Code(s): U07.1 - COVID-19 Status: Acute (4) Diabetes Code(s): E11.9 - TYPE 2 DIABETES MELLITUS WITHOUT COMPLICATIONS Status: Chronic (5) Hypertension Code(s): I10 - ESSENTIAL (PRIMARY) HYPERTENSION Status: Chronic (6) Bacterial pneumonia, unspecified Code(s): J15.9 - UNSPECIFIED BACTERIAL PNEUMONIA Status: Acute - Plan Plan: Patient is a 54 y/o male who presented to the ER for evaluation of SOB. #AHRF 2/2 COVID-19 PNA, possible Bacterial PNA -Patient reports fluctuating symptoms that started on 06/26 - COVID(+) test on 06/28 -CXR: Worsening COVID PNA with vascular congestion -CTA Chest: Negative for PE, but diffuse ground glass opacities noted -Dexamethasone 6 mg IV daily -s/p Convalescent Plasma - unable to give Remdesivir due to WYATT/CKD -Initially on Lovenox 40 mg SC daily due to renal function - transitioned to BID dosing based on Anti-Factor Xa and improved renal function -s/p Vanc & Cefepime in ER, Ceftriaxone (07/04-07/08) and Azithromycin (07/04-07/08) -Procal: José Miguel to 4.23 on 07/17 after CODE GREEN - downtrended to 0.77 on 07/20 -ABx initially dc'd as Procal downtrended - now on Meropenem -s/p CODE GREEN on 07/16 for worsening respiratory status, hypoglycemia and hypotension -Currently intubated and requiring BP support with Leveophed gtt - attempting to wean cautiously -Pulmonology: Consulted, recs appreciated - Meropenem started as per above following CODE GREEN -Respiratory Sputum Cx: Normal Annelise -Repeat BCx: Pending #Anxiety -Intermittent throughout hospitalization - manifests with intermittent tachycardia, tachypnea and feelings of air hunger -Currently sedated with Midazolam gtt and Fentanyl due to hypotension with P ropafol - will continue to optimize -Continue Fluoxetine 20mg daily #Hyponatremia, improved -Likely 2/2 WYATT on CKD, although transient SIADH is possible -Na: 128 > 136, no changes in mentation or evidence of seizure activity -Will continue to monitor with AM Labs #Intractable Hiccups, resolved -Gabapentin RADHA - currently held based on intubation -Compazine RADHA - currently held based on intubation #WYATT on CKD, likely resolved -Baseline unknown but patient denies known Hx of CKD - reports decreased PO intake over the several days prior to admission due to coughing -Cr: 3.11 > 1.04 -GFR: 21 > 77 -Currently holding Metformin -Urine studies demonstrate an intrinsic disease process #Hypokalemia, resolved -K: 3.0 > 4.3 #Hypomagnesemia, resolved -M.5 > 1.7 #AG Metabolic Acidosis, resolved -Gap: 23 > 10 -Lactic Acid: 3.4 > 1.9 -Will continue to monitor #HTN -Initially on Lisinopril/HCTZ -Norepinephrine gtt dc'd overnight -Will continue to monitor pressures closely and restart medication as needed #DM2 -A1C: 10.6 -Currently holding Metformin due to WYATT/CKD; reports he takes Trulicity weekly at "maximum dose" -Previously on Lantus 40u QAM, 45u QPM - although this has been held at times based on episodes of hypoglycemia -Will gently restart Lantus @ 10u SC today -Moderate SSI -Q4H Accuchecks -Hypoglycemia Protocol -Steroids are likely contributing to elevated POC Glucose readings although patient's DM2 is likely poorly controlled at baseline -Will DC with weight-based long-acting insulin and encourage close follow-up with PCP in order to titrate appropriately following dc of steroids PCP: Claude Code: Full Diet: Tube Feeds Activity: Bed Rest VTE PPx: Lovenox 40 mg SC BID GI PPx: Protonix Dispo: Patient is currently in critical condition in the ICU s/p intubation on 07/16 due to AHRF 2/2 COVID-19 Pneumonia with suspected bacterial component. Will continue Dexamethasone, Meropenem and Lovenox as per above. Pulmonology consulted, recs appreciated. Will continue to monitor patient's POC Glucose readings and continue to adjust insulin regimen as required. Expected LOS > 48H. Addendum - Attending - Attending Attestation Date/Time: 07/20/20 9928 I personally evaluated the patient and discussed the management with Dr. Pinto. I agree with the History, Examination, Assessment and Plan documented above with any addition or exceptions noted below.
[2020-07-20] MEDS ORDERED: Insulin Glargine 10 UNITS in Pre-Filled Syringe 1 EACH SC SCH (09:00)
[2020-07-20] MEDS ORDERED: Pantoprazole 40 MG VIAL IVP SCH (09:00)
[2020-07-20] MEDS ORDERED: Pantoprazole 40 MG GRANULES PACKET PER TUBE SCH (09:00)
[2020-07-20] MEDS: Enoxaparin Sodium 40 MG/0.4 ML SYRINGE SC SCH ×2 (09:47→21:17)
[2020-07-20] MEDS: FLUoxetine HCl 20 MG CAP PO SCH (09:47)
[2020-07-20] MEDS: Dexamethasone 4 MG TAB PO SCH (09:47)
[2020-07-20] MEDS: Tamsulosin HCl 0.4 MG CAP PO SCH (09:47)
[2020-07-20] MEDS: guaiFENesin/DM ER PO SCH ×2 (09:48→21:18)
[2020-07-20] MEDS: Pantoprazole 40 MG VIAL IVP SCH (09:59)
[2020-07-20] MEDS: Lisinopril/Hydrochlorothiazide 20/25 mg Tablet PO SCH (10:01)
[2020-07-20] MEDS: HumaLOG 300 UNITS/3 ML VIAL SC PRN ×3 (11:00→21:27)
[2020-07-20] MEDS ORDERED: Fentanyl CADD 100 ML ONE ×2 (11:21→21:48)
[2020-07-20] MEDS: Fentanyl CADD 100 ML IV SCH (11:22)
[2020-07-20] MEDS: Morphine 2 MG/ML VIAL SLOW IVP PRN ×3 (11:34→23:23)
--- NOTE | 2020-07-20 18:33 | PRG ---
DATE OF SERVICE: 07/20/2020 SUBJECTIVE: Pavan Celaya remains mechanically ventilated. OBJECTIVE: VITAL SIGNS: Heart rate is in the 70s, blood pressure 99/70, respiratory rate is 20. LUNGS: Remarkable for coarse equal breath sounds. HEART: Regular rhythm. ABDOMEN: Soft. EXTREMITIES: Without edema. LABORATORY DATA: White count 13.9, hemoglobin 10.3, platelets 526. Sodium 136, potassium 4.3, chloride 97, bicarb 30, BUN 25, creatinine 1.04. IMPRESSION: 1. COVID-19 pneumonia. 2. Probable superimposed nosocomial infection leading to rapid clinical decompensation. We will continue current critical care management. His FiO2 has been stable at 40% to 45%. Job ID: [id number]
[2020-07-21] MEDS: Lactated Ringer's 1,000 ML IV SCH ×2 (01:00→12:15)
[2020-07-21] MEDS: Meropenem 2 GM, Admixture Fee 1 EACH in Sodium Chloride 0.9% 100 ML IVPB SCH ×3 (01:20→17:00)
[2020-07-21 04:29] LABS: #Eosinphils 0.2 thou/uL (0.0-0.7); #Lymphocytes 2.1 thou/uL (1.20-3.40); #Monocytes 0.8 thou/uL (0.11-0.59); #Neutrophils 10.3 thou/uL (1.40-6.50); %Basophils 0.3 % (0.0-1.0); %Eosinophils 1.2 % (0.0-10.0); %Lymphocytes 15.9 % (21.0-51.0); %Neutrophils 76.7 % (42.0-75.0); Hemoglobin 10.1 g/dL (14.0-18.0); Mean Corpuscular Hemoglobin 30.2 pg (27.0-31.0); Mean Corpuscular Volume 94.2 fL (78.0-98.0); Mean Platelet Volume 6.6 fL (7.4-10.4); Platelet Count 496 thou/uL (130-400); RBC Distribution Width 12.5 % (11.5-14.5); Red Blood Cell (RBC) Count 3.37 mill/uL (4.70-6.10); White Blood Cell (WBC) Count 13.5 thou/uL (4.8-10.8)
[2020-07-21] MEDS: HumaLOG 300 UNITS/3 ML VIAL SC PRN ×2 (04:51→22:18)
[2020-07-21 04:58] LABS: ALT (SGPT) 71 U/L (8-55); AST (SGOT) 28 U/L (5-34); Albumin 2.3 g/dL (3.5-5.0); Alkaline Phosphatase 167 U/L (40-110); Anion Gap 12 mmol/L (10-20); BUN (Urea Nitrogen) 27 mg/dL (8.4-25.7); Bilirubin, Total 0.3 mg/dL (0.2-1.2); Calc. Creatinine Clearance 134 mL/min (70-130); Calcium 8.2 mg/dL (7.8-10.44); Carbon Dioxide 29 mmol/L (22-29); Chloride 98 mmol/L (98-107); Globulin 3.7 g/dL (2.4-3.5); Glucose 212 mg/dL (70-105); Potassium 4.4 mmol/L (3.5-5.1); Sodium 135 mmol/L (136-145)
[2020-07-21] MEDS: Mometasone 100 MCG/Formoterol 5 MCG 120 PUFF INHALER INH SCH ×2 (08:32→18:43)
[2020-07-21] MEDS ORDERED: Insulin Glargine 20 UNITS in Pre-Filled Syringe 1 EACH SC SCH (08:40)
--- NOTE | 2020-07-21 08:46 | PDOC.FM ---
- Subjective Subjective: Patient was intubated and sedated at the time of evaluation. No acute overnight events were reported by the Resident Night Team or Nursing Staff, particularly with regard to patient's level of agitation, which has been problematic since arrival. - Objective Vital Signs & Weight: Vital Signs (12 hours) Temp Pulse Resp 07/21/20 08:33 73 07/21/20 06:00 20 07/21/20 04:00 98.2 F 07/21/20 02:00 20 07/21/20 01:53 69 07/21/20 00:00 98.2 F 07/20/20 23:08 66 07/20/20 22:00 22 H Weight Admit Weight 96.5 kg Weight 104 kg Most Recent Monitor Data Heart Rate from ECG 72 NIBP 101/71 NIBP BP-Mean 81 Respiration from ECG 20 SpO2 94 I&O: 07/20/20 07/21/20 07/22/20 06:59 06:59 06:59 Intake Total 3864.2 2622.5 Output Total 1980 1500 Balance 1884.2 1122.5 Result Diagrams: 07/22/20 04:20 07/22/20 04:20 Phys Exam - Physical Examination Constitutional: NAD HEENT: moist MMs Neck: supple Course breath sounds Cardiovascular: RRR, no significant murmur, no rub Gastrointestinal: soft, non-tender, no distention, positive bowel sounds Musculoskeletal: no edema, pulses present Neurological: non-focal Deviation from normal: Sedated Dx/Plan (1) CKD (chronic kidney disease) Code(s): N18.9 - CHRONIC KIDNEY DISEASE, UNSPECIFIED Status: Chronic (2) Acute respiratory failure with hypoxia Code(s): J96.01 - ACUTE RESPIRATORY FAILURE WITH HYPOXIA Status: Acute (3) COVID-19 Code(s): U07.1 - COVID-19 Status: Acute (4) Diabetes Code(s): E11.9 - TYPE 2 DIABETES MELLITUS WITHOUT COMPLICATIONS Status: Chronic (5) Hypertension Code(s): I10 - ESSENTIAL (PRIMARY) HYPERTENSION Status: Chronic (6) Bacterial pneumonia, unspecified Code(s): J15.9 - UNSPECIFIED BACTERIAL PNEUMONIA Status: Acute - Plan Plan: Patient is a 54 y/o male who presented to the ER for evaluation of SOB. #AHRF 2/2 COVID-19 PNA, possible secondary bacterial infection -Patient reports fluctuating symptoms that started on 06/26 - COVID(+) test on 06/28 -CXR: Worsening COVID PNA with vascular congestion -CTA Chest: Negative for PE, but diffuse ground glass opacities noted -Dexamethasone 6 mg IV daily -s/p Convalescent Plasma - unable to give Remdesivir due to WYATT/CKD -Initially on Lovenox 40 mg SC daily due to renal function - transitioned to BID dosing based on Anti-Factor Xa and improved renal function -s/p Vanc & Cefepime in ER, Ceftriaxone (07/04-07/08) and Azithromycin (07/04-07/08) -Procal: José Miguel to 4.23 on 07/17 after CODE GREEN - down-trended to 0.77 on 07/20 -ABx initially dc'd as Procal downtrended - now on Meropenem -s/p CODE GREEN on 07/16 for worsening respiratory status, hypoglycemia and hypotension -Currently intubated and requiring BP support with Leveophed gtt - attempting to wean cautiously -Pulmonology: Consulted, recs appreciated - Meropenem started as per above following CODE GREEN -Respiratory Sputum Cx: Normal Annelise -Repeat BCx: Pending #Anxiety -Intermittent throughout hospitalization - manifests with intermittent tachycardia, tachypnea and feelings of air hunger -Currently sedated with Midazolam gtt and Fentanyl due to hypotension with Propafol - will continue to optimize -Continue Fluoxetine 20mg daily #Hyponatremia, improved -Likely 2/2 WYATT on CKD, although transient SIADH is possible -Na: 128 > 136, no changes in mentation or evidence of seizure activity -Will continue to monitor with AM Labs #Intractable Hiccups, resolved -Gabapentin RADHA - currently held based on intubation -Compazine RADHA - currently held based on intubation #WYATT on CKD, likely resolved -Baseline unknown but patient denies known Hx of CKD - reports decreased PO intake over the several days prior to admission due to coughing -Cr: 3.11 > 0.95 -GFR: 21 > 77 -Currently holding Metformin -Urine studies demonstrate an intrinsic disease process #Hypokalemia, resolved -K: 3.0 > 4.3 #Hypomagnesemia, resolved -M.5 > 1.7 #AG Metabolic Acidosis, resolved -Gap: 23 > 10 -Lactic Acid: 3.4 > 1.9 -Will continue to monitor #HTN -Initially on Lisinopril/HCTZ - currently held -Norepinephrine gtt dc'd -Will continue to monitor pressures closely and restart medication as needed #DM2 -A1C: 10.6 -Currently holding Metformin due to WYATT/CKD; reports he takes Trulicity weekly at "maximum dose" -Previously on Lantus 40u QAM, 45u QPM - although this has been held at times based on episodes of hypoglycemia -Will gently increase Lantus 20u SC QAM -Moderate SSI -Q4H Accuchecks -Hypoglycemia Protocol -Steroids are likely contributing to elevated POC Glucose readings although patient's DM2 is likely poorly controlled at baseline -Will DC with weight-based long-acting insulin and encourage close follow-up with PCP in order to titrate appropriately following dc of steroids PCP: Claude Code: Full Diet: Tube Feeds Activity: Bed Rest VTE PPx: Lovenox 40 mg SC BID GI PPx: Protonix Dispo: Patient is currently in critical condition in the ICU s/p intubation on 07/16 due to AHRF 2/2 COVID-19 Pneumonia with suspected bacterial component. Will continue Dexamethasone, Meropenem and Lovenox as per above. Pulmonology consulted, recs appreciated. Will continue to monitor patient's POC Glucose readings and continue to adjust insulin regimen as required. Expected LOS > 48H. Addendum - Attending - Attending Attestation Date/Time: 07/22/20 0698 I personally evaluated the patient and discussed the management with Dr. Pinto yesterday. I agree with the History, Examination, Assessment and Plan documented above with any addition or exceptions noted below.
[2020-07-21] MEDS: Dexamethasone 4 MG TAB PO SCH (08:59)
[2020-07-21] MEDS: Tamsulosin HCl 0.4 MG CAP PO SCH (08:59)
[2020-07-21] MEDS: Enoxaparin Sodium 40 MG/0.4 ML SYRINGE SC SCH ×2 (08:59→20:55)
[2020-07-21] MEDS: FLUoxetine HCl 20 MG CAP PO SCH (08:59)
[2020-07-21] MEDS ORDERED: Pantoprazole 40 MG GRANULES PACKET PER TUBE SCH (09:00)
[2020-07-21] MEDS: Pantoprazole 40 MG VIAL IVP SCH (09:00)
[2020-07-21] MEDS: Fentanyl CADD 100 ML IV SCH ×2 (09:01→21:46)
--- NOTE | 2020-07-21 09:21 | RAD ---
PORTABLE CHEST: HISTORY: Followup COVID pneumonia. Respiratory distress. COMPARISON: 07/19/2020 exam. FINDINGS: Heart size is within normal limits. Endotracheal and NG tubes are in satisfactory position. Right-s ided central line is present. IMPRESSION: Stable bilateral parenchymal lung changes. Stable overall chest. POS: RADHA
[2020-07-21] MEDS: Lisinopril/Hydrochlorothiazide 20/25 mg Tablet PO SCH (11:03)
[2020-07-21] MEDS: Morphine 2 MG/ML VIAL SLOW IVP PRN ×2 (11:12→20:55)
[2020-07-21] MEDS: Lorazepam 2 MG/ML VIAL SLOW IVP PRN ×3 (11:12→20:55)
--- NOTE | 2020-07-21 14:10 | PRG ---
DATE OF SERVICE: 07/21/2020 OBJECTIVE: VITAL SIGNS: Blood pressure 116/79, heart rate 79, respiratory rate 21, oximetry is 94%. His pressure settings are 32/10. His exhaled tidal volume is 380 mL. LUNGS: Remarkable for equal breath sounds. HEART: Regular rhythm. ABDOMEN: Soft. EXTREMITIES: Without asymmetry. LABORATORY DATA: White count 13.5, hemoglobin 10.1, platelets 496. Sodium 135, potassium 4.4, chloride 98, bicarb 29, BUN 27, creatinine 0.95. IMPRESSION: COVID pneumonia, respiratory failure, still with very poor lung compliance. tracheostomy if he remains stable next week. Critical care time 30 min. Job ID: [id number] [id number]
[2020-07-21] MEDS: guaiFENesin/DM ER PO SCH ×2 (16:03→20:55)
[2020-07-21] MEDS ORDERED: Fentanyl CADD 100 ML ONE (21:37)
[2020-07-22] MEDS: Lactated Ringer's 1,000 ML IV SCH ×2 (00:04→09:15)
[2020-07-22] MEDS: Lorazepam 2 MG/ML VIAL SLOW IVP PRN ×4 (00:38→11:07)
[2020-07-22] MEDS: Morphine 2 MG/ML VIAL SLOW IVP PRN ×3 (00:38→06:30)
[2020-07-22] MEDS: Meropenem 2 GM, Admixture Fee 1 EACH in Sodium Chloride 0.9% 100 ML IVPB SCH ×3 (00:38→17:44)
[2020-07-22 04:57] LABS: #Basophils 0.1 thou/uL (0.0-0.2); #Eosinphils 0.4 thou/uL (0.0-0.7); #Lymphocytes 2.4 thou/uL (1.20-3.40); #Monocytes 0.9 thou/uL (0.11-0.59); #Neutrophils 12.5 thou/uL (1.40-6.50); %Basophils 0.3 % (0.0-1.0); %Eosinophils 2.7 % (0.0-10.0); %Lymphocytes 14.6 % (21.0-51.0); %Monocytes 5.6 % (0.0-10.0); %Neutrophils 76.8 % (42.0-75.0); Hemoglobin 10.4 g/dL (14.0-18.0); Mean Corpuscular HGB CONC 32.8 g/dL (32.0-36.0); Mean Corpuscular Hemoglobin 30.8 pg (27.0-31.0); Mean Corpuscular Volume 94.1 fL (78.0-98.0); Mean Platelet Volume 6.7 fL (7.4-10.4); Platelet Count 493 thou/uL (130-400); RBC Distribution Width 12.5 % (11.5-14.5); Red Blood Cell (RBC) Count 3.37 mill/uL (4.70-6.10); White Blood Cell (WBC) Count 16.2 thou/uL (4.8-10.8)
[2020-07-22 05:31] LABS: ALT (SGPT) 87 U/L (8-55); AST (SGOT) 36 U/L (5-34); Albumin 2.4 g/dL (3.5-5.0); Alkaline Phosphatase 168 U/L (40-110); Anion Gap 13 mmol/L (10-20); BUN (Urea Nitrogen) 27 mg/dL (8.4-25.7); Bilirubin, Total 0.3 mg/dL (0.2-1.2); Calc. Creatinine Clearance 161 mL/min (70-130); Calcium 8.4 mg/dL (7.8-10.44); Carbon Dioxide 29 mmol/L (22-29); Chloride 97 mmol/L (98-107); Globulin 3.8 g/dL (2.4-3.5); Glucose 132 mg/dL (70-105); Protein, Total 6.2 g/dL (6.0-8.3); Sodium 135 mmol/L (136-145)
[2020-07-22] MEDS ORDERED: Insulin Glargine 25 UNITS in Pre-Filled Syringe 1 EACH SC SCH (06:55)
--- NOTE | 2020-07-22 07:03 | PDOC.FM ---
- Subjective Subjective: Patient was intubated and sedated at the time of evaluation. No acute overnight events were reported by the Resident Night Team or Nursing Staff. - Objective Vital Signs & Weight: Vital Signs (12 hours) Temp Pulse Resp BP Pulse Ox 07/22/20 06:00 24 H 07/22/20 04:00 99.6 F 24 H 07/22/20 02:29 76 109/71 07/22/20 02:00 27 H 07/22/20 00:00 99.0 F 25 H 07/21/20 22:06 80 115/77 07/21/20 22:00 23 H 07/21/20 20:00 98.9 F 20 93 L Weight Admit Weight 96.5 kg Weight 104 kg Most Recent Monitor Data Heart Rate from ECG 92 NIBP 127/81 NIBP BP-Mean 96 Respiration from ECG 26 SpO2 91 I&O: 07/20/20 07/21/20 07/22/20 06:59 06:59 06:59 Intake Total 3864.2 2622.5 3676 Output Total 1980 1500 2672 Balance 1884.2 1122.5 1004 Result Diagrams: 07/22/20 04:20 07/22/20 04:20 Phys Exam - Physical Examination Constitutional: NAD HEENT: moist MMs Course breath sounds Cardiovascular: RRR, no significant murmur, no rub Gastrointestinal: soft, non-tender, no distention, positive bowel sounds Musculoskeletal: no edema, pulses present Deviation from normal: Sedated Dx/Plan (1) CKD (chronic kidney disease) Code(s): N18.9 - CHRONIC KIDNEY DISEASE, UNSPECIFIED Status: Chronic (2) Acute respiratory failure with hypoxia Code(s): J96.01 - ACUTE RESPIRATORY FAILURE WITH HYPOXIA Status: Acute (3) COVID-19 Code(s): U07.1 - COVID-19 Status: Acute (4) Diabetes Code(s): E11.9 - TYPE 2 DIABETES MELLITUS WITHOUT COMPLICATIONS Status: Chronic (5) Hypertension Code(s): I10 - ESSENTIAL (PRIMARY) HYPERTENSION Status: Chronic (6) Bacterial pneumonia, unspecified Code(s): J15.9 - UNSPECIFIED BACTERIAL PNEUMONIA Status: Acute - Plan Plan: Patient is a 54 y/o male who presented to the ER for evaluation of SOB. #AHRF 2/2 COVID-19 PNA, possible secondary bacterial infection -Patient reports fluctuating symptoms that started on 06/26 - COVID(+) test on 06/28 -CXR: Worsening COVID PNA with vascular congestion -CTA Chest: Negative for PE, but diffuse ground glass opacities noted -Dexamethasone 6 mg IV daily -s/p Convalescent Plasma - unable to give Remdesivir due to WYATT/CKD -Initially on Lovenox 40 mg SC daily due to renal function - transitioned to BID dosing based on Anti-Factor Xa and improved renal function -s/p Vanc & Cefepime in ER, Ceftriaxone (07/04-07/08) and Azithromycin (07/04-07/08) -Procal: José Miguel to 4.23 on 07/17 after CODE GREEN - down-trended to 0.3 on 07/22 - will dc -ABx initially dc'd as Procal downtrended - now on Meropenem -s/p CODE GREEN on 07/16 for worsening respiratory status, hypoglycemia and hypotension -Currently intubated and requiring BP support with Leveophed gtt - attempting to wean cautiously -Pulmonology: Consulted, recs appreciated - Meropenem started as per above following CODE GREEN -Respiratory Sputum Cx: Normal Annelise -Repeat BCx: NGTD #Anxiety -Intermittent throughout hospitalization - manifests with intermittent tachycardia, tachypnea and feelings of air hunger -Currently sedated with Midazolam gtt and Fentanyl due to hypotension with Propofol - will continue to optimize -Continue Fluoxetine 20mg daily #Hyponatremia, improved -Likely 2/2 WYATT on CKD, although transient SIADH is possible -Na: 128 > 135, no changes in mentation or evidence of seizure activity -Will continue to monitor with AM Labs #Intractable Hiccups, resolved -Gabapentin RADHA - currently held based on intubation -Compazine RADHA - currently held based on intubation #WYATT on CKD, likely resolved -Baseline unknown but patient denies known Hx of CKD - reports decreased PO intake over the several days prior to admission due to coughing -Cr: 3.11 > 0.79 -GFR: 21 > Above 90 -Currently holding Metformin -Urine studies demonstrate an intrinsic disease process #Hypokalemia, resolved -K: 3.0 > 4.3 #Hypomagnesemia, resolved -M.5 > 1.7 #AG Metabolic Acidosis, resolved -Gap: 23 > 10 -Lactic Acid: 3.4 > 1.9 -Will continue to monitor #HTN -Initially on Lisinopril/HCTZ - currently held -Norepinephrine gtt dc'd -Will continue to monitor pressures closely and restart medication as needed #DM2 -A1C: 10.6 -Currently holding Metformin due to WYATT/CKD; reports he takes Trulicity weekly at "maximum dose" -Previously on Lantus 40u QAM, 45u QPM - although this has been held at times based on episodes of hypoglycemia -Will gently increase Lantus to 25u SC QAM -Moderate SSI -Q4H Accuchecks -Hypoglycemia Protocol -Steroids are likely contributing to elevated POC Glucose readings although patient's DM2 is likely poorly controlled at baseline -Will DC with weight-based long-acting insulin and encourage close follow-up with PCP in order to titrate appropriately following dc of steroids PCP: Claude Code: Full Diet: Tube Feeds Activity: Bed Rest VTE PPx: Lovenox 40 mg SC BID GI PPx: Protonix Dispo: Patient is currently in critical condition in the ICU s/p intubation on 07/16 due to AHRF 2/2 COVID-19 Pneumonia with suspected bacterial component. Will continue Dexamethasone, Meropenem and Lovenox as per above. Pulmonology consulted, recs appreciated. Will continue to monitor patient's POC Glucose readings and continue to adjust insulin regimen as required. Expected LOS > 48H. Addendum - Attending - Attending Attestation Date/Time: 07/22/20 8955 I personally evaluated the patient and discussed the management with Dr. Pinto. I agree with the History, Examination, Assessment and Plan documented above with any addition or exceptions noted below. Patient remains on the vent. continue supportive care.
[2020-07-22] MEDS ORDERED: Fentanyl 100 MCG/2 ML VIAL ONE (07:45)
[2020-07-22] MEDS: Fentanyl CADD 100 ML IV SCH ×2 (08:01→18:15)
[2020-07-22] MEDS: Mometasone 100 MCG/Formoterol 5 MCG 120 PUFF INHALER INH SCH ×2 (08:07→18:44)
--- NOTE | 2020-07-22 08:49 | RAD ---
EXAM: CHEST ONE VIEW HISTORY: On ventilator. Follow-up evaluation. COMPARISON: 07/21/2020 FINDINGS: Lines and tubes are stable in position. Extensive bilateral interstitial and alveolar parenchymal air space opacities are seen throughout the lungs bilaterally again greater on the left, and airspace opacities do appear mildly increased in the left upper lung zone. No other interval change. IMPRESSION: Extensive bilateral interstitial and parenchymal airspace opacities again greater on the left suggest ing Covid pneumonia. Airspace opacities in the left upper lung zone do appear mildly increased from prior exam.
[2020-07-22] MEDS: Dexamethasone 4 MG TAB PO SCH (09:10)
[2020-07-22] MEDS: Enoxaparin Sodium 40 MG/0.4 ML SYRINGE SC SCH (09:11)
[2020-07-22] MEDS: FLUoxetine HCl 20 MG CAP PO SCH (09:11)
[2020-07-22] MEDS: Tamsulosin HCl 0.4 MG CAP PO SCH (09:11)
[2020-07-22] MEDS: Polyethylene Glycol 3350 17 GM Packet PER TUBE SCH (09:12)
[2020-07-22] MEDS: Pantoprazole 40 MG VIAL IVP SCH (09:12)
[2020-07-22] MEDS: Lisinopril/Hydrochlorothiazide 20/25 mg Tablet PO SCH (09:13)
[2020-07-22] MEDS: guaiFENesin/DM ER PO SCH ×2 (09:19→20:40)
--- NOTE | 2020-07-22 12:02 | PRG ---
DATE OF SERVICE: 07/22/2020 35 minutes critical care time. SUBJECTIVE: The patient remains intubated on mechanical ventilation on bilevel mode. OBJECTIVE: VITAL SIGNS: His temperature is 99.6, pulse 107, blood pressure 115/72, O2 saturations 97%. HEENT: Unremarkable. NECK: No JVD. LUNGS: Bilateral crackles. ABDOMEN: Soft and nontender. EXTREMITIES: Edematous. LABORATORY DATA: White blood cell count 16.2, hematocrit 31.7, platelet count 493. Sodium 135, potassium 4.0, chloride 97, CO2 of 29, BUN 27, creatinine 0.7, glucose 132. His x-ray shows bilateral infiltrates. ASSESSMENT: 1. COVID-19 pneumonia. 2. Acute respiratory failure. 3. Ventilator dyssynchrony. PLAN: We will go ahead and paralyze the patient. I will increase his anticoagulation. He is not weanable at this time. Job ID: [id number]
[2020-07-22] MEDS ORDERED: Sterile Water 20 ML ONE (12:06)
[2020-07-22] MEDS: Vecuronium 10 MG VIAL IV PRN ×2 (12:08→20:39)
[2020-07-22] MEDS: Cholecalciferol 1,000 UNITS (25 MCG) TAB PER TUBE SCH (20:39)
[2020-07-22] MEDS: Dexamethasone 4 mg/ml Vial SLOW IVP SCH (20:40)
[2020-07-22] MEDS: Apixaban 5 MG TAB PER TUBE SCH (20:40)
[2020-07-22] MEDS: HumaLOG 300 UNITS/3 ML VIAL SC PRN (22:28)
[2020-07-23] MEDS: Meropenem 2 GM, Admixture Fee 1 EACH in Sodium Chloride 0.9% 100 ML IVPB SCH ×3 (00:26→18:08)
[2020-07-23] MEDS: Vecuronium 10 MG VIAL IV PRN ×8 (02:27→20:35)
[2020-07-23] MEDS: Lorazepam 2 MG/ML VIAL SLOW IVP PRN (03:07)
[2020-07-23 04:45] LABS: #Lymphocytes 0.9 thou/uL (1.20-3.40); #Monocytes 0.5 thou/uL (0.11-0.59); #Neutrophils 13.5 thou/uL (1.40-6.50); %Basophils 0.2 % (0.0-1.0); %Eosinophils 0.3 % (0.0-10.0); %Monocytes 3.2 % (0.0-10.0); %Neutrophils 90.4 % (42.0-75.0); Hemoglobin 10.2 g/dL (14.0-18.0); Mean Corpuscular HGB CONC 32.7 g/dL (32.0-36.0); Mean Corpuscular Hemoglobin 30.8 pg (27.0-31.0); Mean Corpuscular Volume 94.1 fL (78.0-98.0); Mean Platelet Volume 6.7 fL (7.4-10.4); Platelet Count 457 thou/uL (130-400); RBC Distribution Width 12.7 % (11.5-14.5); White Blood Cell (WBC) Count 14.9 thou/uL (4.8-10.8)
[2020-07-23 05:06] LABS: ALT (SGPT) 106 U/L (8-55); AST (SGOT) 33 U/L (5-34); Albumin 2.3 g/dL (3.5-5.0); Alkaline Phosphatase 180 U/L (40-110); Anion Gap 10 mmol/L (10-20); BUN (Urea Nitrogen) 28 mg/dL (8.4-25.7); Bilirubin, Total 0.4 mg/dL (0.2-1.2); Calc. Creatinine Clearance 159 mL/min (70-130); Calcium 8.3 mg/dL (7.8-10.44); Carbon Dioxide 33 mmol/L (22-29); Chloride 93 mmol/L (98-107); Globulin 3.9 g/dL (2.4-3.5); Glucose 218 mg/dL (70-105); Potassium 4.6 mmol/L (3.5-5.1); Protein, Total 6.2 g/dL (6.0-8.3); Sodium 131 mmol/L (136-145)
[2020-07-23] MEDS: HumaLOG 300 UNITS/3 ML VIAL SC PRN ×2 (05:43→22:33)
[2020-07-23] MEDS ORDERED: Fentanyl CADD 100 ML ONE (05:57)
[2020-07-23] MEDS: Fentanyl CADD 100 ML IV SCH ×2 (05:59→18:08)
--- NOTE | 2020-07-23 06:08 | PDOC.FM ---
- Subjective Subjective: Patient was intubated and sedated at the time of evaluation. No acute overnight events were reported by the Resident Night Team or Nursing Staff. - Objective Vital Signs & Weight: Vital Signs (12 hours) Temp Pulse Resp BP Pulse Ox 07/23/20 04:00 97.6 F 21 H 07/23/20 02:10 64 90/65 07/23/20 02:00 22 H 07/23/20 00:00 97.4 F L 21 H 07/22/20 23:47 62 92/67 07/22/20 22:05 64 98/69 07/22/20 22:00 23 H 07/22/20 20:00 22 H 100 07/22/20 19:00 97.6 F 07/22/20 18:44 75 91/64 Weight Admit Weight 96.5 kg Weight 104 kg Most Recent Monitor Data Heart Rate from ECG 74 NIBP 87/59 NIBP BP-Mean 68 Respiration from ECG 22 SpO2 99 I&O: 07/21/20 07/22/20 07/23/20 06:59 06:59 06:59 Intake Total 2622.5 3676 1870.75 Output Total 1500 2672 1620 Balance 1122.5 1004 250.75 Result Diagrams: 07/23/20 04:20 07/23/20 13:51 Phys Exam - Physical Examination Constitutional: NAD HEENT: moist MMs Neck: supple Course breath sounds Cardiovascular: RRR, no significant murmur, no rub Gastrointestinal: soft, non-tender, no distention, positive bowel sounds Musculoskeletal: no edema, pulses present Deviation from normal: Intubated and sedated Dx/Plan (1) CKD (chronic kidney disease) Code(s): N18.9 - CHRONIC KIDNEY DISEASE, UNSPECIFIED Status: Chronic (2) Acute respiratory failure with hypoxia Code(s): J96.01 - ACUTE RESPIRATORY FAILURE WITH HYPOXIA Status: Acute (3) COVID-19 Code(s): U07.1 - COVID-19 Status: Acute (4) Diabetes Code(s): E11.9 - TYPE 2 DIABETES MELLITUS WITHOUT COMPLICATIONS Status: Chronic (5) Hypertension Code(s): I10 - ESSENTIAL (PRIMARY) HYPERTENSION Status: Chronic (6) Bacterial pneumonia, unspecified Code(s): J15.9 - UNSPECIFIED BACTERIAL PNEUMONIA Status: Acute - Plan Plan: Patient is a 54 y/o male who presented to the ER for evaluation of SOB. #AHRF 2/ COVID-19 PNA, possible secondary bacterial infection -Patient reports fluctuating symptoms that started on 06/26 - COVID(+) test on 06/28 -CXR: Worsening COVID PNA with vascular congestion -CTA Chest: Negative for PE, but diffuse ground glass opacities noted -Dexamethasone 6 mg IV daily -s/p Convalescent Plasma - unable to give Remdesivir due to WYATT/CKD -Initially on Lovenox 40 mg SC daily due to renal function - transitioned to BID dosing based on Anti-Factor Xa and improved renal function -s/p Vanc & Cefepime in ER, Ceftriaxone (07/04-07/08) and Azithromycin (07/04-07/08) -s/p CODE GREEN on 07/16 for worsening respiratory status, hypoglycemia and hypotension -Procal: José Miguel to 4.23 on 07/17 after CODE GREEN - down-trended to 0.3 on 07/22 - will dc daily draws -ABx initially dc'd as Procal downtrended - now on Meropenem s/p CODE GREEN -Currently intubated and sedated with Midazolam gtt, Fentanyl and Vecuronium -Pulmonology: Consulted, recs appreciated - Meropenem started as per above following CODE GREEN -Respiratory Sputum Cx: Normal Annelise -Repeat BCx: NGTD -Bi-Level Ventilation: 32/10 w/ FiO2 of 85% - overall O2 support increasing #Anxiety -Intermittent throughout hospitalization - manifests with intermittent tachycardia, tachypnea and feelings of air hunger -Currently sedated with Midazolam gtt, Fentanyl and Vecuronium due to hypotension with Propofol - will continue to optimize -Continue Fluoxetine 20mg daily #Hyponatremia, intermittent -Likely 2/2 WYATT on CKD, although transient SIADH is possible -Na: 128 > 135 - down to 131 on 07/23 - no changes in mentation or evidence of seizure activity -Will administer NaCl per tube and recheck BMP @ 1400 - will consider Hypertonic Saline bolus if does no autocorrection -Will continue to monitor with AM Labs #Intractable Hiccups, resolved -Gabapentin RADHA - currently held based on intubation -Compazine RADHA - currently held based on intubation #WYATT on CKD, resolved -Baseline unknown but patient denies known Hx of CKD - reports decreased PO intake over the several days prior to admission due to coughing -Cr: 3.11 > 0.79 -GFR: 21 > Above 90 -Currently holding Metformin -Urine studies demonstrate an intrinsic disease process #Hypokalemia, resolved -K: 3.0 > 4.3 #Hypomagnesemia, resolved -M.5 > 1.7 #AG Metabolic Acidosis, resolved -Gap: 23 > 10 -Lactic Acid: 3.4 > 1.9 -Will continue to monitor #HTN -Initially on Lisinopril/HCTZ - currently held -Norepinephrine gtt dc'd -Will continue to monitor pressures closely and restart medication as needed #DM2 -A1C: 10.6 -Currently holding Metformin due to WYATT/CKD; reports he takes Trulicity weekly at "maximum dose" -Previously on Lantus 40u QAM, 45u QPM - although this has been held at times based on episodes of hypoglycemia -Will gently increase Lantus to 30u SC QAM -Moderate SSI -Q4H Accuchecks -Hypoglycemia Protocol -Steroids are likely contributing to elevated POC Glucose readings although patient's DM2 is likely poorly controlled at baseline -Will DC with weight-based long-acting insulin and encourage close follow-up with PCP in order to titrate appropriately following dc of steroids PCP: Claude Code: Full Diet: Tube Feeds Activity: Bed Rest VTE PPx: Lovenox 40 mg SC BID GI PPx: Protonix Dispo: Patient is currently in critical condition in the ICU s/p intubation on 07/16 due to AHRF 2/2 COVID-19 Pneumonia with suspected bacterial component. Will continue Dexamethasone, Meropenem and Lovenox as per above. Pulmonology consulted, recs appreciated. Will continue to monitor patient's POC Glucose readings and continue to adjust insulin regimen as required, as well as other electrolyte abnormalities as per above. Will discuss discontinuing COVID-19 Precautions with Funding Analyst today based on patient's length of hospitalization. Expected LOS > 48H. Addendum - Attending - Attending Attestation Date/Time: 07/23/20 5031 I personally evaluated the patient and discussed the management with Dr. Anthony oviedo. I agree with the History, Examination, Assessment and Plan documented above with any addition or exceptions noted below. Condition remains guarded. Vent mgmt per pulm. Trending sodium, if decreases further, will need fluids adjusted.
[2020-07-23] MEDS ORDERED: Sodium Chloride 1 GM TAB PER TUBE SCH ×2 (07:00→16:45)
[2020-07-23] MEDS: Mometasone 100 MCG/Formoterol 5 MCG 120 PUFF INHALER INH SCH ×2 (07:26→18:27)
[2020-07-23] MEDS: Senokot S 8.6-50 MG TAB PER TUBE SCH ×2 (08:27→20:35)
[2020-07-23] MEDS: Pantoprazole 40 MG VIAL IVP SCH (08:27)
[2020-07-23] MEDS: Apixaban 5 MG TAB PER TUBE SCH ×2 (08:27→20:36)
[2020-07-23] MEDS: FLUoxetine HCl 20 MG CAP PO SCH (08:27)
[2020-07-23] MEDS: Dexamethasone 4 mg/ml Vial SLOW IVP SCH ×2 (08:27→20:35)
[2020-07-23] MEDS: Polyethylene Glycol 3350 17 GM Packet PER TUBE SCH (08:27)
[2020-07-23] MEDS: Ascorbic Acid 500 mg Chewable Tablet PER TUBE SCH (08:27)
[2020-07-23] MEDS: guaiFENesin/DM ER PO SCH ×2 (08:28→20:36)
[2020-07-23] MEDS ORDERED: Sterile Water 10 ML ONE ×3 (08:50→14:22)
[2020-07-23] MEDS: Lisinopril/Hydrochlorothiazide 20/25 mg Tablet PO SCH (08:53)
[2020-07-23] MEDS ORDERED: Insulin Glargine 30 UNITS in Pre-Filled Syringe 1 EACH SC SCH (09:00)
--- NOTE | 2020-07-23 09:43 | RAD ---
XR Chest 1 View Portable History: Ventilated patient Comparison: Radiograph prior day Findings: Endotracheal tube tip above the alice 3 cm. Right IJ central venous catheter tip inferior SVC. Heart size is enlarged. Perihilar and peripheral airspace opacities. No pneumothorax. No pneumomediastinum. Impression: Similar examination the chest without improved lung aeration. No pneumothorax or pneumome diastinum. Relative to 1 week prior chest radiograph, findings are also similar.
--- NOTE | 2020-07-23 13:04 | PRG ---
DATE OF SERVICE: 07/23/2020 35 minutes of critical care time. SUBJECTIVE: The patient remains intubated on mechanical ventilation. He is requiring substantially deeper sedation than yesterday. OBJECTIVE: VITAL SIGNS: His temperature is 97.4, pulse 106, blood pressure 148/84, O2 saturation 98%. 24-hour intake 2050 and output 1740. HEENT: Unremarkable. NECK: No adenopathy or JVD. LUNGS: Clear to auscultation. CARDIAC: S1 and S2. Regular. ABDOMEN: Soft. EXTREMITIES: No edema. LABORATORY DATA: White blood cell count 14.9, hematocrit 31.1, and platelet count 457. Sodium 131, potassium 4.6, chloride 93, CO2 of 33, BUN 28, creatinine 0.8, glucose 218. X-ray shows diffuse bilateral infiltrates. ASSESSMENT: 1. COVID-19 pneumonia. 2. Acute respiratory failure. PLAN: 1. Slowly wean FiO2 as tolerated. Down to 80% currently. 2. Continue anticoagulation and steroids. Job ID: [id number]
[2020-07-23] MEDS: Morphine 2 MG/ML VIAL SLOW IVP PRN ×2 (13:58→15:03)
[2020-07-23 14:18] LABS: Anion Gap 15 mmol/L (10-20); BUN (Urea Nitrogen) 27 mg/dL (8.4-25.7); Calc. Creatinine Clearance 144 mL/min (70-130); Calcium 8.7 mg/dL (7.8-10.44); Carbon Dioxide 29 mmol/L (22-29); Chloride 91 mmol/L (98-107); Glucose 259 mg/dL (70-105); Sodium 130 mmol/L (136-145)
[2020-07-23] MEDS: Cholecalciferol 1,000 UNITS (25 MCG) TAB PER TUBE SCH (20:35)
[2020-07-24] MEDS: Meropenem 2 GM, Admixture Fee 1 EACH in Sodium Chloride 0.9% 100 ML IVPB SCH ×3 (01:48→17:15)
[2020-07-24] MEDS: Lorazepam 2 MG/ML VIAL SLOW IVP PRN ×2 (02:33→12:37)
[2020-07-24] MEDS: Vecuronium 10 MG VIAL IV PRN ×6 (03:42→20:14)
[2020-07-24] MEDS ORDERED: Fentanyl CADD 100 ML ONE ×3 (03:44→22:50)
[2020-07-24] MEDS: Fentanyl CADD 100 ML IV SCH ×3 (03:45→23:02)
[2020-07-24 04:35] LABS: #Eosinphils 0.1 thou/uL (0.0-0.7); #Lymphocytes 1.4 thou/uL (1.20-3.40); #Monocytes 0.8 thou/uL (0.11-0.59); #Neutrophils 13.1 thou/uL (1.40-6.50); %Basophils 0.3 % (0.0-1.0); %Eosinophils 0.6 % (0.0-10.0); %Neutrophils 85.1 % (42.0-75.0); Hemoglobin 10.9 g/dL (14.0-18.0); Mean Corpuscular HGB CONC 32.1 g/dL (32.0-36.0); Mean Corpuscular Hemoglobin 30.4 pg (27.0-31.0); Mean Corpuscular Volume 94.8 fL (78.0-98.0); Mean Platelet Volume 6.9 fL (7.4-10.4); Platelet Count 472 thou/uL (130-400); RBC Distribution Width 12.5 % (11.5-14.5); Red Blood Cell (RBC) Count 3.58 mill/uL (4.70-6.10); White Blood Cell (WBC) Count 15.4 thou/uL (4.8-10.8)
[2020-07-24 04:56] LABS: ALT (SGPT) 83 U/L (8-55); AST (SGOT) 20 U/L (5-34); Albumin 2.5 g/dL (3.5-5.0); Alkaline Phosphatase 179 U/L (40-110); Anion Gap 9 mmol/L (10-20); BUN (Urea Nitrogen) 31 mg/dL (8.4-25.7); Bilirubin, Total 0.3 mg/dL (0.2-1.2); Calc. Creatinine Clearance 155 mL/min (70-130); Calcium 8.6 mg/dL (7.8-10.44); Carbon Dioxide 37 mmol/L (22-29); Chloride 90 mmol/L (98-107); Globulin 4.1 g/dL (2.4-3.5); Glucose 236 mg/dL (70-105); Potassium 4.6 mmol/L (3.5-5.1); Protein, Total 6.6 g/dL (6.0-8.3); Sodium 131 mmol/L (136-145)
[2020-07-24] MEDS: HumaLOG 300 UNITS/3 ML VIAL SC PRN ×4 (05:05→22:13)
[2020-07-24] MEDS: Mometasone 100 MCG/Formoterol 5 MCG 120 PUFF INHALER INH SCH ×2 (07:46→18:40)
--- NOTE | 2020-07-24 07:46 | PDOC.FM ---
- Subjective Subjective: Sedated. Overnight small ETT cuff leak, improved this AM. No acute events overnight. - Objective MAR Reviewed: Yes Vital Signs & Weight: Vital Signs (12 hours) Temp Pulse Resp BP Pulse Ox 07/24/20 07:00 99.2 F 07/24/20 06:00 20 07/24/20 04:00 96.9 F L 20 07/24/20 02:22 89 102/65 07/24/20 02:00 22 H 07/24/20 00:07 88 100/64 07/24/20 00:00 97.6 F 20 07/23/20 22:00 20 07/23/20 21:40 100 163/93 H 07/23/20 20:00 97.8 F 20 100 Weight Admit Weight 96.5 kg Weight 104 kg Most Recent Monitor Data Heart Rate from ECG 94 NIBP 92/60 NIBP BP-Mean 70 Respiration from ECG 20 SpO2 99 I&O: 07/23/20 07/24/20 07/25/20 06:59 06:59 06:59 Intake Total 2051.05 1720.4 Output Total 1740 2590 85 Balance 311.05 -869.6 -85 Result Diagrams: 07/24/20 03:55 07/24/20 03:55 Phys Exam - Physical Examination Sedated. HEENT: moist MMs ETT in place Left IJ in place, c/d/i Respiratory: no wheezing Mild bibasilar crackles Cardiovascular: RRR, no significant murmur Gastrointestinal: soft, non-tender, positive bowel sounds Mild Bl hand and feet non-pitting edema Dx/Plan (1) Acute respiratory failure with hypoxia Code(s): J96.01 - ACUTE RESPIRATORY FAILURE WITH HYPOXIA Status: Acute (2) Bacterial pneumonia, unspecified Code(s): J15.9 - UNSPECIFIED BACTERIAL PNEUMONIA Status: Acute (3) COVID-19 Code(s): U07.1 - COVID-19 Status: Acute (4) CKD (chronic kidney disease) Code(s): N18.9 - CHRONIC KIDNEY DISEASE, UNSPECIFIED Status: Chronic (5) Diabetes Code(s): E11.9 - TYPE 2 DIABETES MELLITUS WITHOUT COMPLICATIONS Status: Chronic (6) Hypertension Code(s): I10 - ESSENTIAL (PRIMARY) HYPERTENSION Status: Chronic - Plan Plan: 54 y/o male who DMII and HTN who presented with SOB found to have COVID-19 PNA. #AHRF 2/2 COVID-19 PNA, possible secondary bacterial infection, off-precautions -Patient reports fluctuating symptoms that started on 06/26 - COVID(+) test on 06/28 -CXR: Worsening COVID PNA with vascular congestion -CTA Chest: Negative for PE, but diffuse ground glass opacities noted -Dexamethasone 4mg IV BID -s/p Convalescent Plasma - unable to give Remdesivir due to WYATT/CKD -Initially on Lovenox 40 mg SC daily due to renal function - transitioned to Eliquis -s/p Vanc & Cefepime in ER, Ceftriaxone (07/04-07/08) and Azithromycin (07/04-07/08) -s/p CODE GREEN on 07/16 for worsening respiratory status, hypoglycemia and hypotension -Procal: José Miguel to 4.23 on 07/17 after CODE GREEN - down-trended to 0.3 on 07/22 -ABx initially dc'd as Procal downtrended - now on Meropenem s/p CODE GREEN -Currently intubated and sedated with Midazolam gtt, Fentanyl and Vecuronium -Pulmonology: Consulted, recs appreciated - Meropenem started as per above, weaning vent as tolerated -Respiratory Sputum Cx: Normal Annelise -Repeat BCx: NGTD -Bi-Level Ventilation: 32/10 w/ FiO2 of 60% - weaning as tolerated, currently stable #Anxiety -Intermittent throughout hospitalization - manifests with intermittent tachycardia, tachypnea and feelings of air hunger -Currently sedated with Midazolam gtt, Fentanyl and Vecuronium due to hypotension with Propofol - will continue to optimize -Continue Fluoxetine 20mg daily -Becomes very agitated off sedation #Hyponatremia, intermittent -Likely 2/2 WYATT on CKD, although transient SIADH is possible -Na: 128 > 135 - down to 131 - no changes in mentation or evidence of seizure activity #Intractable Hiccups, resolved -Gabapentin RADHA - currently held based on intubation -Compazine RADHA - currently held based on intubation #WYATT on CKD, resolved -Baseline unknown but patient denied known Hx of CKD -Cr: 3.11 > 0.79 -GFR: 21 > Above 90 -Currently holding Metformin #HTN -Initially on Lisinopril/HCTZ - currently held -Norepinephrine gtt dc'd -Will continue to monitor pressures closely and restart medication as needed #DM2 -A1C: 10.6 -Currently holding Metformin due to WYATT/CKD; reports he takes Trulicity weekly at "maximum dose" -Previously on Lantus 40u QAM, 45u QPM - although this has been held at times based on episodes of hypoglycemia -Will gently increase Lantus to 32u SC QAM -Moderate SSI -Q4H Accuchecks -Hypoglycemia Protocol -Steroids are likely contributing to elevated POC Glucose readings although patient's DM2 is likely poorly controlled at baseline -Will DC with weight-based long-acting insulin and encourage close follow-up with PCP in order to titrate appropriately following dc of steroids PCP: Claude Code: Full Diet: Tube Feeds @ 40cc/hr VTE PPx: Eliquis GI PPx: Protonix Lines/Tubes: Left IJ, Fernández Dispo: Patient is currently in critical condition in the ICU s/p intubation on 07/16 due to AHRF 2/2 COVID-19 Pneumonia with suspected bacterial component. Will continue Dexamethasone, Meropenem and Eliquis as per above. Pulmonology consulted, recs appreciated. Expected LOS > 48H. Addendum - Attending - Attending Attestation Date/Time: 07/24/20 8990 I personally evaluated the patient and discussed the management with Dr. Jarvis I agree with the History, Examination, Assessment and Plan documented above with any addition or exceptions noted below - Intubated and sedated. Afebrile VSS. A/P: 1) Acute hypoxic resp failure secondary to COVID pneumonia- continue vent support. Not weanable at this time. Continue sedation and paralytics. 2) DM- BG stable; continue current meds. .
[2020-07-24] MEDS ORDERED: Insulin Glargine 32 UNITS in Pre-Filled Syringe 1 EACH SC SCH (09:00)
--- NOTE | 2020-07-24 09:08 | RAD ---
CHEST 1 VIEW: Date: 07/24/2020 HISTORY: Ventilated patient. COMPARISON: Radiograph prior day. FINDINGS: Endotracheal tube tip below level of clavicles. Air space opacities are similar. Central venous man[address] ter tip projects to the right atrium. Enteric tube tip below diaphragm, though out of field of view. No acute osseous abnormality. IMPRESSION: Similar examination of the chest without improved lung aeration. No pneumothorax or pneumomediastinum . Relative to an examination from 1 week prior. Findings have not significantly changed. POS: [facility]
[2020-07-24] MEDS: Ascorbic Acid 500 mg Chewable Tablet PER TUBE SCH (09:33)
[2020-07-24] MEDS: Polyethylene Glycol 3350 17 GM Packet PER TUBE SCH (09:33)
[2020-07-24] MEDS: Senokot S 8.6-50 MG TAB PER TUBE SCH ×2 (09:33→20:11)
[2020-07-24] MEDS: FLUoxetine HCl 20 MG CAP PO SCH (09:33)
[2020-07-24] MEDS: Dexamethasone 4 mg/ml Vial SLOW IVP SCH ×2 (09:34→20:12)
[2020-07-24] MEDS: Lisinopril/Hydrochlorothiazide 20/25 mg Tablet PO SCH (09:34)
[2020-07-24] MEDS: guaiFENesin/DM ER PO SCH (09:34)
[2020-07-24] MEDS: Pantoprazole 40 MG VIAL IVP SCH (09:34)
[2020-07-24] MEDS: Apixaban 5 MG TAB PER TUBE SCH ×2 (09:34→20:11)
[2020-07-24] MEDS ORDERED: Furosemide 20 MG/2 ML VIAL SLOW IVP SCH (09:45)
[2020-07-24] MEDS ORDERED: Ventilator Sedation Protocol 1 EACH FS ONE (13:09)
[2020-07-24] MEDS ORDERED: Propofol BOLUS 1,000 MG/100 ML VIAL IV PRN (13:15)
[2020-07-24] MEDS: Propofol 1,000 MG/100 ML VIAL IV PRN ×2 (13:24→20:56)
--- NOTE | 2020-07-24 17:11 | PRG ---
DATE OF SERVICE: 07/24/2020 SUBJECTIVE: Mr. Celaya is clinically unchanged. OBJECTIVE: VITAL SIGNS: Heart rates in the 90s, FiO2 is 60, and blood pressure is 106/63. We turned his FiO2 down to 50. His airway pressures have been decreased to bilevel of 28/8. He appears to be tolerating this. Saturations in mid 90s this afternoon. LUNGS: Clear. HEART: Regular rhythm. ABDOMEN: Soft. LABORATORY DATA: White count 15.4, hemoglobin 10.9, platelets 472,000. Sodium 131, potassium 4.6, chloride 90, bicarb 37, BUN 31, and creatinine 0.82. IMPRESSION: Respiratory failure associated with COVID pneumonia. PLAN: Continue current support. He has a significant appearance of muscle weakness and probably would benefit from a tracheostomy. Critical care time 30 min. Job ID: [id number] MTDD
[2020-07-24] MEDS: Cholecalciferol 1,000 UNITS (25 MCG) TAB PER TUBE SCH (20:11)
[2020-07-25] MEDS: Meropenem 2 GM, Admixture Fee 1 EACH in Sodium Chloride 0.9% 100 ML IVPB SCH ×3 (00:49→17:21)
[2020-07-25] MEDS: Propofol 1,000 MG/100 ML VIAL IV PRN ×4 (02:57→20:29)
[2020-07-25] MEDS: HumaLOG 300 UNITS/3 ML VIAL SC PRN ×3 (04:37→16:06)
[2020-07-25 04:46] LABS: #Eosinphils 0.1 thou/uL (0.0-0.7); #Lymphocytes 1.1 thou/uL (1.20-3.40); #Monocytes 0.6 thou/uL (0.11-0.59); #Neutrophils 9.9 thou/uL (1.40-6.50); %Basophils 0.3 % (0.0-1.0); %Eosinophils 0.6 % (0.0-10.0); %Lymphocytes 9.7 % (21.0-51.0); %Monocytes 4.7 % (0.0-10.0); %Neutrophils 84.7 % (42.0-75.0); Hemoglobin 9.7 g/dL (14.0-18.0); Mean Corpuscular HGB CONC 32.3 g/dL (32.0-36.0); Mean Corpuscular Hemoglobin 30.4 pg (27.0-31.0); Mean Corpuscular Volume 94.1 fL (78.0-98.0); Mean Platelet Volume 6.8 fL (7.4-10.4); Platelet Count 403 thou/uL (130-400); RBC Distribution Width 12.6 % (11.5-14.5); Red Blood Cell (RBC) Count 3.18 mill/uL (4.70-6.10); White Blood Cell (WBC) Count 11.7 thou/uL (4.8-10.8)
[2020-07-25 05:11] LABS: ALT (SGPT) 65 U/L (8-55); AST (SGOT) 17 U/L (5-34); Albumin 2.3 g/dL (3.5-5.0); Alkaline Phosphatase 158 U/L (40-110); Anion Gap 10 mmol/L (10-20); BUN (Urea Nitrogen) 35 mg/dL (8.4-25.7); Bilirubin, Total 0.3 mg/dL (0.2-1.2); Calc. Creatinine Clearance 146 mL/min (70-130); Carbon Dioxide 37 mmol/L (22-29); Chloride 89 mmol/L (98-107); Globulin 3.7 g/dL (2.4-3.5); Glucose 276 mg/dL (70-105); Potassium 4.7 mmol/L (3.5-5.1); Sodium 131 mmol/L (136-145)
[2020-07-25] MEDS: Mometasone 100 MCG/Formoterol 5 MCG 120 PUFF INHALER INH SCH ×2 (06:57→18:44)
--- NOTE | 2020-07-25 08:08 | RAD ---
Portable frontal chest radiograph: 07/25/2020 COMPARISON: 07/24/2020 HISTORY: Ventilated patient FINDINGS: Stable endotracheal tube and nasogastric tube. No pneumothorax is evident. Stable right vascular catheter. There is extensive interstitial and alveolar opacity throughout both lungs, left greater than right, nonspecific and not significantly changed. IMPRESSION: No significant interval change.
--- NOTE | 2020-07-25 08:40 | PDOC.FM ---
- Subjective Subjective: Transitioned from versed and fentanyl to propofol sedation due to comfort and fighting the vent. Much more comfortable this morning. Tube feeds transitioning to glucerna due to diabetes. Bp stable. UOP adequate. Sedated this AM. updated yesterday at bedside. No acute events overnight. - Objective MAR Reviewed: Yes Vital Signs & Weight: Vital Signs (12 hours) Temp Pulse Resp Pulse Ox 07/25/20 08:00 32 H 07/25/20 07:46 96 07/25/20 07:00 98.4 F 07/25/20 06:58 69 07/25/20 06:00 28 H 07/25/20 04:00 98.9 F 20 07/25/20 02:06 77 07/25/20 02:00 24 H 07/25/20 00:00 98.2 F 27 H 07/24/20 22:03 82 07/24/20 22:00 34 H Weight Admit Weight 96.5 kg Weight 104 kg Most Recent Monitor Data Heart Rate from ECG 72 NIBP 96/64 NIBP BP-Mean 74 Respiration from ECG 23 SpO2 97 I&O: 07/24/20 07/25/20 07/26/20 06:59 06:59 06:59 Intake Total 1720.4 2451.9 Output Total 2590 3120 50 Balance -869.6 -668.1 -50 Result Diagrams: 07/26/20 04:00 07/26/20 04:00 Phys Exam - Physical Examination Constitutional: NAD (sedated, much more comfortable on vent) HEENT: moist MMs ETT and OG in place. Right IJ Neck: supple Respiratory: no wheezing, no rales, no rhonchi, clear to auscultation bilateral Cardiovascular: no significant murmur Gastrointestinal: soft, no distention, positive bowel sounds Non pitting edema of hands and feet, improved from yesterday Dx/Plan (1) Acute respiratory failure with hypoxia Code(s): J96.01 - ACUTE RESPIRATORY FAILURE WITH HYPOXIA Status: Acute (2) Bacterial pneumonia, unspecified Code(s): J15.9 - UNSPECIFIED BACTERIAL PNEUMONIA Status: Acute (3) COVID-19 Code(s): U07.1 - COVID-19 Status: Acute (4) CKD (chronic kidney disease) Code(s): N18.9 - CHRONIC KIDNEY DISEASE, UNSPECIFIED Status: Chronic (5) Diabetes Code(s): E11.9 - TYPE 2 DIABETES MELLITUS WITHOUT COMPLICATIONS Status: Chronic (6) Hypertension Code(s): I10 - ESSENTIAL (PRIMARY) HYPERTENSION Status: Chronic - Plan Plan: 54 y/o male with DMII and HTN who presented with SOB found to have COVID-19 PNA. #AHRF 2/ COVID-19 PNA, possible secondary bacterial infection, off-precautions -Patient reports fluctuating symptoms that started on 06/26 - COVID(+) test on 06/28 -CXR: Worsening COVID PNA with vascular congestion -CTA Chest: Negative for PE, but diffuse ground glass opacities noted -Dexamethasone 4mg IV BID, likely could be weaned -s/p Convalescent Plasma - unable to give Remdesivir due to WYATT/CKD -Initially on Lovenox 40 mg SC daily due to renal function - transitioned to Eliquis -s/p Vanc & Cefepime in ER, Ceftriaxone (07/04-07/08) and Azithromycin (07/04-07/08) -s/p CODE GREEN on 07/16 for worsening respiratory status, hypoglycemia and hypotension -Procal: José Miguel to 4.23 on 07/17 after CODE GREEN - down-trended to 0.3 on 07/22 -ABx initially dc'd as Procal downtrended - now on Meropenem s/p CODE GREEN -Currently intubated and sedated with propofol -Pulmonology: Consulted, recs appreciated - Meropenem started as per above, weaning vent as tolerated -Respiratory Sputum Cx: Normal Annelise -Repeat BCx: NGTD -Bi-Level Ventilation: 31/8 w/ FiO2 of 50% - weaning as tolerated, currently stable #Anxiety -Intermittent throughout hospitalization - manifests with intermittent tachycardia, tachypnea and feelings of air hunger -Continue Fluoxetine 20mg daily -Becomes agitated off sedation #Hyponatremia, intermittent -Na 131 -Likely 3rd spacing, consider albumin #WYATT on CKD, resolved -Baseline unknown but patient denied known Hx of CKD -Cr: 3.11 > 0.79 -GFR: 21 > Above 90 -Currently holding Metformin #HTN -Initially on Lisinopril/HCTZ - currently held -Norepinephrine gtt dc'd -Will continue to monitor pressures closely and restart medication as needed #DM2 -A1C: 10.6 -Currently holding Metformin due to WYATT/CKD; reports he takes Trulicity weekly at "maximum dose" -Previously on Lantus 40u QAM, 45u QPM - although this has been held at times based on episodes of hypoglycemia -Will gently increase Lantus to 35u SC QAM -Moderate SSI -Q4H Accuchecks -Hypoglycemia Protocol -Steroids are likely contributing to elevated POC Glucose readings although patient's DM2 is likely poorly controlled at baseline -Will DC with weight-based long-acting insulin and encourage close follow-up with PCP in order to titrate appropriately following dc of steroids PCP: Claude Code: Full Diet: Tube Feeds @ 40cc/hr VTE PPx: Eliquis GI PPx: Protonix Lines/Tubes: Right IJ, Fernández Dispo: Patient is currently in critical condition in the ICU s/p intubation on 07/16 due to AHRF 2/2 COVID-19 Pneumonia with suspected bacterial component. Will continue Dexamethasone, Meropenem and Eliquis as per above. Pulmonology consulted, recs appreciated. Expected LOS > 48H. Likely will need trach and PEG. Addendum - Attending - Attending Attestation Date/Time: 07/26/20 0370 I personally evaluated the patient and discussed the management with Dr. Jarvis I agree with the History, Examination, Assessment and Plan documented above with any addition or exceptions noted below- Intubated and sedated. Afebrile VSS. A/P: 1) Acute hypoxic resp failure secondary to COVID pneumonia- Not weanable; continue vent support. Less agitated with change to propofol. 2) DM- changed to glucerna; continue to monitor glucoses.
[2020-07-25] MEDS ORDERED: Fentanyl CADD 100 ML ONE ×2 (09:04→18:40)
[2020-07-25] MEDS: Polyethylene Glycol 3350 17 GM Packet PER TUBE SCH (09:14)
[2020-07-25] MEDS: FLUoxetine HCl 20 MG CAP PO SCH (09:14)
[2020-07-25] MEDS: Apixaban 5 MG TAB PER TUBE SCH (09:14)
[2020-07-25] MEDS: Ascorbic Acid 500 mg Chewable Tablet PER TUBE SCH (09:14)
[2020-07-25] MEDS: Pantoprazole 40 MG VIAL IVP SCH (09:14)
[2020-07-25] MEDS: Senokot S 8.6-50 MG TAB PER TUBE SCH ×2 (09:14→19:41)
[2020-07-25] MEDS: Lisinopril/Hydrochlorothiazide 20/25 mg Tablet PO SCH (09:15)
[2020-07-25] MEDS: Dexamethasone 4 mg/ml Vial SLOW IVP SCH ×2 (09:15→20:13)
[2020-07-25] MEDS: Lorazepam 2 MG/ML VIAL SLOW IVP PRN ×5 (09:42→22:27)
[2020-07-25] MEDS: Insulin Glargine 35 UNITS in Pre-Filled Syringe 1 EACH SC SCH (09:47)
[2020-07-25] MEDS: Vecuronium 10 MG VIAL IV PRN ×4 (09:54→22:45)
--- NOTE | 2020-07-25 15:31 | PRG ---
DATE OF SERVICE: 07/25/2020 SUBJECTIVE: Pavan Celaya's hemodynamics remain stable. OBJECTIVE: VITAL SIGNS: Blood pressure 105/61, heart rate is in the 70s, respiratory rate is 20. LUNGS: Remarkable for coarse equal breath sounds. HEART: Regular rhythm. ABDOMEN: Soft. LABORATORY DATA: White count 11.7, hemoglobin 9.7, and platelets 403. Sodium 131, potassium 4.7, chloride 89, bicarb 37, BUN 35, and creatinine 0.87. Chest x-ray is unchanged. IMPRESSION: COVID pneumonia with respiratory failure. He has been in the hospital now for 22 days. I have explained to his that a tracheostomy and a PEG will help facilitate weaning from mechanical ventilation and hopefully lead to recovery. She is willing to proceed with this. Surgery will be consulted. Critical care time 30 min. Job ID: [id number] MTDD
[2020-07-25] MEDS: Haloperidol Lactate 5 MG/ML VIAL IM SCH ×3 (15:58→22:45)
[2020-07-25] MEDS: Cholecalciferol 1,000 UNITS (25 MCG) TAB PER TUBE SCH (20:15)
[2020-07-25] MEDS ORDERED: Apixaban 2.5 MG TAB PO SCH (21:00)
[2020-07-26] MEDS: Meropenem 2 GM, Admixture Fee 1 EACH in Sodium Chloride 0.9% 100 ML IVPB SCH ×2 (00:59→08:49)
[2020-07-26] MEDS: Haloperidol Lactate 5 MG/ML VIAL IM SCH ×2 (02:12→06:31)
[2020-07-26] MEDS ORDERED: Fentanyl CADD 100 ML ONE ×2 (03:52→14:42)
[2020-07-26] MEDS: HumaLOG 300 UNITS/3 ML VIAL SC PRN ×2 (04:25→16:33)
[2020-07-26 04:31] LABS: #Eosinphils 0.1 thou/uL (0.0-0.7); #Lymphocytes 1.3 thou/uL (1.20-3.40); #Monocytes 0.7 thou/uL (0.11-0.59); #Neutrophils 10.8 thou/uL (1.40-6.50); %Basophils 0.1 % (0.0-1.0); %Eosinophils 0.4 % (0.0-10.0); %Monocytes 5.6 % (0.0-10.0); %Neutrophils 83.9 % (42.0-75.0); Hemoglobin 9.1 g/dL (14.0-18.0); Mean Corpuscular HGB CONC 32.3 g/dL (32.0-36.0); Mean Corpuscular Hemoglobin 30.4 pg (27.0-31.0); Mean Corpuscular Volume 94.3 fL (78.0-98.0); Mean Platelet Volume 6.6 fL (7.4-10.4); Platelet Count 403 thou/uL (130-400); RBC Distribution Width 12.5 % (11.5-14.5); White Blood Cell (WBC) Count 12.9 thou/uL (4.8-10.8)
[2020-07-26] MEDS: Propofol 1,000 MG/100 ML VIAL IV PRN ×4 (04:40→20:15)
[2020-07-26] MEDS: Fentanyl CADD 100 ML IV SCH (04:56)
[2020-07-26 05:49] LABS: ALT (SGPT) 52 U/L (8-55); AST (SGOT) 25 U/L (5-34); Albumin 2.5 g/dL (3.5-5.0); Alkaline Phosphatase 144 U/L (40-110); Anion Gap 10 mmol/L (10-20); BUN (Urea Nitrogen) 33 mg/dL (8.4-25.7); Bilirubin, Total 0.2 mg/dL (0.2-1.2); Calc. Creatinine Clearance 144 mL/min (70-130); Calcium 8.3 mg/dL (7.8-10.44); Carbon Dioxide 36 mmol/L (22-29); Chloride 92 mmol/L (98-107); Globulin 3.5 g/dL (2.4-3.5); Glucose 196 mg/dL (70-105); Potassium 4.2 mmol/L (3.5-5.1); Sodium 134 mmol/L (136-145)
[2020-07-26] MEDS: Mometasone 100 MCG/Formoterol 5 MCG 120 PUFF INHALER INH SCH ×2 (07:26→18:16)
[2020-07-26] MEDS ORDERED: Senokot S 8.6-50 MG TAB PER TUBE PRN (07:53)
--- NOTE | 2020-07-26 07:58 | PDOC.FM ---
- Subjective Subjective: Sedated this morning. More comfortable. No acute events overnight. Able to wean FiO2. Does not follow commands off sedation. is in process of choosing LTAC facility, CM to assist. Multiple BM over past 24 hours. Fernández exchanged due to sediment. - Objective MAR Reviewed: Yes Vital Signs & Weight: Vital Signs (12 hours) Temp Pulse Resp BP Pulse Ox 07/26/20 07:26 73 93/63 07/26/20 07:00 98.5 F 07/26/20 06:00 23 H 07/26/20 04:00 97.8 F 34 H 07/26/20 02:18 85 07/26/20 02:00 33 H 07/26/20 00:00 98.8 F 36 H 07/25/20 22:00 20 07/25/20 21:56 102 H 07/25/20 20:00 23 H 94 L Weight Admit Weight 96.5 kg Weight 104 kg Most Recent Monitor Data Heart Rate from ECG 71 NIBP 92/61 NIBP BP-Mean 71 Respiration from ECG 20 SpO2 94 I&O: 07/25/20 07/26/20 07/27/20 06:59 06:59 06:59 Intake Total 2451.9 2241 Output Total 3120 2225 190 Balance -668.1 16 -190 Result Diagrams: 07/26/20 04:00 07/26/20 04:00 Phys Exam - Physical Examination sedated HEENT: moist MMs ETT and OG in place Neck: supple Respiratory: no wheezing Course rhonchi, good aeration Cardiovascular: RRR, no significant murmur Gastrointestinal: soft, no distention, positive bowel sounds mild, non-pitting edema to hands and feet Dx/Plan (1) Acute respiratory failure with hypoxia Code(s): J96.01 - ACUTE RESPIRATORY FAILURE WITH HYPOXIA Status: Acute (2) Bacterial pneumonia, unspecified Code(s): J15.9 - UNSPECIFIED BACTERIAL PNEUMONIA Status: Acute (3) COVID-19 Code(s): U07.1 - COVID-19 Status: Acute (4) CKD (chronic kidney disease) Code(s): N18.9 - CHRONIC KIDNEY DISEASE, UNSPECIFIED Status: Chronic (5) Diabetes Code(s): E11.9 - TYPE 2 DIABETES MELLITUS WITHOUT COMPLICATIONS Status: Chronic (6) Hypertension Code(s): I10 - ESSENTIAL (PRIMARY) HYPERTENSION Status: Chronic - Plan Plan: 54 y/o male with DMII and HTN who presented with SOB found to have COVID-19 PNA. #AHRF 2/2 COVID-19 PNA, possible secondary bacterial infection, off-precautions -Patient reports fluctuating symptoms that started on 06/26 - COVID(+) test on 06/28 -CXR: Worsening COVID PNA with vascular congestion -CTA Chest: Negative for PE, but diffuse ground glass opacities noted -Dexamethasone 4mg IV BID, consider slow wean -s/p Convalescent Plasma - unable to give Remdesivir due to WYATT/CKD -Initially on Lovenox 40 mg SC daily due to renal function - transitioned to [place] iquis - now held for Trach and PEG -s/p Vanc & Cefepime in ER, Ceftriaxone (07/04-07/08) and Azithromycin (07/04-07/08) -s/p CODE GREEN on 07/16 for worsening respiratory status, hypoglycemia and hypotension -Procal: José Miguel to 4.23 on 07/17 after CODE GREEN - down-trended to 0.3 on 07/22 -ABx initially dc'd as Procal downtrended - now on Meropenem since 07/16, consider d/c -Currently intubated and sedated with propofol -Pulmonology: Consulted, recs appreciated - Meropenem started as per above, weaning vent as tolerated -Respiratory Sputum Cx: Normal Annelise -Repeat BCx: NGTD -Bi-Level Ventilation: 31/8 w/ FiO2 of 50% - weaning as tolerated, currently stable -Plan for trach and PEG with Dr. Jones in next few days #Anxiety -Intermittent throughout hospitalization - manifests with intermittent tachycardia, tachypnea and feelings of air hunger -Continue Fluoxetine 20mg daily -Becomes agitated off sedation, will continue to monitor #Hyponatremia, intermittent -Na 131 -Likely 3rd spacing, consider albumin prn #WYATT on CKD, resolved -Baseline unknown but patient denied known Hx of CKD -Cr: 3.11 > 0.79 -GFR: 21 > Above 90 -Currently holding Metformin #HTN -Initially on Lisinopril/HCTZ - currently held -Norepinephrine gtt dc'd -Will continue to monitor pressures closely and restart medication as needed #DM2 -A1C: 10.6 -Currently holding Metformin due to WYATT/CKD; reports he takes Trulicity weekly at "maximum dose" -Previously on Lantus 40u QAM, 45u QPM - although this has been held at times based on episodes of hypoglycemia -Will gently increase Lantus to 35u SC QAM -Moderate SSI -Q4H Accuchecks -Hypoglycemia Protocol -Steroids are likely contributing to elevated POC Glucose readings although patient's DM2 is likely poorly controlled at baseline PCP: Claude Code: Full Diet: Tube Feeds VTE PPx: Eliquis - HELD for procedure GI PPx: Protonix Lines/Tubes: Right IJ, Fernández Dispo: In critical condition in the ICU s/p intubation on 07/16 due to AHRF 2/2 COVID-19 Pneumonia with suspected bacterial component. Consider steroid wean and d/c of abx. Pulmonology consulted, recs appreciated. Weaning vent as tolerated. Upcoming trach and PEG. looking at LTAC facilities. Addendum - Attending - Attending Attestation Date/Time: 07/26/20 1106 I personally evaluated the patient and discussed the management with Dr. Jarvis I agree with the History, Examination, Assessment and Plan documented above with any addition or exceptions noted below- Intubated and sedated. No overnight events. Afebrile VSS. A/P: 1) Acute hypoxic resp failure secondary to COVID pneumonia - not weanable at this time; continue vent support. Plan for trach/PEG on Friday as per surgery. Appreciate pulmonary assistance. 2) DM- insulin and tube feedings adjusted. Continue to monitor. 3) HTN - off meds currently; continue to monitor.
--- NOTE | 2020-07-26 07:59 | RAD ---
EXAM: Portable chest PROVIDED CLINICAL HISTORY: Respiratory insufficiency COMPARISON: 07/25/2020 FINDINGS: Significant interval change with respect to the prior examination is not apparent. IMPRESSION: As above.
[2020-07-26] MEDS: Ascorbic Acid 500 mg Chewable Tablet PER TUBE SCH (08:49)
[2020-07-26] MEDS: Polyethylene Glycol 3350 17 GM Packet PER TUBE SCH (08:49)
[2020-07-26] MEDS: FLUoxetine HCl 20 MG CAP PO SCH (08:49)
[2020-07-26] MEDS: Pantoprazole 40 MG GRANULES PACKET PER TUBE SCH (08:49)
[2020-07-26] MEDS: Dexamethasone 4 mg/ml Vial SLOW IVP SCH (08:50)
[2020-07-26] MEDS: Insulin Glargine 35 UNITS in Pre-Filled Syringe 1 EACH SC SCH (10:40)
[2020-07-26] MEDS: Lorazepam 2 MG/ML VIAL SLOW IVP PRN ×2 (11:37→22:04)
--- NOTE | 2020-07-26 17:54 | PRG ---
DATE OF SERVICE: 07/26/2020 OBJECTIVE: VITAL SIGNS: Pavan Urena heart rate is in 70s, blood pressure is 117/73, FiO2 is at 50, respiratory rate is in the 20s. Intake and outputs positive 16 mL. LUNGS: Remarkable for coarse equal breath sounds. HEART: Regular rhythm. ABDOMEN: Soft. EXTREMITIES: Without asymmetry or edema. LABORATORY DATA: Chest x-ray is unchanged. White count 12.9, hemoglobin 9.1, and platelets 403. Sodium 134, potassium 4.2, chloride 90, bicarb 36, BUN 33, creatinine 0.8. IMPRESSION: 1. COVID pneumonia with respiratory failure. He has been hospitalized now for 23 days. tracheostomy and PEG will help facilitate weaning. Obesity and deconditioning are big factors met with her again today and answered all of her questions. His trach is scheduled, but has been delayed because of the anticoagulants that have to clear. Job ID: [id number]
[2020-07-26] MEDS: Cholecalciferol 1,000 UNITS (25 MCG) TAB PER TUBE SCH (20:15)
[2020-07-26] MEDS: Vecuronium 10 MG VIAL IV PRN (20:42)
[2020-07-26] MEDS ORDERED: Fentanyl BOLUS 250 ML IVPB PRN (20:51)
[2020-07-27] MEDS ORDERED: Fentanyl CADD 100 ML ONE ×3 (00:49→22:21)
[2020-07-27] MEDS: Propofol 1,000 MG/100 ML VIAL IV PRN ×6 (00:58→20:08)
[2020-07-27] MEDS: Fentanyl CADD 100 ML IV SCH ×3 (00:58→22:31)
[2020-07-27 05:03] LABS: #Basophils 0.1 thou/uL (0.0-0.2); #Eosinphils 0.8 thou/uL (0.0-0.7); #Lymphocytes 2.9 thou/uL (1.20-3.40); #Monocytes 0.8 thou/uL (0.11-0.59); %Basophils 0.7 % (0.0-1.0); %Eosinophils 6.5 % (0.0-10.0); %Lymphocytes 23.1 % (21.0-51.0); %Monocytes 6.1 % (0.0-10.0); %Neutrophils 63.7 % (42.0-75.0); Hemoglobin 9.4 g/dL (14.0-18.0); Mean Corpuscular HGB CONC 31.4 g/dL (32.0-36.0); Mean Corpuscular Hemoglobin 29.7 pg (27.0-31.0); Mean Corpuscular Volume 94.5 fL (78.0-98.0); Mean Platelet Volume 6.7 fL (7.4-10.4); Platelet Count 441 thou/uL (130-400); RBC Distribution Width 12.7 % (11.5-14.5); Red Blood Cell (RBC) Count 3.18 mill/uL (4.70-6.10); White Blood Cell (WBC) Count 12.5 thou/uL (4.8-10.8)
[2020-07-27 05:33] LABS: ALT (SGPT) 50 U/L (8-55); AST (SGOT) 28 U/L (5-34); Albumin 2.5 g/dL (3.5-5.0); Alkaline Phosphatase 144 U/L (40-110); BUN (Urea Nitrogen) 30 mg/dL (8.4-25.7); Bilirubin, Total 0.2 mg/dL (0.2-1.2); Calc. Creatinine Clearance 169 mL/min (70-130); Calcium 8.4 mg/dL (7.8-10.44); Globulin 3.5 g/dL (2.4-3.5); Glucose 87 mg/dL (70-105)
[2020-07-27 05:42] LABS: Anion Gap 13 mmol/L (10-20); Carbon Dioxide 34 mmol/L (22-29); Chloride 95 mmol/L (98-107); Potassium 3.9 mmol/L (3.5-5.1); Sodium 138 mmol/L (136-145)
--- NOTE | 2020-07-27 06:34 | PDOC.FM ---
- Subjective Subjective: Sedated, no acute events overnight. Plan for Trach and PEG friday. CM assisting with LTAC placement. - Objective MAR Reviewed: Yes Vital Signs & Weight: Vital Signs (12 hours) Temp Pulse Resp Pulse Ox 07/27/20 06:00 23 H 07/27/20 04:00 98.3 F 32 H 07/27/20 02:00 38 H 07/27/20 01:59 69 07/27/20 00:00 97.9 F 23 H 07/26/20 22:00 20 07/26/20 21:52 104 H 07/26/20 20:00 98.5 F 20 90 L Weight Admit Weight 96.5 kg Weight 104 kg Most Recent Monitor Data Heart Rate from ECG 78 NIBP 102/61 NIBP BP-Mean 74 Respiration from ECG 20 SpO2 93 I&O: 07/25/20 07/26/20 07/27/20 06:59 06:59 06:59 Intake Total 2451.9 2241 1538.6 Output Total 3120 2225 2610 Balance -668.1 16 -1071.4 Result Diagrams: 07/27/20 03:25 07/27/20 03:25 Phys Exam - Physical Examination Sedated, intubated HEENT: moist MMs ETT and OG in place Neck: supple Respiratory: no wheezing mild course rhonchi Bl lung bases, good aeration Cardiovascular: RRR, no significant murmur Gastrointestinal: soft, no distention, positive bowel sounds Non pitting edema to hands and feet, stable Dx/Plan (1) Acute respiratory failure with hypoxia Code(s): J96.01 - ACUTE RESPIRATORY FAILURE WITH HYPOXIA Status: Acute (2) Bacterial pneumonia, unspecified Code(s): J15.9 - UNSPECIFIED BACTERIAL PNEUMONIA Status: Acute (3) COVID-19 Code(s): U07.1 - COVID-19 Status: Acute (4) CKD (chronic kidney disease) Code(s): N18.9 - CHRONIC KIDNEY DISEASE, UNSPECIFIED Status: Chronic (5) Diabetes Code(s): E11.9 - TYPE 2 DIABETES MELLITUS WITHOUT COMPLICATIONS Status: Chronic (6) Hypertension Code(s): I10 - ESSENTIAL (PRIMARY) HYPERTENSION Status: Chronic - Plan Plan: 54 y/o male with DMII and HTN who presented with SOB found to have COVID-19 PNA. #AHRF 2/2 COVID-19 PNA, possible secondary bacterial infection, off-precautions and abx -Patient reports fluctuating symptoms that started on 06/26 - COVID(+) test on 06/28 -CXR: Worsening COVID PNA with vascular congestion -CTA Chest: Negative for PE, but diffuse ground glass opacities noted -Weaning Dexamethasone to 4mg QAM -s/p Convalescent Plasma - unable to give Remdesivir due to WYATT/CKD -Initially on Lovenox 40 mg SC daily due to renal function - transitioned to Eliquis - now held for Trach and PEG tomorrow -s/p Vanc & Cefepime in ER, Ceftriaxone (07/04-07/08) and Azithromycin (07/04-07/08) -s/p CODE GREEN on 07/16 for worsening respiratory status, hypoglycemia and hypotension -Procal: José Miguel to 4.23 on 07/17 after CODE GREEN - down-trended to 0.3 on 07/22 -ABx initially dc'd as Procal downtrended - Meropenem 07/16 -> 07/26 -Currently intubated and sedated with propofol -Pulmonology: Consulted, recs appreciated- weaning vent as tolerated -Respiratory Sputum Cx: Normal Annelise -Repeat BCx: NGTD -Bi-Level Ventilation: 31/8 w/ FiO2 of 50% - weaning as tolerated, currently stable -Plan for trach and PEG with Dr. Jones Friday -CM assisting with LTAC placement #Anxiety -Intermittent throughout hospitalization - manifests with intermittent tachycardia, tachypnea and feelings of air hunger -Continue Fluoxetine 20mg daily -Becomes agitated off sedation, will continue to monitor #HTN -Initially on Lisinopril/HCTZ - currently held -Norepinephrine gtt dc'd -Will continue to monitor pressures and restart medication as needed #DM2 -A1C: 10.6 -Currently holding Metformin due to WYATT/CKD; reports he takes Trulicity weekly at "maximum dose" -Previously on Lantus 40u QAM, 45u QPM - although this has been held at times based on episodes of hypoglycemia -Lantus 26u daily - titrating as indicated -Moderate SSI -Q4H Accuchecks -Hypoglycemia Protocol -Steroids are likely contributing to elevated POC Glucose readings although patient's DM2 is likely poorly controlled at baseline #Hyponatremia, resolved -monitor #WYATT on CKD, resolved -Baseline unknown but patient denied known Hx of CKD -Cr: 3.11 > 0.79 -GFR: 21 > Above 90 -Currently holding Metformin PCP: Claude Code: Full Diet: Tube Feeds VTE PPx: Eliquis - HELD for procedure GI PPx: Protonix Lines/Tubes: Right IJ, Fernández Dispo: In critical condition in the ICU s/p intubation on 07/16 due to AHRF 2/2 COVID-19 Pneumonia with suspected bacterial component. Steroid wean and antibiotics d/c'ed. Pulmonology consulted, recs appreciated. Weaning vent as tolerated. Upcoming trach and PEG. looking at LTAC facilities. Addendum - Attending - Attending Attestation Date/Time: 07/27/20 1115 I personally evaluated the patient and discussed the management with Dr. Jarvis I agree with the History, Examination, Assessment and Plan documented above with any addition or exceptions noted below - Patient intubated and sedated. Afebrile VSS. A/P: 1) Acute hypoxic resp failure secondary to COVID pneumonia - not weanable at this time. Plan for trach and PEG on Friday. Antibiotics d/c'd and starting to wean steroids. 2) DM- BG improved with change to glucerna; insulin decreased to avoid hypoglycemia.
[2020-07-27] MEDS: Lorazepam 2 MG/ML VIAL SLOW IVP PRN ×5 (06:37→15:55)
[2020-07-27] MEDS: Mometasone 100 MCG/Formoterol 5 MCG 120 PUFF INHALER INH SCH ×2 (06:52→19:29)
--- NOTE | 2020-07-27 08:21 | RAD ---
Exam: Chest one view HISTORY:Respiratory distress. Ventilated patient. Comparison: 07/26/2020 FINDINGS: Lines and tubes: Endotracheal tube, nasogastric tube and right-sided internal jugular vascular cathet er are redemonstrated. Cardiac silhouette:Stable cardiomegaly Aorta: Unremarkable Pulmonary vessels: Normal Costophrenic angles: Clear LUNGS: Lung volumes continue to be diminished. Diffuse interstitial and alveolar opacities, unchanged . Pneumothorax: None Osseous abnormalities: None IMPRESSION: No significant interval change.
--- NOTE | 2020-07-27 08:45 | PRG ---
DATE OF SERVICE: 07/27/2020 35 minutes critical care time. SUBJECTIVE: The patient remains intubated on mechanical ventilation. There has been no acute changes overnight. OBJECTIVE: VITAL SIGNS: Temperature 98.3, pulse 78, blood pressure 102/61. Sat 93%. 24-hour intake 1538, output 2610. HEENT: Unremarkable except for the endotracheal tube in place. NECK: No adenopathy or JVD. LUNGS: Coarse breath sounds. CARDIAC: S1, S2. Regular. ABDOMEN: Soft. EXTREMITIES: Edematous. LABORATORY DATA: White blood cell count 12.5, hematocrit 30, and platelet count 441, sodium 138, potassium 3.9, chloride 95, CO2 of 34, BUN 30, creatinine 0.7, glucose 87. ASSESSMENT: COVID-19 pneumonia with diffuse bilateral pulmonary infiltrates. PLAN: Trach and PEG are in the near future. I believe his anticoagulants have been held with the thought that this procedure will be performed in the upcoming days. I have reviewed the orders. There is not much to change at this time. Job ID: [id number]
[2020-07-27] MEDS ORDERED: Insulin Glargine 26 UNITS in Pre-Filled Syringe 1 EACH SC SCH (09:00)
[2020-07-27] MEDS ORDERED: Insulin Glargine 30 UNITS in Pre-Filled Syringe 1 EACH SC SCH (09:00)
[2020-07-27] MEDS: Pantoprazole 40 MG GRANULES PACKET PER TUBE SCH (09:23)
[2020-07-27] MEDS: Ascorbic Acid 500 mg Chewable Tablet PER TUBE SCH (09:23)
[2020-07-27] MEDS: Polyethylene Glycol 3350 17 GM Packet PER TUBE SCH (09:23)
[2020-07-27] MEDS: Dexamethasone 4 mg/ml Vial SLOW IVP SCH (09:23)
[2020-07-27] MEDS: FLUoxetine HCl 20 MG CAP PO SCH (09:23)
--- NOTE | 2020-07-27 09:53 | CON ---
DATE OF CONSULTATION: HISTORY OF PRESENT ILLNESS: Pavan Celaya is a 54-year-old male patient, respiratory failure, obesity, admitted by [facility], seen by Critical Care. I have been asked to see regarding tracheostomy and PEG tube. He has been on Eliquis, that has been held for last 2 days and plan tracheostomy and PEG tube tomorrow. The patient is admitted from the ER on 07/03/2020. He was seen for dyspnea, COVID positive on June 28 at outside facility, experienced fever, chills, loss of taste and smell initially, but they apparently resolved, but his dyspnea worsened with intractable hiccups and he was seen in the emergency room. He eventually required ventilation and plan is for tracheostomy and PEG tube. PAST MEDICAL HISTORY: 1. COVID pneumonia. 2. Diabetes mellitus. 3. Obesity. 4. Hypertension. 5. Metabolic syndrome. PAST SURGICAL HISTORY: None. FAMILY HISTORY: Per records, none. PHYSICAL EXAMINATION: VITAL SIGNS: Height 5 feet 9 inches, 229 pounds, 33 BMI. Blood pressure 102/61, 50% FiO2, heart rate 78. LUNGS: Clear. No wheezes. ABDOMEN: Soft, nontender. CARDIAC: Regular rate and rhythm without murmur or gallop. EXTREMITIES: Mild edema. LABORATORY DATA: White count 12 and hemoglobin 9.4. Basic metabolic profile; BUN 30, creatinine 0.7, sodium 138. PREHOSPITALIZATION MEDICATIONS: Lisinopril, hydrochlorothiazide, glipizide, metformin. ASSESSMENT AND PLAN: 1. COVID pneumonia, respiratory failure. Plan tracheostomy. Facilitate weaning and care. 2. Malnutrition, dysphagia. Plan PEG tube. 3. Metabolic syndrome. 4. Obesity. 5. Diabetes mellitus. 6. COVID pneumonia. 7. Hypertension. Job ID: [id number]
[2020-07-27] MEDS: Vecuronium 10 MG VIAL IV PRN ×2 (10:33→12:29)
[2020-07-27] MEDS: Morphine 2 MG/ML VIAL SLOW IVP PRN (13:21)
[2020-07-27] MEDS: HumaLOG 300 UNITS/3 ML VIAL SC PRN (16:21)
[2020-07-27] MEDS: Cholecalciferol 1,000 UNITS (25 MCG) TAB PER TUBE SCH (20:08)
[2020-07-28] MEDS: Dextrose 50% Abboject 50 ML SYRINGE SLOW IVP PRN (04:16)
[2020-07-28] MEDS: Propofol 1,000 MG/100 ML VIAL IV PRN ×5 (04:16→21:16)
[2020-07-28 04:23] LABS: #Basophils 0.1 thou/uL (0.0-0.2); #Eosinphils 0.8 thou/uL (0.0-0.7); #Lymphocytes 3.3 thou/uL (1.20-3.40); #Monocytes 0.8 thou/uL (0.11-0.59); #Neutrophils 8.7 thou/uL (1.40-6.50); %Basophils 0.6 % (0.0-1.0); %Eosinophils 5.6 % (0.0-10.0); %Lymphocytes 24.4 % (21.0-51.0); %Monocytes 6.1 % (0.0-10.0); %Neutrophils 63.3 % (42.0-75.0); Hemoglobin 9.4 g/dL (14.0-18.0); Mean Corpuscular Hemoglobin 30.6 pg (27.0-31.0); Mean Corpuscular Volume 95.6 fL (78.0-98.0); Mean Platelet Volume 6.4 fL (7.4-10.4); Platelet Count 421 thou/uL (130-400); RBC Distribution Width 12.9 % (11.5-14.5); Red Blood Cell (RBC) Count 3.06 mill/uL (4.70-6.10); White Blood Cell (WBC) Count 13.7 thou/uL (4.8-10.8)
[2020-07-28 04:43] LABS: ALT (SGPT) 53 U/L (8-55); AST (SGOT) 24 U/L (5-34); Albumin 2.4 g/dL (3.5-5.0); Alkaline Phosphatase 153 U/L (40-110); Anion Gap 11 mmol/L (10-20); BUN (Urea Nitrogen) 31 mg/dL (8.4-25.7); Bilirubin, Total 0.3 mg/dL (0.2-1.2); Calc. Creatinine Clearance 172 mL/min (70-130); Calcium 8.3 mg/dL (7.8-10.44); Carbon Dioxide 36 mmol/L (22-29); Chloride 93 mmol/L (98-107); Globulin 3.7 g/dL (2.4-3.5); Glucose 67 mg/dL (70-105); Potassium 3.9 mmol/L (3.5-5.1); Protein, Total 6.1 g/dL (6.0-8.3); Sodium 136 mmol/L (136-145)
--- NOTE | 2020-07-28 06:24 | PDOC.FM ---
- Subjective Subjective: Sedated and intubated. Episode of hypoglycemia this AM, given amp of D50 with resolution. Unable to wean sedation due to agitation. Tube feeds held for trach and peg this AM. No other acute events overnight. - Objective MAR Reviewed: Yes Vital Signs & Weight: Vital Signs (12 hours) Temp Pulse Resp BP Pulse Ox 07/28/20 04:00 98.6 F 07/28/20 02:36 76 07/28/20 02:00 20 07/28/20 00:00 99.0 F 07/27/20 23:12 81 07/27/20 22:00 20 07/27/20 20:00 99.1 F 20 98 07/27/20 19:32 82 91/60 Weight Admit Weight 96.5 kg Weight 104 kg Most Recent Monitor Data Heart Rate from ECG 82 NIBP 97/61 NIBP BP-Mean 73 Respiration from ECG 16 SpO2 91 I&O: 07/26/20 07/27/20 07/28/20 06:59 06:59 06:59 Intake Total 2241 1538.6 1254 Output Total 2225 2610 1730 Balance 16 -1071.4 -476 Result Diagrams: 07/28/20 03:55 07/28/20 03:30 Phys Exam - Physical Examination sedated, comfortable HEENT: moist MMs ETT and OG in place Neck: supple Respiratory: no wheezing slight rhonchi Bl lung bases, good aeration throughout Cardiovascular: RRR, no significant murmur Gastrointestinal: soft, no distention, positive bowel sounds Minimal non-pitting edema of hands, improved Dx/Plan (1) Acute respiratory failure with hypoxia Code(s): J96.01 - ACUTE RESPIRATORY FAILURE WITH HYPOXIA Status: Acute (2) Bacterial pneumonia, unspecified Code(s): J15.9 - UNSPECIFIED BACTERIAL PNEUMONIA Status: Acute (3) COVID-19 Code(s): U07.1 - COVID-19 Status: Acute (4) CKD (chronic kidney disease) Code(s): N18.9 - CHRONIC KIDNEY DISEASE, UNSPECIFIED Status: Chronic (5) Diabetes Code(s): E11.9 - TYPE 2 DIABETES MELLITUS WITHOUT COMPLICATIONS Status: Chronic (6) Hypertension Code(s): I10 - ESSENTIAL (PRIMARY) HYPERTENSION Status: Chronic - Plan Plan: 54 y/o male with DMII and HTN who presented with SOB found to have COVID-19 PNA. #AHRF 2/2 COVID-19 PNA, possible secondary bacterial infection, off-precautions and abx -Patient reports fluctuating symptoms that started on 06/26 - COVID(+) test on 06/28 -CXR: Worsening COVID PNA with vascular congestion -CTA Chest: Negative for PE, but diffuse ground glass opacities noted -Weaning Dexamethasone to 4mg QAM - will continue to wean -s/p Convalescent Plasma - unable to give Remdesivir due to WYATT/CKD -Initially on Lovenox 40 mg SC daily due to renal function - transitioned to Eliquis - now held for Trach and PEG today -s/p Vanc & Cefepime in ER, Ceftriaxone (07/04-07/08) and Azithromycin (07/04-07/08) -s/p CODE GREEN on 07/16 for worsening respiratory status, hypoglycemia and hypotension -Procal: José Miguel to 4.23 on 07/17 after CODE GREEN - down-trended to 0.3 on 07/22 -ABx initially dc'd as Procal downtrended - Meropenem 07/16 -> 07/26 -Currently intubated and sedated with propofol -Pulmonology: Consulted, recs appreciated- weaning vent as tolerated -Respiratory Sputum Cx: Normal Annelise -Repeat BCx: NGTD -Bi-Level Ventilation: 31/8 w/ FiO2 of 50% - weaning as tolerated, currently stable -Plan for trach and PEG with Dr. Jones today -CM assisting with LTAC placement -Hopeful to wean sedation as well as vent settings after trach and peg placement #Anxiety -Intermittent throughout hospitalization - manifests with intermittent tachycardia, tachypnea and feelings of air hunger -Continue Fluoxetine 20mg daily -Becomes agitated off sedation, will continue to monitor #HTN -Initially on Lisinopril/HCTZ - currently held -Norepinephrine gtt dc'd -Will continue to monitor pressures and restart medication as needed #DM2 -A1C: 10.6 -Currently holding Metformin due to WYATT/CKD; reports he takes Trulicity weekly at "maximum dose" -Previously on Lantus 40u QAM, 45u QPM - although this has been held at times based on episodes of hypoglycemia -Lantus 20u daily - titrating as indicated -Moderate SSI -Q4H Accuchecks -Hypoglycemia Protocol -Steroids are likely contributing to elevated POC Glucose readings although patient's DM2 is likely poorly controlled at baseline #Hyponatremia, resolved -monitor #WYATT on CKD, resolved -Baseline unknown but patient denied known Hx of CKD -Cr: 3.11 > 0.79 -GFR: 21 > Above 90 -Currently holding Metformin PCP: Claude Code: Full Diet: NPO for procedure VTE PPx: Eliquis - HELD for procedure GI PPx: Protonix Lines/Tubes: Right IJ, Fernández Dispo: In critical condition in the ICU s/p intubation on 07/16 due to AHRF 2/2 COVID-19 Pneumonia with suspected bacterial component. Steroid wean and antibiotics d/c'ed. Pulmonology consulted, recs appreciated. Weaning vent as tolerated. Trach and PEG today. looking at LTAC facilities. Addendum - Attending - Attending Attestation Date/Time: 07/28/20 1240 I personally evaluated the patient and discussed the management with Dr. Jarvis I agree with the History, Examination, Assessment and Plan documented above with any addition or exceptions noted below - Patient heading to OR for trach/Peg. Afebrile VSS. A/P: 1) Acute hypoxic resp failure due to COVID pneumonia- plan for trach/PEG today; wean vent support as tolerated. Weaning steroids. 2) DM- adjusting insulin; continue to monitor BG. 3) Discpo- pending LTAC placement.
[2020-07-28] MEDS: Mometasone 100 MCG/Formoterol 5 MCG 120 PUFF INHALER INH SCH ×2 (07:14→19:49)
[2020-07-28] MEDS: Lorazepam 2 MG/ML VIAL SLOW IVP PRN ×3 (07:16→13:54)
[2020-07-28] MEDS ORDERED: Fentanyl CADD 100 ML ONE ×2 (07:56→18:34)
[2020-07-28] MEDS: Fentanyl CADD 100 ML IV SCH ×2 (07:57→18:35)
[2020-07-28] MEDS: Ascorbic Acid 500 mg Chewable Tablet PER TUBE SCH (08:43)
[2020-07-28] MEDS: Dexamethasone 4 mg/ml Vial SLOW IVP SCH (08:43)
[2020-07-28] MEDS: FLUoxetine HCl 20 MG CAP PO SCH (08:43)
[2020-07-28] MEDS: Insulin Glargine 20 UNITS in Pre-Filled Syringe 1 EACH SC SCH (08:43)
[2020-07-28] MEDS: Polyethylene Glycol 3350 17 GM Packet PER TUBE SCH (08:44)
[2020-07-28] MEDS: Pantoprazole 40 MG GRANULES PACKET PER TUBE SCH (08:44)
[2020-07-28] MEDS ORDERED: Rocuronium Bromide 10 MG/ML (10ML VIAL) ONE (09:51)
[2020-07-28] MEDS ORDERED: Vecuronium 10 MG VIAL ONE (09:51)
[2020-07-28] MEDS ORDERED: Bupivacaine 0.25% HCL 30 ML VIAL ONE (09:53)
[2020-07-28] MEDS ORDERED: XYLOCAINE 2%-EPI 1:100,000 20 ML VIAL ONE (09:53)
[2020-07-28] MEDS ORDERED: Fentanyl 250 MCG/5 ML VIAL ONE (09:56)
[2020-07-28] MEDS ORDERED: Midazolam HCl 5 mg/5 ml Vial ONE (09:57)
--- NOTE | 2020-07-28 12:12 | RAD ---
CHEST 1 VIEW: HISTORY: Check tube positioning. COMPARISON: Radiograph of prior day. FINDINGS: Tracheostomy is in place with endotracheal tube tip projecting just over the alice. Possible mach b and right hemidiaphragm and less likely a right basilar pneumothorax. The central venous catheter tip projects in the right atrium. Extensive airspace opacities. IMPRESSION: 1. Tracheostomy tube tip at the alice. 2. Mach band versus less likely right basilar pneumothorax of the right hemidiaphragm. Close attent ion on followup imaging recommended. POS: AH
[2020-07-28] MEDS: HumaLOG 300 UNITS/3 ML VIAL SC PRN ×2 (12:13→15:41)
--- NOTE | 2020-07-28 17:35 | PRG ---
DATE OF SERVICE: 07/28/2020 SUBJECTIVE: Mr. Celaya has clinically done well overnight. He is tentatively on schedule for tracheostomy today. This has been done. He is afebrile. OBJECTIVE: VITAL SIGNS: Respiratory rates in the 20s, FiO2 is 60. Oximetry is in the high 90s. LUNGS: Unchanged. HEART: Unchanged. ABDOMEN: Unchanged. LABORATORY DATA: White count 13.7, hemoglobin 9.4, platelets 421. Sodium 136, potassium 3.9, chloride 93, bicarb 36, BUN 31, creatinine 0.74. IMPRESSION: COVID pneumonia with respiratory failure. We will hopefully make some more progress once there is a tracheostomy in place. Eventually, he will be a candidate for LTAC placement. Job ID: [id number]
[2020-07-28] MEDS: Cholecalciferol 1,000 UNITS (25 MCG) TAB PER TUBE SCH (21:16)
[2020-07-29] MEDS: Morphine 2 MG/ML VIAL SLOW IVP PRN ×3 (01:21→13:31)
[2020-07-29] MEDS: Lorazepam 2 MG/ML VIAL SLOW IVP PRN ×5 (01:21→17:09)
[2020-07-29] MEDS: Acetaminophen 325 MG TAB PO PRN ×2 (01:36→20:42)
[2020-07-29] MEDS ORDERED: Fentanyl CADD 100 ML ONE ×3 (03:56→23:16)
[2020-07-29] MEDS: Propofol 1,000 MG/100 ML VIAL IV PRN ×5 (04:22→20:40)
[2020-07-29 04:39] LABS: ALT (SGPT) 58 U/L (8-55); AST (SGOT) 39 U/L (5-34); Albumin 2.5 g/dL (3.5-5.0); Alkaline Phosphatase 158 U/L (40-110); Anion Gap 10 mmol/L (10-20); BUN (Urea Nitrogen) 31 mg/dL (8.4-25.7); Bilirubin, Total 0.5 mg/dL (0.2-1.2); Calc. Creatinine Clearance 157 mL/min (70-130); Calcium 8.5 mg/dL (7.8-10.44); Carbon Dioxide 37 mmol/L (22-29); Chloride 93 mmol/L (98-107); Globulin 3.9 g/dL (2.4-3.5); Glucose 111 mg/dL (70-105); Potassium 3.7 mmol/L (3.5-5.1); Protein, Total 6.4 g/dL (6.0-8.3); Sodium 136 mmol/L (136-145)
[2020-07-29 04:40] LABS: #Basophils 0.1 thou/uL (0.0-0.2); #Eosinphils 0.6 thou/uL (0.0-0.7); #Monocytes 1.1 thou/uL (0.11-0.59); #Neutrophils 12.2 thou/uL (1.40-6.50); %Basophils 0.5 % (0.0-1.0); %Eosinophils 3.3 % (0.0-10.0); %Lymphocytes 17.7 % (21.0-51.0); %Monocytes 6.4 % (0.0-10.0); %Neutrophils 72.1 % (42.0-75.0); Hemoglobin 9.8 g/dL (14.0-18.0); Mean Corpuscular HGB CONC 33.1 g/dL (32.0-36.0); Mean Corpuscular Hemoglobin 31.8 pg (27.0-31.0); Mean Corpuscular Volume 96.1 fL (78.0-98.0); Mean Platelet Volume 6.7 fL (7.4-10.4); Platelet Count 456 thou/uL (130-400); RBC Distribution Width 12.9 % (11.5-14.5); Red Blood Cell (RBC) Count 3.09 mill/uL (4.70-6.10)
[2020-07-29] MEDS: Fentanyl CADD 100 ML IV SCH ×2 (04:45→23:38)
--- NOTE | 2020-07-29 05:31 | PDOC.FM ---
- Subjective Subjective: Pt is trach'ed and sedated 2/2 covid pneumonia - Objective Vital Signs & Weight: Vital Signs (12 hours) Temp Pulse Resp Pulse Ox 07/29/20 04:00 98.9 F 16 07/29/20 02:34 106 H 07/29/20 02:00 16 07/29/20 00:00 99.7 F H 25 H 07/28/20 22:58 96 07/28/20 22:00 20 07/28/20 20:00 99.1 F 20 98 07/28/20 19:50 85 07/28/20 18:00 26 H Weight Admit Weight 96.5 kg Weight 104 kg Most Recent Monitor Data Heart Rate from ECG 98 NIBP 99/66 NIBP BP-Mean 77 Respiration from ECG 16 SpO2 92 I&O: 07/27/20 07/28/20 07/29/20 06:59 06:59 06:59 Intake Total 1538.6 1712 1267 Output Total 2610 1830 1745 Balance -1071.4 -118 -478 Result Diagrams: 07/29/20 03:50 07/29/20 03:50 Phys Exam - Physical Examination tracheostomy on bilevel support HEENT: sclera anicteric Neck: no JVD, full ROM coarse breath sounds Cardiovascular: RRR, no significant murmur Gastrointestinal: soft, non-tender Musculoskeletal: pulses present Skin: no rash, normal turgor Dx/Plan - Plan Plan: 54 y/o male with DMII and HTN who presented with SOB found to have COVID-19 PNA. #AHRF 2/2 COVID-19 PNA, possible secondary bacterial infection, off-precautions and abx -Patient reports fluctuating symptoms that started on 06/26 - COVID(+) test on 06/28 -CXR: fairly unchanged, diffuse disease noted -CTA Chest: Negative for PE, but diffuse ground glass opacities noted -Weaning Dexamethasone to 4mg QAM on 06/26 - will continue to wean -s/p Convalescent Plasma - unable to give Remdesivir due to WYATT/CKD -Initially on Lovenox 40 mg SC daily due to renal function - transitioned to E liquis - restart eliquis 07/30 -s/p Vanc & Cefepime in ER, Ceftriaxone (07/04-07/08) and Azithromycin (07/04-07/08) -s/p CODE GREEN on 07/16 for worsening respiratory status, hypoglycemia and hypotension -Procal: José Miguel to 4.23 on 07/17 after CODE GREEN - down-trended to 0.3 on 07/22 -ABx initially dc'd as Procal downtrended - Meropenem 07/16 -> 07/26 -Trach and Peg 07/28/[address] Jones -Pulmonology: Consulted, recs appreciated- weaning vent as tolerated -Respiratory Sputum Cx: Normal Annelise -Repeat BCx: NGTD -Bi-Level Ventilation: 36/8, 90% FiO2 -CM assisting with LTAC placement -Hopeful to wean sedation as well as vent settings after trach and peg placement #Anxiety -Intermittent throughout hospitalization - manifests with intermittent tachycardia, tachypnea and feelings of air hunger -Continue Fluoxetine 20mg daily -Ativan prn -Becomes agitated off sedation, will continue to monitor #HTN -Initially on Lisinopril/HCTZ - currently held -Norepinephrine gtt dc'd -Will continue to monitor pressures and restart medication as needed #DM2 -A1C: 10.6 -Currently holding Metformin due to WYATT/CKD; reports he takes Trulicity weekly at "maximum dose" -Previously on Lantus 40u QAM, 45u QPM - although this has been held at times based on episodes of hypoglycemia -Lantus 20u daily - titrating as indicated -Moderate SSI -Q4H Accuchecks -Hypoglycemia Protocol -Steroids are likely contributing to elevated POC Glucose readings although patient's DM2 is likely poorly controlled at baseline #Hyponatremia, resolved -monitor #WYATT on CKD, resolved -Baseline unknown but patient denied known Hx of CKD -Cr: 3.11 > 0.79 -GFR: 21 > Above 90 -Currently holding Metformin PCP: Claude Code: Full Diet: Tube feeds with free water flush - 5 ml residual noted this am VTE PPx: Eliquis - will discuss restarting today after procedure GI PPx: Protonix per tube Lines/Tubes: Right IJ, Fernández Currently trach and sedated with propofol, fentanyl Dispo: In critical condition in the ICU s/p intubation on 07/16 due to AHRF 2/2 COVID-19 Pneumonia with suspected bacterial component. Steroid wean and antibiotics d/c'ed. Pulmonology consulted, recs appreciated. Weaning vent as tolerated. Trach and PEG 07/28. looking at LTAC facilities. Addendum - Attending - Attending Attestation Date/Time: 07/29/20 8131 I personally evaluated the patient and discussed the management with the team. I agree with the History, Examination, Assessment and Plan documented above with any addition or exceptions noted below.
[2020-07-29] MEDS: Vecuronium 10 MG VIAL IV PRN ×4 (06:10→17:10)
--- NOTE | 2020-07-29 06:35 | OP ---
DATE OF PROCEDURE: 07/28/2020 PREOPERATIVE DIAGNOSIS: 1. COVID pneumonia. 2. Respiratory failure. 3. Malnutrition. 4. Dysphagia. POSTOPERATIVE DIAGNOSES: 1. COVID pneumonia. 2. Respiratory failure. 3. Malnutrition. 4. Dysphagia. PROCEDURES PERFORMED: 1. Tracheostomy with #8 Bivona. 2. Percutaneous endoscopic gastrostomy tube. ANESTHESIA: General, local with 0.5% Marcaine 30 mL, mixed with 2% Xylocaine with epinephrine 20 mL. DESCRIPTION OF PROCEDURE: The patient was taken to the operating room where under general anesthesia, neck and chest were prepared with ChloraPrep and draped in routine fashion. Local anesthetic was infiltrated in the skin and subcutaneous tissue about the operative site. An incision was made in the anterior lower neck above the manubrium, carried down to skin and platysma, dividing anterior jugular veins between 3-0 silk ties and reflecting the strap muscles laterally to reveal the isthmus of the thyroid, which was divided and 2 anterior lateral strap sutures of 3-0 Prolene placed although later the left one came out. Anterior trachea excised over 2 cartilaginous rings below the cricoid. Under direct visualization, the trach tube withdrawn and initially #8 Shiley placed and later replaced with 8 Bivona. Atwana placed in the subcutaneous tissues. Good hemostasis noted. Skin approximated on either side with 3-0 Prolene and tracheostomy appliance secured to skin with 3-0 Prolene. Tracheostomy securing straps applied. The patient tolerated the procedure well. The endoscope was placed per os under direct visualization and using air insufflation passed throughout the esophagus into the stomach, insufflating the stomach, noting a good indentation in the left medial subxiphoid. A stab incision was made, trocar catheter introduced percutaneously into the gastric lumen, visualized endoscopically, advancing a wire, grasping it with a snare, introduced through the endoscope and pulled the endoscope and wire out the mouth. Wire connected to the feeding tube, lubricated, pulled back down through the mouth and esophagus, fixating it to the abdominal wall with a fixation device, and tailoring the tube to appropriate length and applying the fixation device and feeding device. The patient tolerated the procedure well. Job ID: [id number]
[2020-07-29] MEDS: Mometasone 100 MCG/Formoterol 5 MCG 120 PUFF INHALER INH SCH ×2 (07:48→20:03)
[2020-07-29] MEDS: Polyethylene Glycol 3350 17 GM Packet PER TUBE SCH (08:10)
[2020-07-29] MEDS: Ascorbic Acid 500 mg Chewable Tablet PER TUBE SCH (08:10)
[2020-07-29] MEDS: FLUoxetine HCl 20 MG CAP PO SCH (08:10)
[2020-07-29] MEDS: Pantoprazole 40 MG GRANULES PACKET PER TUBE SCH (08:10)
[2020-07-29] MEDS: Dexamethasone 4 mg/ml Vial SLOW IVP SCH (08:11)
--- NOTE | 2020-07-29 08:21 | RAD ---
Portable frontal chest radiograph: 07/29/2020 COMPARISON: 07/28/2020 HISTORY: Ventilated patient FINDINGS: Stable right vascular catheter and tracheostomy tube. Extensive coarse interstitial and lashae eolar/groundglass opacity bilaterally suspicious for Covid pneumonia, unchanged. IMPRESSION: No significant interval change.
[2020-07-29] MEDS: Insulin Glargine 20 UNITS in Pre-Filled Syringe 1 EACH SC SCH (09:40)
[2020-07-29] MEDS ORDERED: hydrALAZINE 20 MG/ML VIAL SLOW IVP PRN (10:10)
[2020-07-29] MEDS ORDERED: Furosemide 40 MG/4 ML VIAL ONE (11:03)
[2020-07-29] MEDS ORDERED: Furosemide 100 MG/10 ML VIAL SLOW IVP SCH (11:15)
[2020-07-29] MEDS: Albuterol Sulfate 2.5 mg/3 ml Neb NEB SCH ×3 (12:00→20:45)
[2020-07-29] MEDS: HumaLOG 300 UNITS/3 ML VIAL SC PRN ×3 (13:01→20:40)
--- NOTE | 2020-07-29 17:12 | PRG ---
DATE OF SERVICE: 07/29/2020 SUBJECTIVE: Pavan Celaya was ventilated overnight. He had successful tracheostomy yesterday. OBJECTIVE: LUNGS: Equal breath sounds today. HEART: Regular rhythm. ABDOMEN: Soft. EXTREMITIES: Without asymmetry. DIAGNOSTIC STUDIES: Intake and output negative again today Today, he has required paralytics increase in respiratory rate to compensate for his paralytics. Chest radiograph does not show pneumothorax. He still has diffuse infiltrates. IMPRESSION: COVID pneumonia with respiratory failure, not progressing at this time. PLAN: Continue supportive care. Job ID: [id number]
[2020-07-29] MEDS: Cholecalciferol 1,000 UNITS (25 MCG) TAB PER TUBE SCH (20:40)
[2020-07-30] MEDS: Propofol 1,000 MG/100 ML VIAL IV PRN ×4 (00:29→19:30)
[2020-07-30] MEDS: Acetaminophen 325 MG TAB PO PRN ×2 (01:00→08:39)
[2020-07-30] MEDS: Vecuronium 10 MG VIAL IV PRN ×4 (01:16→16:01)
[2020-07-30] MEDS: Lorazepam 2 MG/ML VIAL SLOW IVP PRN ×4 (01:16→16:01)
[2020-07-30 04:06] LABS: #Eosinphils 0.3 thou/uL (0.0-0.7); #Lymphocytes 1.7 thou/uL (1.20-3.40); #Monocytes 1.3 thou/uL (0.11-0.59); #Neutrophils 13.3 thou/uL (1.40-6.50); %Basophils 0.2 % (0.0-1.0); %Eosinophils 1.8 % (0.0-10.0); %Lymphocytes 10.4 % (21.0-51.0); %Monocytes 7.8 % (0.0-10.0); %Neutrophils 79.8 % (42.0-75.0); Hemoglobin 9.6 g/dL (14.0-18.0); Mean Corpuscular HGB CONC 30.4 g/dL (32.0-36.0); Mean Corpuscular Hemoglobin 28.8 pg (27.0-31.0); Mean Corpuscular Volume 94.9 fL (78.0-98.0); Mean Platelet Volume 6.4 fL (7.4-10.4); Platelet Count 517 thou/uL (130-400); RBC Distribution Width 12.8 % (11.5-14.5); Red Blood Cell (RBC) Count 3.32 mill/uL (4.70-6.10); White Blood Cell (WBC) Count 16.7 thou/uL (4.8-10.8)
[2020-07-30 04:39] LABS: ALT (SGPT) 83 U/L (8-55); AST (SGOT) 46 U/L (5-34); Albumin 2.5 g/dL (3.5-5.0); Alkaline Phosphatase 183 U/L (40-110); BUN (Urea Nitrogen) 31 mg/dL (8.4-25.7); Bilirubin, Total 0.6 mg/dL (0.2-1.2); Calc. Creatinine Clearance 123 mL/min (70-130); Calcium 8.6 mg/dL (7.8-10.44); Globulin 4.2 g/dL (2.4-3.5); Glucose 126 mg/dL (70-105); Protein, Total 6.7 g/dL (6.0-8.3)
[2020-07-30 04:48] LABS: Anion Gap 14 mmol/L (10-20); Carbon Dioxide 35 mmol/L (22-29); Chloride 91 mmol/L (98-107); Potassium 3.9 mmol/L (3.5-5.1); Sodium 136 mmol/L (136-145)
--- NOTE | 2020-07-30 06:16 | PDOC.FM ---
- Subjective Subjective: Pt has a tracheostomy and on respiratory support. Sedated. - Objective Vital Signs & Weight: Vital Signs (12 hours) Temp Pulse Resp Pulse Ox 07/30/20 04:00 100.4 F H 24 H 07/30/20 03:00 119 H 07/30/20 02:00 24 H 07/30/20 00:00 100.7 F H 24 H 07/29/20 22:22 114 H 07/29/20 22:00 24 H 07/29/20 20:13 127 H 07/29/20 20:00 100.3 F H 24 H 96 Weight Admit Weight 96.5 kg Weight 104 kg Most Recent Monitor Data Heart Rate from ECG 121 NIBP 108/67 NIBP BP-Mean 80 Respiration from ECG 24 SpO2 90 I&O: 07/28/20 07/29/20 07/30/20 06:59 06:59 06:59 Intake Total 1712 1734 2420 Output Total 1830 1920 3830 Balance -118 186 1410 Result Diagrams: 07/30/20 03:45 07/30/20 03:45 Phys Exam - Physical Examination Sedated HEENT: sclera anicteric Neck: no JVD coarse breath sounds regular rhythm, tachycardia Gastrointestinal: soft, no distention Musculoskeletal: pulses present 1+ pitting edema in extremities Skin: no rash Dx/Plan - Plan Plan: 54 y/o male with DMII and HTN who presented with SOB found to have COVID-19 PNA. #AHRF 2/2 COVID-19 PNA, possible secondary bacterial infection, off-precautions and abx -Patient reports fluctuating symptoms that started on 06/26 - COVID(+) test on 06/28 -CXR: fairly unchanged, diffuse disease noted -CTA Chest: Negative for PE, but diffuse ground glass opacities noted -Weaning Dexamethasone to 4mg QAM on 06/26 - will continue to wean 2 mg today -s/p Convalescent Plasma - unable to give Remdesivir due to WYATT/CKD -Initially on Lovenox 40 mg SC daily due to renal function - transitioned to Eliquis - restart eliquis 07/30 -s/p Vanc & Cefepime in ER, Ceftriaxone (07/04-07/08) and Azithromycin () -s/p CODE GREEN on 07/16 for worsening respiratory status, hypoglycemia and hypotension -Procal: José Miguel to 4.23 on 07/17 after CODE GREEN - down-trended to 0.3 on 07/22 -ABx initially dc'd as Procal downtrended - Meropenem 07/16 -> 07/26 -Trach and Peg 07/28/[address] Jones -Pulmonology: Consulted, recs appreciated- weaning vent as tolerated -Respiratory Sputum Cx: Normal Annelise -Repeat BCx: NGTD -Bi-Level Ventilation: 36/8, 90% FiO2 -CM assisting with LTAC placement -Hopeful to wean sedation as well as vent settings after trach and peg placement #Fever, Tachycardia, Leukocytosis -Pt has been on broad spectrum abx -Pending procalcitonin -Pending EKG -Will discuss BCx, UCx, and broad spectrum abx on rounds #Anxiety -Intermittent throughout hospitalization - manifests with intermittent tachycardia, tachypnea and feelings of air hunger -Continue Fluoxetine 20mg daily -Ativan prn -Becomes agitated off sedation, will continue to monitor #HTN -Initially on Lisinopril/HCTZ - currently held -Norepinephrine gtt dc'd -Will continue to monitor pressures and restart medication as needed #DM2 -A1C: 10.6 -Currently holding Metformin due to WYATT/CKD; reports he takes Trulicity weekly at "maximum dose" -Previously on Lantus 40u QAM, 45u QPM - although this has been held at times based on episodes of hypoglycemia -Lantus 20u daily - titrating as indicated -Moderate SSI -Q4H Accuchecks -Hypoglycemia Protocol -Steroids are likely contributing to elevated POC Glucose readings although patient's DM2 is likely poorly controlled at baseline #Hyponatremia, resolved -monitor #WYATT on CKD, resolved -Baseline unknown but patient denied known Hx of CKD -Cr: 3.11 > 0.79 -GFR: 21 > Above 90 -Currently holding Metformin PCP: Claude Code: Full Diet: Tube feeds with free water flush - 30 ml residual noted this am VTE PPx: Eliquis - will discuss restarting 07/30 GI PPx: Protonix per tube Lines/Tubes: Right IJ, Fernández Currently trach and sedated with propofol, fentanyl Abx: None Dispo: In critical condition in the ICU s/p intubation on 07/16 due to AHRF 2/2 COVID-19 Pneumonia with suspected bacterial component. Steroid wean and antibiotics d/c'ed. Pulmonology consulted, recs appreciated. Weaning vent as tolerated. Trach and PEG 07/28. looking at LTAC facilities. Addendum - Attending - Attending Attestation Date/Time: 07/30/20 1971 I personally evaluated the patient and discussed the management with Dr. Royce farooq. I agree with the History, Examination, Assessment and Plan documented above with any addition or exceptions noted below. Now recurrent choking appearing movements with each breath. Now febrile. Davila culture. Remove CVC after culture. Expand antimicrobial spectrum.
[2020-07-30] MEDS: Albuterol Sulfate 2.5 mg/3 ml Neb NEB SCH ×4 (07:06→19:11)
[2020-07-30] MEDS: Mometasone 100 MCG/Formoterol 5 MCG 120 PUFF INHALER INH SCH ×2 (07:06→19:11)
[2020-07-30] MEDS: FLUoxetine HCl 20 MG CAP PO SCH (08:38)
[2020-07-30] MEDS: Pantoprazole 40 MG GRANULES PACKET PER TUBE SCH (08:38)
[2020-07-30] MEDS: Ascorbic Acid 500 mg Chewable Tablet PER TUBE SCH (08:38)
[2020-07-30] MEDS: Polyethylene Glycol 3350 17 GM Packet PER TUBE SCH (08:38)
[2020-07-30] MEDS: Dexamethasone 4 mg/ml Vial SLOW IVP SCH (08:39)
[2020-07-30] MEDS ORDERED: Fentanyl CADD 100 ML ONE ×2 (09:12→18:29)
[2020-07-30] MEDS: Fentanyl CADD 100 ML IV SCH (09:13)
[2020-07-30] MEDS: Insulin Glargine 20 UNITS in Pre-Filled Syringe 1 EACH SC SCH (09:14)
[2020-07-30] MEDS: HumaLOG 300 UNITS/3 ML VIAL SC PRN ×3 (09:20→15:30)
--- NOTE | 2020-07-30 10:11 | RAD ---
PORTABLE CHEST: Date: 07/30/2020 PROVIDED CLINICAL HISTORY: Pneumonia. FINDINGS: Comparison with 07/29/2020. Tracheostomy appliance and right-sided central line are redemonstrated in similar positions. Extensiv e bilateral lung consolidation is redemonstrated. No definite evidence for pneumothorax. Blunting of each costophrenic angle may be present, with pleural fluid not excluded. IMPRESSION: Similar radiographic appearance of the chest. POS: RALPH
[2020-07-30] MEDS ORDERED: Fluconazole In NaCl,Iso-Osm 800 MG in Premix Bag 1 BAG IVPB SCH (11:45)
[2020-07-30] MEDS: Acetaminophen 325 MG TAB PO SCH ×2 (12:10→20:15)
[2020-07-30] MEDS: MEROPENEM 1 GM/50 ML 1 GM in Premix Bag 1 BAG IVPB SCH ×2 (12:12→21:39)
[2020-07-30] MEDS ORDERED: Meropenem 1 GM in Sodium Chloride 0.9% 100 ML IVPB SCH (14:00)
[2020-07-30] MEDS: Fluconazole In NaCl,Iso-Osm 400 MG in Premix Bag 1 BAG IVPB SCH ×2 (15:26→17:24)
--- NOTE | 2020-07-30 15:37 | PRG ---
DATE OF SERVICE: 07/30/2020 Pavan Celaya remains mechanically ventilated. Respiratory rates in the 20s, FiO2 is at 55, blood pressure 114/83. He has had a core temperature that is mildly elevated. He has been re-cultured. His lungs, heart, and abdomen are otherwise unchanged. White count 16.7, hemoglobin 9.6, platelets 517. Electrolytes; sodium 136, potassium 3.9, chloride 91, bicarb 35, BUN 31, creatinine 1.03. Liver enzymes are still mildly elevated. No significant change in his chest x-ray. He has been re-cultured and antibiotics have been adjusted. Continue with supportive care. His was updated by the house staff. Job ID: [id number]
[2020-07-30] MEDS: Cholecalciferol 1,000 UNITS (25 MCG) TAB PER TUBE SCH (21:39)
[2020-07-31] MEDS: Lorazepam 2 MG/ML VIAL SLOW IVP PRN ×3 (00:47→14:22)
[2020-07-31] MEDS: Vecuronium 10 MG VIAL IV PRN ×2 (00:52→02:20)
[2020-07-31] MEDS: Propofol 1,000 MG/100 ML VIAL IV PRN ×3 (00:56→12:05)
[2020-07-31] MEDS ORDERED: VANCOMYCIN 2 GRAM/400 ML BAG 2 GM in Premix Bag 1 BAG IVPB SCH ×2 (01:30→12:00)
[2020-07-31] MEDS: Acetaminophen 325 MG TAB PO SCH ×2 (03:15→12:05)
[2020-07-31 03:57] LABS: Base Excess (BEa) 6.8 mEq/L (-2.0 to +3.0); Calcium, Ionized (arterial) 1.12 mmol/L (1.12-1.30); Carboxyhemoglobin (COHb) 0.9 gm% (0.0-3.0); Hemoglobin (Hb) 11.2 g/dL (14.0-18.0); Potassium - ABG Lab 4.29 mmol/L (3.70-5.30)
[2020-07-31 03:58] LABS: CO2 Tension 117.6 mmHg (35.0-45.0); pH, Arterial 7.14 (7.35-7.45)
[2020-07-31 03:59] LABS: O2 Tension (PaO2), arterial 59.2 mmHg (80.0-100.0); Puncture Site RBA
[2020-07-31 04:27] LABS: Band 4 % (5-11); Eosinophils 3 % (0-10); Hemoglobin 10.3 g/dL (14.0-18.0); Lymphocytes 10 % (21-51); MDiff Complete? YES; Mean Corpuscular HGB CONC 30.9 g/dL (32.0-36.0); Mean Corpuscular Hemoglobin 29.7 pg (27.0-31.0); Mean Corpuscular Volume 95.9 fL (78.0-98.0); Mean Platelet Volume 6.8 fL (7.4-10.4); Metamyelocyte 2 % (0-0); Monocytes 8 % (0-10); Neutrophil 73 % (42-75); Platelet Count 588 thou/uL (130-400); Platelet Morphology Comment Appears Increased; RBC Distribution Width 13.2 % (11.5-14.5); Red Blood Cell (RBC) Count 3.47 mill/uL (4.70-6.10); White Blood Cell (WBC) Count 21.8 thou/uL (4.8-10.8)
[2020-07-31 04:29] LABS: ALT (SGPT) 78 U/L (8-55); AST (SGOT) 58 U/L (5-34); Albumin 2.4 g/dL (3.5-5.0); Alkaline Phosphatase 200 U/L (40-110); Anion Gap 16 mmol/L (10-20); BUN (Urea Nitrogen) 31 mg/dL (8.4-25.7); Calc. Creatinine Clearance 121 mL/min (70-130); Calcium 8.2 mg/dL (7.8-10.44); Carbon Dioxide 30 mmol/L (22-29); Chloride 93 mmol/L (98-107); Globulin 4.4 g/dL (2.4-3.5); Glucose 273 mg/dL (70-105); Potassium 4.7 mmol/L (3.5-5.1); Protein, Total 6.8 g/dL (6.0-8.3); Sodium 134 mmol/L (136-145)
[2020-07-31] MEDS: HumaLOG 300 UNITS/3 ML VIAL SC PRN ×2 (04:42→08:10)
[2020-07-31] MEDS ORDERED: Fentanyl CADD 100 ML ONE (05:03)
--- NOTE | 2020-07-31 05:49 | PDOC.FM ---
- Subjective Subjective: Intubated and sedated. - Objective MAR Reviewed: Yes Vital Signs & Weight: Vital Signs (12 hours) Temp Pulse Resp BP Pulse Ox 07/31/20 04:00 24 H 07/31/20 03:15 100.5 F H 147 H 24 H 129/87 07/31/20 02:00 100.5 F H 24 H 07/31/20 00:00 99.3 F 24 H 07/30/20 22:00 24 H 07/30/20 20:15 98.9 F 110 H 24 H 92/59 L 07/30/20 20:00 98.9 F 24 H 94 L 07/30/20 18:00 24 H Weight Admit Weight 96.5 kg Weight 101.2 kg Most Recent Monitor Data Heart Rate from ECG 141 NIBP 126/89 NIBP BP-Mean 101 Respiration from ECG 24 SpO2 95 I&O: 07/29/20 07/30/20 07/31/20 06:59 06:59 06:59 Intake Total 1734 2997 2749 Output Total 1920 3890 1560 Balance -186 -893 1189 Result Diagrams: 07/31/20 03:53 07/31/20 03:53 Phys Exam - Physical Examination Intubated and sedated. HEENT: PERRLA Neck: no JVD Coarse crackles diffusely. Cardiovascular: no significant murmur Tachycardic Gastrointestinal: soft, positive bowel sounds Musculoskeletal: pulses present, edema present Unable to assess. Skin: no rash Dx/Plan (1) Acute respiratory failure with hypoxia Code(s): J96.01 - ACUTE RESPIRATORY FAILURE WITH HYPOXIA Status: Acute (2) Bacterial pneumonia, unspecified Code(s): J15.9 - UNSPECIFIED BACTERIAL PNEUMONIA Status: Acute (3) COVID-19 Code(s): U07.1 - COVID-19 Status: Acute (4) CKD (chronic kidney disease) Code(s): N18.9 - CHRONIC KIDNEY DISEASE, UNSPECIFIED Status: Chronic (5) Diabetes Code(s): E11.9 - TYPE 2 DIABETES MELLITUS WITHOUT COMPLICATIONS Status: Chronic (6) Hypertension Code(s): I10 - ESSENTIAL (PRIMARY) HYPERTENSION Status: Chronic - Plan Plan: 54 y/o male with DMII and HTN who presented with SOB found to have COVID-19 PNA. #AHRF 2/2 COVID-19 PNA, possible secondary bacterial infection, off-precautions and abx -Symptom onset 06/26. COVID(+) test on 06/28. Off precautions. -Pulmonology: Consulted, recs appreciated, not weanable. On Bi-Level Ventilation: 38/8, 55% FiO2. -CTA Chest: Negative for PE, but diffuse ground glass opacities noted -Weaning Dexamethasone, on 2mg. -s/p Convalescent Plasma - unable to give Remdesivir due to WYATT/CKD -s/p Vanc & Cefepime in ER, Ceftriaxone (07/04-07/08) and Azithromycin (07/04-07/08) -ABx initially dc'd as Procal downtrended - Meropenem 07/16 -> 07/26, restarted 07/30. -Trach and Peg 07/28/[address] Jones - d/c planning: LTAC? #Fever, Tachycardia, Leukocytosis -Pt is on broad spectrum abx and antifungal. -Repeat cultures pending. -Procal downtrending. #Anxiety -Intermittent throughout hospitalization - manifests with intermittent tachycardia, tachypnea and feelings of air hunger -Continue Fluoxetine 20mg daily -Ativan prn -Becomes agitated off sedation, will continue to monitor #HTN -Initially on Lisinopril/HCTZ - currently held -Norepinephrine gtt dc'd -Will continue to monitor pressures and restart medication as needed #DM2 -A1C: 10.6 -Currently holding Metformin due to WYATT/CKD; reports he takes Trulicity weekly at "maximum dose" -Previously on Lantus 40u QAM, 45u QPM - although this has been held at times based on episodes of hypoglycemia -Increase Lantus to 25u -Moderate SSI -Q4H Accuchecks -Hypoglycemia Protocol -Steroids are likely contributing to elevated POC Glucose readings although patient's DM2 is likely poorly controlled at baseline #Hyponatremia, resolved #WYATT on CKD, resolved -Baseline unknown but patient denied known Hx of CKD -Currently holding Metformin PCP: Claude Code: Full Diet: Tube feeds with free water flush VTE PPx: Restart lovenox 07/31. GI PPx: Protonix per tube Lines/Tubes: Fernández Currently trach and sedated with propofol, fentanyl Dispo: In critical condition in the ICU s/p intubation on 07/16 due to AHRF 2/2 COVID-19 Pneumonia with suspected bacterial component. Steroid wean and antibiotics d/c'ed. Pulmonology consulted, recs appreciated. Weaning vent as tolerated. Trach and PEG 07/28. looking at LTAC facilities. Addendum - Attending - Attending Attestation Date/Time: 07/31/20 1020 I personally evaluated the patient and discussed the management with Dr. Thompson. I agree with the History, Examination, Assessment and Plan documented above with any addition or exceptions noted below.
[2020-07-31] MEDS: MEROPENEM 1 GM/50 ML 1 GM in Premix Bag 1 BAG IVPB SCH ×2 (06:25→12:06)
[2020-07-31] MEDS: Mometasone 100 MCG/Formoterol 5 MCG 120 PUFF INHALER INH SCH (07:44)
[2020-07-31] MEDS: Albuterol Sulfate 2.5 mg/3 ml Neb NEB SCH ×2 (07:48→12:05)
[2020-07-31] MEDS: Dexamethasone 4 mg/ml Vial SLOW IVP SCH (08:04)
[2020-07-31] MEDS: FLUoxetine HCl 20 MG CAP PO SCH (08:04)
[2020-07-31] MEDS: Pantoprazole 40 MG GRANULES PACKET PER TUBE SCH (08:04)
[2020-07-31] MEDS: Polyethylene Glycol 3350 17 GM Packet PER TUBE SCH (08:04)
[2020-07-31] MEDS: Ascorbic Acid 500 mg Chewable Tablet PER TUBE SCH (08:04)
[2020-07-31] MEDS: Insulin Glargine 20 UNITS in Pre-Filled Syringe 1 EACH SC SCH (08:10)
--- NOTE | 2020-07-31 08:24 | RAD ---
Portable frontal chest radiograph: 07/31/2020 COMPARISON: 07/29/2020 HISTORY: Ventilated patient FINDINGS: Stable tracheostomy tube. Interval removal of right vascular catheter. Severe extensive interstitial and alveolar opacity noted bilaterally with slight sparing of the lung apices, similar when compared to prior imaging. IMPRESSION: Interval removal of right vascular catheter-otherwise unchanged.
--- NOTE | 2020-07-31 08:43 | PRG ---
DATE OF SERVICE: 07/31/2020 TIME SPENT: This is a 30-minute critical care time. SUBJECTIVE: The patient remains on mechanical ventilation through tracheostomy. Overall, he is unchanged. OBJECTIVE: VITAL SIGNS: Temperature 99.8 with a T-max of 101.7, pulse 130s, blood pressure 121/83. 24-hour intake 2997, output 3890. HEENT: Unremarkable. NECK: Trach in good position. LUNGS: Coarse rhonchi and crackles. CARDIOVASCULAR: S1, S2. Tachycardic. ABDOMEN: Soft and nontender. EXTREMITIES: Edematous throughout. LABORATORY DATA: White blood cell count 21.8, hematocrit 33.3, and platelet count 588. pH 7.14, pCO2 of 117, pO2 of 59, on bilevel 38/8, FiO2 of 90%. Sodium 134, potassium 4.7, chloride 93, CO2 of 30, BUN 31, creatinine 1.1, glucose 273. Cultures obtained yesterday not showed any growth to date and he is currently receiving fluconazole, vancomycin, and meropenem empirically. ASSESSMENT: 1. COVID-19 pneumonia. 2. Respiratory failure requiring mechanical ventilation and tracheostomy placement. 3. Febrile. PLAN: The patient's compliance is horrible and therefore he is not weanable from mechanical ventilation. I doubt his current illness is survivable. If he were to survive, this is going to take months. The patient is a candidate for LTAC. I think that process has been started. We will follow. Job ID: [id number]
[2020-07-31] MEDS ORDERED: Insulin Glargine 25 UNITS in Pre-Filled Syringe 1 EACH SC SCH (08:59)
[2020-07-31] MEDS ORDERED: Enoxaparin Sodium 40 MG/0.4 ML SYRINGE SC SCH (09:00)
[2020-07-31 09:37] VITALS: TEMP 98.8
--- NOTE | 2020-07-31 10:25 | PDOC.EVN ---
Event Note - Event Note Event Note: Family was able to meet at patient's bedside. They decided overnight to move to DNAR. This morning they decided to transition to hospice/comfort measures. Hospice consult placed. Scopolamine patch ordered to reduce secretions. Delilah BENTLEY PGY2
[2020-07-31] MEDS ORDERED: Scopolamine 1.5 mg/72 hour Patch TD SCH (11:00)
[2020-07-31] MEDS ORDERED: Fluconazole In NaCl,Iso-Osm 400 MG in Premix Bag 1 BAG IVPB SCH (12:00)
[2020-07-31 12:04] VITALS: BP 104/78
--- NOTE | 2020-07-31 12:23 | PDOC.FMACP ---
Advance Care Planning - Problem (1) Palliative care encounter Status: Acute Code(s): Z51.5 - ENCOUNTER FOR PALLIATIVE CARE (2) Acute respiratory failure with hypoxia Status: Acute Code(s): J96.01 - ACUTE RESPIRATORY FAILURE WITH HYPOXIA (3) COVID-19 Status: Acute Code(s): U07.1 - COVID-19 (4) CKD (chronic kidney disease) Status: Chronic Code(s): N18.9 - CHRONIC KIDNEY DISEASE, UNSPECIFIED (5) Diabetes Status: Chronic Code(s): E11.9 - TYPE 2 DIABETES MELLITUS WITHOUT COMPLICATIONS (6) Hypertension Status: Chronic Code(s): I10 - ESSENTIAL (PRIMARY) HYPERTENSION - Note Participants: family, surrogate decision-maker, palliative care Summary: Palliative care addressed Advanced Care Planning with patient . The diagnosis, prognosis and goals of care were discussed. Appropriate forms and documentation to accomplish the goals of care were discussed. All questions were answered. She relayed "He would not desire to live like this". Electing to compassionately extubate and transition to comfort measures. Confirmed DNAR status. Reviewed comfort medications, suggested Morphine 4mg q 15 min if needed in the event fentanyl IV was stopped. Electing to seek care with hospice, CM aware. [facility] to evaluate patient Emotional support offered to and children. Spiritual care aware. Please also refer to Palliative care notes in note section. Time Spent (mins): 40
[2020-07-31] MEDS: Morphine 2 MG/ML VIAL SLOW IVP PRN (14:22)
--- NOTE | 2020-08-01 09:39 | RAD ---
CHEST 1 VIEW: Date: 08/01/2020 HISTORY: Respiratory insufficiency, Code BLUE. COMPARISON: 07/31/2020, 0410 hours. FINDINGS: Monitor leads overlie and somewhat obscure the chest. NG tube in place. Endotracheal tube tip approxi mately 4.0 cm from the alice. There are progressively dense homogeneous alveolar opacity changes thr oughout both lungs, becoming much more dense than on the earlier study, with some prominent associate d air bronchograms. No significant cardiomegaly or pleural effusion. No significant midline shift. IMPRESSION: 1. NG tube and endotracheal tube in place. 2. Prominent progressive confluent alveolar opacity changes throughout both lungs becoming much more dense, particularly in the upper mid lung zones. Continue short-term follow-up. POS: OFF
--- NOTE | 2020-08-01 10:35 | DIS ---
DATE OF ADMISSION: 07/03/2020 DATE OF DISCHARGE: 07/31/2020 TIME OF : 1433. CAUSE OF : Acute hypoxic respiratory failure secondary to COVID-19 pneumonia. SECONDARY DIAGNOSES: Hyponatremia, acute kidney injury, hypertension, type 2 diabetes, obesity. HPI/HOSPITAL COURSE: Mr. Celaya was a 54-year-old male, who presented to the hospital on 07/03/2020 with a chief complaint of worsening COVID symptoms. He was tested positive on the at an outside facility. On initial presentation, he was hypoxic and was placed on 4 L of nasal cannula oxygen. Over the course of his hospitalization, he continued to require oxygen therapy. He received IV antibiotics for bacterial superinfection, Decadron to suppress inflammation in convalescent plasma. He was not a candidate for remdesivir secondary to his renal function. Over the course of his hospitalization, he continued to require more oxygen, being placed on high-flow nasal cannula and then subsequently intubated on July 16. He continued to require ventilator support throughout his hospitalization. Decision was made to trach and peg he underwent those procedures on the 28 of July, and the initial plan was to discharge home to a long-term care facility. However, the patient's status continued to worsen and family was able to agree that palliative care and hospice measures should be taken. On day of , in moving to comfort measures, he was extubated and subsequently . Job ID: [id number] MTDD
--- NOTE | 2020-08-01 11:43 | EKG ---
Test Reason : Blood Pressure : / mmHG Vent. Rate : 134 BPM Atrial Rate : 134 BPM P-R Int : 124 ms QRS Dur : 084 ms QT Int : 290 ms P-R-T Axes : 017 -44 064 degrees QTc Int : [address] elevation, consider early repolarization, pericarditis, or injury Possible Left atrial enlargement Left axis deviation Moderate voltage criteria for LVH, may be normal variant Nonspecific T wave abnormality Abnormal ECG Confirmed by SAMEER VELASQUEZ ([id number]) on 08/01/2020 11:43:02 AM Referred By: MIKE Confirmed By:SAMEER VELASQUEZ
--- NOTE | 2020-08-04 18:26 | PQF ---
Dear : Cam Alonso Date 08/04/2020 Please exercise your independent, professional judgment in responding to the clarification form. Clinical indicators are provided on the bottom of this form for your review Can you please further clarify the diagnosis of the patient? Please check appropriate box(es): [ ] Acute Metabolic Encephalopathy Metabolic [ ] Acute Toxic Encephalopathy [ ] Acute Septic Encephalopathy [ X ] Other diagnosis please specify_hypoxic encephalopathy [ ] Unable to determine Physician Signature: Date/Time: For continuity of documentation, please document condition throughout progress notes and discharge summary. Thank You. To be completed by CDI/Coding staff for physician review: Present Clinical Indicators - Signs / Symptoms / Labs Results and Location in Medical Record [ x ] Diminish respiratory status Family PN pg.1 07/18/20 [ x ] Hypoglycemia and hypotension Family PN pg.1 07/18/20 [ x ] Episodes of hypoglycemia this AM Family PN pg.1 07/28 pg.1 [ x ] Unable to wean due to agitation Family PN pg.1 07/28 pg.1 [ x ] POC Glucose: 58L, less than 30L, 42L, 54L, 52L, 67L Laboratory Acute respiratory failure 2/ COVID19 Pneumonia DS pg.1 Present Risk Factors Results and Location in Medical Record [ x ] Acute respiratory failure Family PN pg.2 07/09/20 [ x ] COVID 19 Pneumonia Family PN pg.2 07/09/20 [ x ] DM H and P pg.1 [ x ] Sepsis ED Provider pg.3 Present Treatments Results and Location in Medical Record [ x ] Intubation Procedure notes 07/16 [ x ] Hypoglycemia protocol Family Med PN pg.5 07/24 [ x ] D50 IV MAR [ x ] IV Fluids MAR [ x ] IV Antibiotics MAR [ x ] Glucose monitoring CDS/Senior Accounting Associate Signature: Cresencio Us Phone #: ext [phone] Date 08/04/20 This is a permanent part of the Medical Record [facility]
== END 2020-07-31 14:30 | disposition expired | DRG 4 ==
LOC: ERS 18:53 → ERHOLD 21:19 → T4-A 07-04 15:45 → CCU 07-16 11:09
PROVIDERS: ADMIT Family Medicine; ATTEND Family Medicine
PROC: 8E0ZXY6 Isolation (ICD-10-PCS; 2020-07-03)
PROC: XW13325 Transfusion of Convalescent Plasma (Nonautologous) into Peripheral Vein, Percutaneous Approach, New Technology Group 5 (ICD-10-PCS; 2020-07-04)
PROC: 5A1955Z Respiratory Ventilation, Greater than 96 Consecutive Hours (ICD-10-PCS; 2020-07-16)
PROC: 3E033XZ Introduction of Vasopressor into Peripheral Vein, Percutaneous Approach (ICD-10-PCS; 2020-07-16)
PROC: 02HV33Z Insertion of Infusion Device into Superior Vena Cava, Percutaneous Approach (ICD-10-PCS; 2020-07-16)
PROC: B548ZZA Ultrasonography of Superior Vena Cava, Guidance (ICD-10-PCS; 2020-07-16)
PROC: 0BH17EZ Insertion of Endotracheal Airway into Trachea, Via Natural or Artificial Opening (ICD-10-PCS; 2020-07-16)
PROC: 0B110F4 Bypass Trachea to Cutaneous with Tracheostomy Device, Open Approach (ICD-10-PCS; principal; 2020-07-28)
PROC: 0DH63UZ Insertion of Feeding Device into Stomach, Percutaneous Approach (ICD-10-PCS; 2020-07-28)
DX: A41.89 Other specified sepsis (principal); U07.1 COVID-19; J12.82 Pneumonia due to coronavirus disease 2019; J96.01 Acute respiratory failure with hypoxia; J15.9 Unspecified bacterial pneumonia; N17.9 Acute kidney failure, unspecified; E87.2 Acidosis; E46 Unspecified protein-calorie malnutrition; E22.2 Syndrome of inappropriate secretion of antidiuretic hormone; E87.3 Alkalosis; G93.1 Anoxic brain damage, not elsewhere classified; Z66 Do not resuscitate; Z51.5 Encounter for palliative care; I12.9 Hypertensive chronic kidney disease with stage 1 through stage 4 chronic kidney disease, or unspecified chronic kidney disease; E11.22 Type 2 diabetes mellitus with diabetic chronic kidney disease; E11.65 Type 2 diabetes mellitus with hyperglycemia; N18.9 Chronic kidney disease, unspecified; E66.9 Obesity, unspecified; E88.81 Metabolic syndrome and other insulin resistance; R06.6 Hiccough; E87.6 Hypokalemia; R33.9 Retention of urine, unspecified; F41.9 Anxiety disorder, unspecified; E83.42 Hypomagnesemia; I95.9 Hypotension, unspecified; E11.649 Type 2 diabetes mellitus with hypoglycemia without coma; R13.10 Dysphagia, unspecified; Z68.32 Body mass index [BMI] 32.0-32.9, adult; Z79.84 Long term (current) use of oral hypoglycemic drugs; Z79.899 Other long term (current) drug therapy
CPT/HCPCS: 0002A; 36415; 36416; 36430; 36600; 71045; 71275; 80048; 80053; 82570; 82728; 82805; 83036; 83605; 83615; 83735; 84100; 84145; 84300; 84443; 84484; 85025; 85379; 85384; 85520; 85610; 85730; 86140; 86850; 86900; 86901; 87040; 87070; 87086; 87205; 87635; 91300; 93005; 93010; 94002; 94003; 94640; 94760; 96365; 96366; 96367; 96375; C9113; J0692; J0696; J1100; J1450; J1630; J1650; J1815; J1940; J2060; J2185; J2250; J2270; J2704; J2765; J3010; J3370; J3475; J3490; J7030; J7070; J7611; J8540; P9017; P9045; Q0164; Q9967; S0020; U0003